=== PATIENT | female | born 1965 | race Caucasian/White ===

== ENCOUNTER → 2019-05-06 07:27 | Outpatient (CLI) | payer OTHER, SELFPAY ==
[2019-05-06 07:58] LABS: Basophils % 0.9 % (0.1-2.0); Eosinophils # 0.2 K/mm3 (0.0-0.4); Eosinophils % 4.5 % (0.1-12.0); Hematocrit 45.4 % (37.0-47.0); Hemoglobin 14.7 g/dL (12.2-16.2); Lymphocytes # 1.7 K/mm3 (0.7-4.5); Lymphocytes % 35.8 % (10-50); Mean Corpuscular HGB Conc 32.5 g/dL (31.8-35.4); Mean Corpuscular Hemoglobin 28.1 pg (27.0-31.2); Mean Corpuscular Volume 86.6 fl (81-99); Mean Platelet Volume 7.6 fl (7.4-10.4); Monocytes # 0.3 K/mm3 (0.1-1.0); Monocytes % 7.2 % (1.7-9.3); Neutrophils # 2.4 K/mm3 (1.8-7.8); Neutrophils % 51.5 % (37.0-80.0); Platelet Count 197 K/mm3 (142-424); Red Blood Count 5.24 M/mm3 (4.20-5.40); Red Cell Distribution Width 14.6 % (11.5-17.5); White Blood Count 4.6 K/mm3 (4.8-10.8)
[2019-05-06 08:30] LABS: Erythrocyte Sedimentation Rate 8 mm/hr (0-30)
[2019-05-06 12:25] LABS: Alanine Aminotransferase 20 U/L (12-78); Albumin Level 3.5 gm/dL (3.4-5.0); Albumin/Globulin Ratio 1.2 (1.1-1.8); Alkaline Phosphatase 101 U/L (46-116); Anion Gap 10.9 mEq/L (5-15); Aspartate Amino Transferase 17 U/L (15-37); Bilirubin,Total 0.6 mg/dL (0.2-1.0); Blood Urea Nitrogen 18 mg/dL (7-18); Carbon Dioxide 27 mmol/L (21.0-32.0); Chloride 110 mmol/L (98-107); Chol/HDL Ratio 2.1 (1-3.5); Cholesterol 114 mg/dL (140-200); Creatinine,Serum 0.68 mg/dL (0.55-1.02); Estimated Glomerular Filt Rate 90 ml/min (>60); Free T4 (Free Thyroxine) 1.07 ng/dl (0.76-1.46); GFR (African American) 109 ML/MIN (>60); Glucose 95 mg/dL (74-106); HDL Cholesterol 54 mg/dL (29-89); LDL Cholesterol 44 mg/dL (0-130); Potassium 3.9 mmoL/L (3.5-5.1); Sodium 144 mmol/L (136-145); Thyroid Stimulating Hormone 1.57 uIU/ml (0.358-3.740); Total Protein,Serum 6.5 gm/dL (6.4-8.2); Triglycerides 80 mg/dL (30-200); VLDL Cholesterol 16 mg/dL (0-40)
[2019-05-06 12:26] LABS: C-Reactive Protein < 0.2 mg/dL (0.0-0.9)
[2019-05-07 13:20] LABS: Folate 14.1 ng/mL (>3.0); Vitamin B12 1515 pg/mL (232-1245); Vitamin D 25 Hydroxy 29.3 ng/mL (30.0-100.0)
[2019-05-07 13:21] LABS: RA Latex Turbid. <10.0 IU/mL (0.0-13.9)
[2019-05-07 13:22] LABS: Anti-Centromere B Antibodies <0.2 AI (0.0-0.9); Anti-Jo-1 <0.2 AI (0.0-0.9); Anti-Smith Antibody <0.2 AI (0.0-0.9); Antichromatin Antibodies <0.2 AI (0.0-0.9); Antiscleroderma-70 Antibodies <0.2 AI (0.0-0.9); RNP Antibodies 0.5 AI (0.0-0.9); Sjogren's Anti-SS-A <0.2 AI (0.0-0.9); Sjogren's Anti-SS-B <0.2 AI (0.0-0.9)
[2019-05-08 01:06] LABS: PTT-LA 35.4 sec (0.0-51.9); dRVVT 40.9 sec (0.0-47.0)
[2019-05-08 07:11] LABS: Anti-Cyclic Citrullinated Pept 19 units (0-19); Anti-DNA (DS) Ab Qn <1 IU/mL (0-9); Lupus Reflex Interpretation Comment: (.)
== END ==
PROVIDERS: Visit Provider Nurse Practitioner Family
DX: R53.83 Other fatigue (principal); M25.50 Pain in unspecified joint; R68.89 Other general symptoms and signs
CPT/HCPCS: 36415; 80053; 80061; 82607; 82652; 82746; 84439; 84443; 85025; 85613; 85651; 86140; 86200; 86225; 86235; 86431

== ENCOUNTER → 2019-05-12 08:00 | Outpatient (CLI) | payer OTHER, SELFPAY ==
--- NOTE | 2019-05-12 08:06 | XR_ITS ---
XR hip LT 2-3V w/pelvis HISTORY: ITS.REASON: pain ORDERING PHYSICIAN: Jacklyn Pepe APRN PATIENT AGE: 53 years COMPARISON: None FINDINGS: There are moderate osteoarthritic changes of the left hip. There is some subchondral cystic change of the femoral head/acetabulum. No fracture or dislocation. IMPRESSION: Moderate osteoarthritis of the left hip with subchondral cystic change
--- NOTE | 2019-05-12 08:06 | XR_ITS ---
XR knee RT 2V HISTORY: ITS.REASON: pain ORDERING PHYSICIAN: Jacklyn Pepe APRN PATIENT AGE: 53 years COMPARISON: None FINDINGS: There are mild tricompartmental osteoarthritic changes greater at the medial compartment and patellofemoral joint. No fracture or dislocation. There is some dystrophic calcification anterior to the proximal patella. IMPRESSION: Osteoarthritis
--- NOTE | 2019-05-12 08:06 | XR_ITS ---
EXAM: XR lumbar spine 2-3V HISTORY: Low back pain ITS.REASON: pain ORDERING PHYSICIAN: Jacklyn Pepe APRN PATIENT AGE: 53 years COMPARISON: None FINDINGS: There is minimal anterolisthesis of L4 on L5 of 3 mm. There is mild degenerative disc disease at L1-L2 and L2-L3. No fracture or dislocation. Mild facet arthritic changes are present at L5-S1. No lytic or blastic change. There is mild sclerosis of left SI joint. There is degenerative disc disease in the lower thoracic spine with mild wedging of T12 and T11 and T10. This may be chronic and could be confirmed with MRI clinically warranted. IMPRESSION: Degenerative changes, no acute finding.
== END ==
PROVIDERS: PCP Emergency Medicine; Visit Provider Nurse Practitioner Family
DX: M25.552 Pain in left hip (principal); M25.561 Pain in right knee; M54.5 Low back pain
CPT/HCPCS: 72100; 73502; 73560

== ENCOUNTER → 2019-06-15 14:57 | Outpatient (CLI) | payer OTHER, SELFPAY ==
--- NOTE | 2019-06-15 15:07 | MR_ITS ---
PROCEDURE: MR HEAD/BRAIN WO CON CLINICAL INDICATION: headache, memory loss And in the 2nd none COMPARISON: No exams were available for comparison TECHNIQUE: Routine multiplanar multi echo sequences are performed without gadolinium enhancement. FINDINGS: No midline shift, mass effect, intracranial hemorrhage, or hydrocephalus is evident. The cerebellopontine angles, cerebellum, and brainstem have an unremarkable appearance. There are few punctate T2 white matter hyperintensities which are nonspecific in the frontal areas and subcortical region in the right parietal lobe. No evidence of acute infarction. The pituitary, optic chiasm, corpus callosum, and craniocervical junction has an unremarkable appearance. No mastoid effusion or sinus air-fluid level. IMPRESSION: There are few punctate T2 white matter hyperintensities nonspecific and may be due to small skin chasity gliotic foci but could also be seen with migraine headache. No acute intracranial findings apparent Dictated by: Reji Gordon MD 06/18/2019 07:06 Electronically signed by Reji Gordon MD in [facility] 06/18/2019 07:06
== END ==
PROVIDERS: PCP Nurse Practitioner Family; Visit Provider Nurse Practitioner Family
DX: R51 Headache (principal); R41.3 Other amnesia; G47.33 Obstructive sleep apnea (adult) (pediatric); E66.01 Morbid (severe) obesity due to excess calories; G47.00 Insomnia, unspecified; G47.19 Other hypersomnia; G47.8 Other sleep disorders; R06.83 Snoring; R53.83 Other fatigue
CPT/HCPCS: 36415; 70551; 86618; 95806

== ENCOUNTER → 2019-08-14 09:44 | Outpatient (CLI) | payer OTHER, SELFPAY ==
[2019-08-14 11:45] LABS: Ferritin 31 ng/mL (8-388)
[2019-08-15 08:23] LABS: Iron 54 ug/dL (27-159); UIBC 251 ug/dL (131-425)
[2019-08-15 18:18] LABS: Iron Saturation 18 % (15-55)
== END ==
PROVIDERS: Nurse Practitioner Family; Visit Provider Specialist
DX: E83.10 Disorder of iron metabolism, unspecified (principal); G25.81 Restless legs syndrome; Z86.39 Personal history of other endocrine, nutritional and metabolic disease
CPT/HCPCS: 36415; 82728; 83540; 83550

== ENCOUNTER → 2019-09-10 09:15 | Outpatient (CLI) | payer OTHER, SELFPAY ==
--- NOTE | 2019-09-10 09:17 | MM_ITS ---
PROCEDURE: MM DIG SCREENING MAMM BI W/CAD CLINICAL INDICATION: Screening There is no personal or family history of breast cancer. COMPARISON: MAMMO SCREEN from 06/14/2016 from 07/10/2018 MAMMO SCREEN from 07/10/2018 from outside facility [place], [place] TECHNIQUE: Standard CC and MLO images were obtained. R2 CAD reviewed. FINDINGS: Breasts are composed primarily of fat with minimal scattered fibroglandular densities throughout both breasts and the findings of bilateral and symmetrical. There is a benign-appearing microcalcification right breast. There is no suspicious lesion and no suspicious microcalcifications. IMPRESSION: Fatty type breast parenchyma with no suspicious lesions seen BI-RAD Category: 2 Benign Finding(s) FOLLOW-UP: 1YR 1 Year Follow-up (A letter has been sent to the patient regarding results of the study.) Dictated by: Dr. Dre Connell MD 09/21/2019 11:[address] Dre Connell MD in [facility] 09/21/2019 11:09
[2019-09-10 10:17] LABS: Basophils # 0.1 K/mm3 (0-0.2); Basophils % 0.7 % (0.1-2.0); Eosinophils # 0.3 K/mm3 (0.0-0.4); Hematocrit 45.1 % (37.0-47.0); Hemoglobin 14.3 g/dL (12.2-16.2); Lymphocytes # 1.9 K/mm3 (0.7-4.5); Lymphocytes % 31.1 % (10-50); Mean Corpuscular HGB Conc 31.8 g/dL (31.8-35.4); Mean Corpuscular Hemoglobin 28.3 pg (27.0-31.2); Mean Corpuscular Volume 89.2 fl (81-99); Mean Platelet Volume 8.3 fl (7.4-10.4); Monocytes # 0.3 K/mm3 (0.1-1.0); Monocytes % 5.1 % (1.7-9.3); Neutrophils # 3.6 K/mm3 (1.8-7.8); Neutrophils % 58.1 % (37.0-80.0); Platelet Count 195 K/mm3 (142-424); Red Blood Count 5.06 M/mm3 (4.20-5.40); Red Cell Distribution Width 13.9 % (11.5-17.5); White Blood Count 6.2 K/mm3 (4.8-10.8)
[2019-09-10 12:29] LABS: Alanine Aminotransferase 28 U/L (12-78); Albumin Level 3.5 gm/dL (3.4-5.0); Albumin/Globulin Ratio 1.1 (1.1-1.8); Alkaline Phosphatase 103 U/L (46-116); Anion Gap 12.2 mEq/L (5-15); Aspartate Amino Transferase 24 U/L (15-37); Bilirubin,Total 0.5 mg/dL (0.2-1.0); Blood Urea Nitrogen 27 mg/dL (7-18); Carbon Dioxide 28 mmol/L (21.0-32.0); Chloride 108 mmol/L (98-107); Chol/HDL Ratio 2.3 (1-3.5); Cholesterol 127 mg/dL (140-200); Creatinine,Serum 0.74 mg/dL (0.55-1.02); Estimated Glomerular Filt Rate 81 ml/min (>60); GFR (African American) 99 ML/MIN (>60); Globulin 3.1 gm/dl (1.3-3.2); Glucose 84 mg/dL (74-106); HDL Cholesterol 56 mg/dL (29-89); LDL Cholesterol 50 mg/dL (0-130); Potassium 4.2 mmoL/L (3.5-5.1); Sodium 144 mmol/L (136-145); T4 (Thyroxine) 9.3 ug/dl (4.7-13.3); Thyroid Stimulating Hormone 1.81 uIU/ml (0.358-3.740); Total Protein,Serum 6.6 gm/dL (6.4-8.2); Triglycerides 103 mg/dL (30-200); VLDL Cholesterol 21 mg/dL (0-40)
[2019-09-10 12:35] LABS: Calcium 8.6 mg/dL (8.5-10.1)
[2019-09-11 10:49] LABS: Vitamin D 25 Hydroxy 16.3 ng/mL (30.0-100.0)
== END ==
PROVIDERS: PCP Nurse Practitioner Family; Visit Provider Nurse Practitioner Family
DX: Z01.818 Encounter for other preprocedural examination (principal); Z12.31 Encounter for screening mammogram for malignant neoplasm of breast; M25.552 Pain in left hip
CPT/HCPCS: 36415; 77067; 80053; 80061; 82652; 84436; 84443; 85025; 93005

== ENCOUNTER → 2019-09-10 09:55 | Outpatient (CLI) | payer OTHER, SELFPAY ==
--- NOTE | 2019-09-10 10:19 | ECG_ITS ---
APPROVED REPORT Exam: Resting ECG HR:59 bpm ECG Measurements Heart Rate 59 AXES MD 140 P 48 QRSd 122 QRS 15 QT 442 T 0 QTc 437 <Conclusion> Sinus bradycardia Right bundle branch block Abnormal ECG Electronically signed by : Balta Hernandez, 09/11/2019 16:36:38
== END ==
PROVIDERS: Visit Provider Nurse Practitioner Family
DX: Z01.818 Encounter for other preprocedural examination (principal)
CPT/HCPCS: 36415; 80053; 80061; 82652; 84436; 84443; 85025; 93005

== ENCOUNTER → 2019-09-24 09:08 | Outpatient (CLI) | payer OTHER, SELFPAY ==
[2019-09-24 12:14] LABS: Anion Gap 11.1 mEq/L (5-15); Blood Urea Nitrogen 16 mg/dL (7-18); Calcium 8.9 mg/dL (8.5-10.1); Carbon Dioxide 30 mmol/L (21.0-32.0); Chloride 105 mmol/L (98-107); Creatinine,Serum 0.81 mg/dL (0.55-1.02); Estimated Glomerular Filt Rate 73 ml/min (>60); GFR (African American) 89 ML/MIN (>60); Glucose 94 mg/dL (74-106); Potassium 4.1 mmoL/L (3.5-5.1); Sodium 142 mmol/L (136-145)
== END ==
PROVIDERS: Visit Provider Nurse Practitioner Family
DX: R79.9 Abnormal finding of blood chemistry, unspecified (principal)
CPT/HCPCS: 36415; 80048

== ENCOUNTER → 2019-10-16 11:41 | Outpatient (CLI) | payer MEDICAID, SELFPAY ==
--- NOTE | 2019-10-16 | CA_ITS ---
APPROVED REPORT Exam: Pharmacologic Technologist: Gwendolyn Lovelace, Ht: 5 ft 3 in Wt: 275 lbs BSA: 2.21 m2 HR: 59 bpm BP: 142/89 mmHg Rhythm: NORMAL SINUS RHYTHM,RBBB Medical History Medications: Mirapex,,,,, Lexapro,,,,, Iron,,,,, Vit D,,,,, ZYRTEC,,,,, B-12,,,,, OxYbuterin,,,,, Vistaril,,,,, WELLBUTIN,,,,, MilLOXICAM,,,,, Cardiac Risk Factors: FHX of CAD Stress Test Details Test: LEXISCAN HR Resting HR: 55 bpm Max Heart Rate (APMHR): 164 bpm Max HR Achieved: 90 bpm Target HR (85% APMHR): 139 bpm % of APMHR: 54 Recovery HR: 70 bpm BP Resting BP: 142.0/89.0 mmHg Max BP: 170.0/71.0 mmHg Recovery BP: 153.0/72.0 mmHg ECG Resting ECG: NORMAL SINUS RHYTHM,RBBB Clinical Reason for Termination: Completed Protocol Exercise duration: 04:12 min Highest Stage Achieved: Exercise capacity: 1.0 METs Stress ECG Conclusion DURING LEXISCAN INFUSION PATIENT HAD NO SYMPTOMS. RARE PVC. <1.5MM ST SEGMENT CHANGES. NON-DIAGNOSTIC. Test Summary REST . . . . . . . Sitting REST 08:09 . . 55 . 142/ 89 . . Stage 1 01:00 . . 89 . . . . Stage 2 01:00 . . 81 . 160/ 75 . . Stage 3 01:00 . . 75 . . . . Stage 4 01:00 . . 71 . 162/ 66 . . Stage 4 01:12 . . 70 . 162/ 66 . Stop exercise at 04:12 RECOVERY 01:00 . . 63 . . . . RECOVERY 02:00 . . 70 . . . . RECOVERY 03:00 . . 63 . 165/ 63 . . RECOVERY 04:00 . . 67 . 170/ 71 . . RECOVERY 05:00 . . 66 . 170/ 71 . . RECOVERY 05:23 . . 67 . 170/ 71 . . Electronically signed by : Luis Hollis, 10/20/2019 05:43:04
--- NOTE | 2019-10-16 11:41 | NM_ITS ---
APPROVED REPORT Exam: Nuclear Stress Test Indication: ABN EKG, PALPITATIONS, FATIQUE, FM. HX.,OBESITY Patient Location: Outpatient Stress Tech: Isaura Stephenson [place] Tech:CANDIDO Sánchez RT (R)(N)(M) Ht: 5 ft 3 in Wt: 275 lbs Bra Size: C HR: 59 bpm BP: 142/89 mmHg BSA: 2.21 m2 BMI: 48.7 History: ABN EKG, PALPITATIONS, FATIQUE, FM. HX.,OBESITY Procedure: Patient received a 0.4 mg of intravenous Lexiscan, resting heart rate 59 bpm, resting blood pressure 142/89 mmHg, with Lexiscan maximum heart rate achived was 82 bpm which is Less than 85 % of the maximum predicted heart rate and blood pressure was 160/75 mmHg. With Lexiscan, patient denied any complaint of chest pain. Electrocardiogram Resting electrocardiogram showed sinus rhythm right bundle branch block, with Lexiscan there is less than 1.[address] segment depression noted from the baseline EKG. The EKG portion of the Lexiscan Myoview is nondiagnostic. Cardiac Stress and Resting SPECT Images: Cardiac Stress and Resting SPECT images were obtained using technetium 99m Myoview 31.4 mCi stress and 10.85 mCi at rest. Gated SPECT with analysis of segmental wall motion and calculation of the ejection fraction also done. Cardiac stress and resting SPECT images show uniform myocardial activity without segmental perfusion abnormality, computer derived ejection fraction is 64% with no regional wall motion abnormality, right ventricle is normal size and contractility. Conclusion: 1. The EKG portion of the Lexiscan Myoview is nondiagnostic. 2. No scintigraphic evidence of reversible ischemia seen, computer derived ejection fraction is 64% with no regional wall motion abnormality, right ventricle is normal size and contractility. 3. Normal Lexiscan Myoview study. Electronically signed by : Luis Hollis, 10/16/2019 15:09:28
--- NOTE | 2019-10-16 12:10 | CA_ITS ---
APPROVED REPORT EXAM: Comprehensive 2D, Doppler, and color-flow Echocardiogram Hydrodynamics Professor: Liset Shrestha RDCS Ht: 5 ft 3 in Wt: 280lbs BSA: 2.23 BP: 110/70 mmHg Indications: Abnormal ECG, Pre-Op Clearance, Obesity 2D Dimensions LVOT 1.92 cm (M/F) 1.5-2.5 M-Mode Dimensions RVDd 2.36 cm (0.9-2.6) LVDd 5.95 cm (3.5-5.7) LVDs 4.12 cm (3.5-5.7) IVSd 0.88 cm (0.6-1.1) PWd 0.84 cm (0.6-1.1) EF (Teich) 57.50% FS 30.80% EDV (Teich) 176.60 mL ESV (Teich) 75.10 mL LV Diastology E/A Ratio 1.14 Mitral Valve MV A Velocity 43.00 (40-130 cm/s) Left Ventricle Left atrium is normal size, left ventricle is normal size, there is no concentric left ventricular hypertrophy, visually estimated ejection fraction 55% with no regional wall motion abnormality, diastolic parameters are within normal range. Right Ventricle Right atrium and right ventricular normal size and contractility. Aortic Valve Aortic valve is minimally thickened and fibrosed, there is no aortic stenosis, there is trace aortic insufficiency. Mitral Valve Mitral valve is grossly normal, there is mild mitral regurgitation. Tricuspid Valve Tricuspid valve is grossly normal, there is mild tricuspid regurgitation. Pulmonic Valve Pulmonic valve is poorly visualized. Great Vessels Aortic root is normal size. Pericardium No significant pericardial effusion noted. Conclusion 1. Normal left ventricular size, preserved left ventricular systolic function, visually estimated ejection fraction 55% with no regional wall motion abnormality, diastolic parameters are within normal range. 2. Trace aortic, mild mitral and tricuspid regurgitation. 3. No significant pericardial effusion noted. Electronically signed by : Luis Hollis, 10/16/2019 13:52:53
--- NOTE | 2019-10-16 13:33 | HMH.ITSHM ---
Current Home Medications as stated by this patient Vianca Mello or district sales representative. []b-12, vit d, mirapex, wellbutrin, zyrtec, lexapro, vistatril, maloxican, oxybutone
== END ==
PROVIDERS: PCP Nurse Practitioner Family; Visit Provider Nurse Practitioner Family
DX: Z01.810 Encounter for preprocedural cardiovascular examination (principal); R94.31 Abnormal electrocardiogram [ECG] [EKG]
CPT/HCPCS: 78452; 93017; 93306; A9502; J2785

== ENCOUNTER → 2021-05-31 13:44 | Outpatient (CLI) | payer MEDICAID, SELFPAY ==
--- NOTE | 2021-05-31 13:44 | MM_ITS ---
PROCEDURE: MM DIG SCREENING MAMM BI W/CAD Digital Breast Tomosynthesis Included CLINICAL INDICATION: Breast cancer screening by mammogram COMPARISON: MG from 07/10/2018 MG MAMMO SCREEN from 07/10/2018 MG MM DIG SCREENING MAMM BI W/CAD from 09/10/2019 TECHNIQUE: Standard CC and MLO images and 3D Tomosynthesis was obtained. R2 CAD reviewed. FINDINGS: The breasts are almost entirely fatty. No suspicious appearing mass, malignant-appearing microcalcification, architectural distortion, or skin thickening. No significant change. There are benign-appearing calcifications and benign-appearing nodular density is present in the upper deep aspect of the right breast consistent with a lymph node and in the lower inner aspect of the right breast which is stable. IMPRESSION: Benign findings. No evidence of malignancy BI-RAD Category: 2 Benign Finding FOLLOW-UP: 1 YR 1 Year Follow-up (A letter has been sent to the patient regarding results of the study.) Dictated by: Reji Gordon MD 06/08/2021 09:50 Reji Gordon MD in [facility] 06/08/2021 09:50
== END ==
PROVIDERS: PCP Emergency Medicine; Visit Provider Physician Assistant
DX: Z12.31 Encounter for screening mammogram for malignant neoplasm of breast (principal)
CPT/HCPCS: 77063; 77067

== ENCOUNTER 2021-06-28 17:17 | Inpatient (IN) | payer MEDICAID, SELFPAY ==
[2021-06-28] VITALS (14 sets, daily range): BP systolic 92–139; BP diastolic 50–84; PULSE 60–95; RESP 13–38; TEMP 37.9; O2SAT 56–98; BMI 51.5
--- NOTE | 2021-06-28 17:25 | XR_ITS ---
PROCEDURE INFORMATION: Exam: XR Chest Exam date and time: 06/28/2021 5:25 PM Age: 55 years old Clinical indication: Patient HX: Cough; Low o2 TECHNIQUE: Imaging protocol: XR of the chest. Views: 1 view. COMPARISON: No relevant prior studies available. FINDINGS: Lungs: Patchy bilateral airspace opacities are seen. Pleural spaces: Unremarkable. No pleural effusion. No pneumothorax. Heart/Mediastinum: Unremarkable. No cardiomegaly. Bones/joints: Unremarkable. IMPRESSION: Patchy bilateral airspace opacities most compatible with infection.
--- NOTE | 2021-06-28 17:34 | ECG_ITS ---
APPROVED REPORT Exam: Resting ECG HR:93 bpm ECG Measurements Heart Rate 93 AXES WI 114 P 21 QRSd 122 QRS -30 QT 388 T -33 QTc 482 Conclusion Normal sinus rhythm Left axis deviation Right bundle branch block Moderate voltage criteria for LVH, may be normal variant T wave abnormality, consider inferolateral ischemia Abnormal ECG Electronically signed by : Balta Hernandez MD 06/29/2021 17:28:48
[2021-06-28 18:04] LABS: Influenza A, PCR Not Detected (NotDetected); Influenza B, PCR Not Detected (NotDetected)
[2021-06-28 18:07] LABS: Basophils # 0.1 K/mm3 (0-0.2); Basophils % 1.3 % (0.1-2.0); Eosinophils % 0.2 % (0.1-12.0); Hematocrit 47.8 % (37.0-47.0); Hemoglobin 15.7 g/dL (12.2-16.2); Lymphocytes # 1.3 K/mm3 (0.7-4.5); Lymphocytes % 20.8 % (10-50); Mean Corpuscular HGB Conc 32.8 g/dL (31.8-35.4); Mean Corpuscular Volume 85.4 fl (81-99); Mean Platelet Volume 8.9 fl (7.4-10.4); Monocytes # 0.4 K/mm3 (0.1-1.0); Monocytes % 6.6 % (1.7-9.3); Neutrophils # 4.3 K/mm3 (1.8-7.8); Neutrophils % 71.1 % (37.0-80.0); Platelet Count 219 K/mm3 (142-424); Red Blood Count 5.59 M/mm3 (4.20-5.40); Red Cell Distribution Width 14.8 % (11.5-17.5)
[2021-06-28 18:11] LABS: Chloride 94 mmol/L (98-107); Potassium 3.6 mmoL/L (3.5-5.1); Sodium 133 mmol/L (136-145)
[2021-06-28 18:14] LABS: Alanine Aminotransferase 33 U/L (12-78); Albumin Level 3.4 g/dl (3.5-5.0); Alkaline Phosphatase 90 U/L (38-126); Anion Gap 13.6 mEq/L (5-15); Aspartate Amino Transferase 93 U/L (14-36); Bilirubin,Total 0.8 mg/dl (0.2-1.3); Blood Urea Nitrogen 20 mg/dl (7-17); Calcium 8.3 mg/dl (8.4-10.2); Carbon Dioxide 29 mmol/L (22.0-30.0); Creatinine Clearance Estimated 60 mL/min (50-200); Estimated Glomerular Filt Rate 65 ml/min (>60); GFR (African American) 78 ML/MIN (>60); Globulin 3.3 g/dL (1.3-3.2); Glucose 121 mg/dl (74-100); Total Protein,Serum 6.7 g/dl (6.3-8.2)
[2021-06-28 18:24] LABS: NT Pro Brain Natriuretic Pep. 73.6 pg/mL (0-125)
[2021-06-28 18:27] LABS: Troponin I 0.03 ng/ml (0.00-0.034)
--- NOTE | 2021-06-28 18:38 | HMH.EDGENADL ---
ED Disposition Clinical Impression: Pneumonia due to COVID-19 virus, Acute respiratory failure with hypoxia, Morbidly obese HTN (hypertension) Qualifiers: Hypertension type: primary hypertension Qualified Code(s): I10 - Essential (primary) hypertension Disposition: Admitted As Inpatient Condition on Discharge: Serious Referrals: Jj Livingston MD [Primary Care Provider] - - Critical Care Critical Care Time: Yes Attestation: On 06/28/21, the high probability of a clinically significant, sudden or life threatening deterioration of the following system(s) required my full and direct attention, intervention and personal management. The time I documented below is in addition to time spent performing reported procedures but includes the following listed in this critical care notation. Total Critical Care Time: 30 Vital system(s) involved:: Circulatory Failure, Metabolic Failure, Respiratory Failure My critical care processes included: Assessment & monitoring of V/S, Initial and Re-exams, Data Review/Interpretation, Coordinating Care, Medication Orders and management, Documentation Medical Decision Making - Medical Records Medical records reviewed: Yes: I reviewed the patient's medical records. - Michael Inquiry Pt receiving controlled substance: No Vital Signs: 06/28/21 17:18 06/28/21 17:19 06/28/21 17:30 Temperature 100.2 F H Temperature Source Oral Pulse Rate 91 H Pulse Rate [Left Radial] 83 Respiratory Rate 28 H 25 H Blood Pressure 139/83 Blood Pressure [Right Arm] 139/83 Blood Pressure Mean [Right Arm] 101 Blood Pressure Source [Right Arm] Automatic Cuff Blood Pressure Position [Right Arm] Sitting 02 Sat by Pulse Oximetry 56 L 92 L 64 L Oxygen Delivery Method Room Air BiPAP 06/28/21 18:00 Temperature Temperature Source Pulse Rate 95 H Pulse Rate [Left Radial] Respiratory Rate 18 Blood Pressure 123/77 Blood Pressure [Right Arm] Blood Pressure Mean [Right Arm] Blood Pressure Source [Right Arm] Blood Pressure Position [Right Arm] 02 Sat by Pulse Oximetry 96 Oxygen Delivery Method - Lab Data Lab Results 06/28/21 17:40: WBC 6.0, RBC 5.59 H, Hgb 15.7, Hct 47.8 H, MCV 85.4, MCH 28.0, MCHC 32.8, RDW 14.8, Plt Count 219, MPV 8.9, Neut % (Auto) 71.1, Lymph % (Auto) 20.8, [place] % (Auto) 6.6, Eos % (Auto) 0.2, Baso % (Auto) 1.3, Neut # (Auto) 4.3, Lymph # (Auto) 1.3, [place] # (Auto) 0.4, Eos # (Auto) 0.0, Baso # (Auto) 0.1 06/28/21 17:40: Sodium 133 L, Potassium 3.6, Chloride 94 L, Carbon Dioxide 29, Anion Gap 13.6, BUN 20 H, Creatinine 0.90, Estimated Creat Clear 60, Estimated GFR 65, Est GFR ( Amer) 78, Glucose 121 H, Calcium 8.3 L, Total Bilirubin 0.8, AST 93 H, ALT 33, Alkaline Phosphatase 90, Troponin I 0.03, NT-Pro-B Natriuret Pep 73.6, Total Protein 6.7, Albumin 3.4 L, Globulin 3.3 H, Albumin/Globulin Ratio 1.0 L 06/28/21 17:40: SARS-CoV-2 (PCR) Detected A, Influenza A Untype (PCR) Not detected, Influenza Type B (PCR) Not detected Result diagrams: 06/28/21 17:40 06/28/21 17:40 Orders (Tests/Meds): ED MEDICATIONS Generic Name Dose Route Start Last Admin Trade Name Freq PRN Reason Stop Dose Admin Sodium Chloride 1,000 mls @ 999 mls/hr 06/28/21 17:30 06/28/21 17:38 Sod Chlor 0.9% 1000ml Bag IV 06/28/21 18:30 999 mls/hr .Q1H1M YARITZA Administration Discontinued Medications Generic Name Dose Route Start Last Admin Trade Name Freq PRN Reason Stop Dose Admin Acetaminophen 1,000 mg 06/28/21 18:38 Acetaminophen 500mg Tab PO 06/28/21 18:39 ONCE ONE Dexamethasone Sodium Phosphate 10 mg 06/28/21 17:25 06/28/21 17:38 Dexamethasone 4mg/Ml 5ml Mdv IV 06/28/21 17:26 10 mg ONCE ONE Administration ORDERS Category Date Time Status Lactic Acid Stat Lab 06/28/21 18:37 Received Troponin I Q3H Lab 06/28/21 20:30 Ordered Troponin I Q3H Lab 06/28/21 23:30 Ordered - ECG Data Tracing #1 I reviewed this ECG and interpret
--- NOTE | 2021-06-28 18:46 | PC.NURSE ---
paged Dr Hernandez
--- NOTE | 2021-06-28 18:50 | PC.NURSE ---
notified journeyman powerhouse operator of admission no beds available pt will be boarding in ER
--- NOTE | 2021-06-28 18:50 | PC.NURSE ---
CAlled house about admission, due to high inpatient, pt will need to board in the ER
[2021-06-28 18:52] LABS: Coronavirus 19, PCR Detected (NotDetected)
[2021-06-28 18:53] LABS: Lactic Acid 1.6 mmol/L (0.7-2.1)
--- NOTE | 2021-06-28 19:30 | PC.NURSE ---
CHecked on pt's bipap and care. Pt reports to be feeling better . Less SOA. BP cuff replaced as it was off.
--- NOTE | 2021-06-28 20:11 | HMH.HP ---
*Admission Date: 06/28/21 *Chief complaint: sob *History of present illness: this patient presented to the ed - a 55-year-old female presented to the emergency department with some difficulty breathing. Patient was diagnosed with coronavirus last week. Patient is unvaccinated. She states that her difficulty breathing is been getting worse over the last few days. She states that she could not catch her breath today which prompted her to come the emergency department. Patient appears to be in severe respiratory distress on presentation. She has discoloration and mottling. She is talking in 2 word sentences. She has had a mild cough, nonproductive in nature. No hemoptysis. Denies any associated chest pain or palpitations. No headache or change in vision. Has had some fevers and chills. No abdominal pain. No diarrhea. pt was found to have pneumonia and hypoxia and was admitted for resp failure treatment and pul eval [facility] History I have reviewed the patient's past medical history: Yes Medical History: Reports:: Anxiety, Cancer, Deep Vein Thrombosis, Depression, Pulmonary Embolism Denies:: Diabetes Mellitus Type 1, Diabetes Mellitus Type 2, Gastroesophageal Reflux Disease(GERD) *Have you ever received a pneumonia vaccine?: No *Have you received a flu vaccine this season?: No Other Medical History: Reports: Anemia, Arthritis, Other Laterality Cases: Right: Carpal Tunnel Release Other Surgeries: Yes: Bariatric Surgery, Colonoscopy, , Hysterectomy-Total, Other Amputation: No Fractures: No - *Social History Smoking Status: Former smoker # Packs/Day (cigarettes): 1 #Yrs smoked (if former smoker): 15 Alcohol Intake: never Alcohol Intake Frequency:: other Substance Use Type: denies use *Occupational Status:: retired, disabled Housing: house Household Members: family, spouse *Travel in the last 8 weeks: None - Psychiatric History Pschychiatric History:: Reports:: Anxiety, Depression Family Hx:: Cancer, Hypertension, Diabetes, Coronary Artery Disease, Stroke, Heart Attack Review of Systems - Review of Systems Review of systems:: pertinent systems reviewed and negative unless documented below - Constitutional Denies fever(s), Denies headache(s) - Eyes Denies change in vision - ENT Denies sore throat - *Cardiovascular Denies chest pain with activity, Reports shortness of breath - *Respiratory Reports cough, Reports shortness of breath, Denies coughing up blood - *Gastrointestinal Denies abdominal pain - *Genitourinary Denies blood in urine - *Musculoskeletal Denies joint pain - Integumentary/Breasts Denies rash - *Neurologic Denies headache(s), Denies seizure-like activity - Psychiatric Denies confusion Meds Home Medications Medication Instructions Recorded Confirmed Type mecobalamin (vitamin B12) 1,000 1,000 mcg SUBLINGUAL DAILY 06/04/19 05/31/21 History mcg disintegrating tablet,sublingual oxybutynin chloride 5 mg 5 mg PO DAILY #30 tab 08/18/19 05/31/21 Rx tablet,extended release 24 hr ferrous sulfate 142 mg (45 mg 142 mg PO DAILY 10/13/19 05/31/21 History iron) tablet,extended release amlodipine 10 mg tablet 10 mg PO DAILY #30 tab 10/27/20 05/31/21 Rx albuterol sulfate 90 mcg/actuation 2 puff INHALATION Q4-6H PRN 30 05/22/21 05/31/21 Rx aerosol inhaler Days #6.7 g cetirizine 10 mg tablet 10 mg PO DAILY #30 tab 05/26/21 05/31/21 Rx fluticasone propionate 50 1 spray INTRANASAL DAILY #16 g 05/26/21 05/31/21 Rx mcg/actuation nasal spray,suspension bupropion HCl 300 mg 24 hr tablet, 300 mg PO DAILY #30 tab 05/30/21 05/31/21 Rx extended release escitalopram oxalate 20 mg tablet 20 mg PO DAILY #30 tab 05/30/21 05/31/21 Rx hydroxyzine pamoate 25 mg capsule 25 mg PO TID PRN #90 cap 05/30/21 05/31/21 Rx bisoprolol fumarate 5 mg tablet 5 mg PO DAILY #30 tab 05/31/21 05/31/21 Rx peg 3350-electrolytes 236 240 ml PO Q10M #4000 ml 06/22/21 Rx gram-22.74 gram-6.74 gram-5.8
--- NOTE | 2021-06-28 21:00 | PC.NURSE ---
Pt resting quietly, tolerating bipap well at this time.
[2021-06-28 21:20] LABS: Troponin I 0.05 ng/ml (0.00-0.034)
--- NOTE | 2021-06-28 22:15 | PC.NURSE ---
FS obtained. Pt transferred to regular floor bed for comfort d/t boarding in ER. Pt also reports she has not been able to void. Cruz cath placed and immediate 600ml return, left in d/t retention.
[2021-06-28 22:39] LABS: POC Glucose,Bedside 132 (70-110)
--- NOTE | 2021-06-28 22:57 | CT_ITS ---
PROCEDURE INFORMATION: Exam: CTA Chest With Contrast Exam date and time: 06/28/2021 10:57 PM Age: 55 years old Clinical indication: Shortness of breath; Additional info: SOB, covid+ TECHNIQUE: Imaging protocol: Computed tomographic angiography of the chest with contrast. 3D rendering (Not supervised by radiologist): MIP and/or 3D reconstructed images were created by the technologist. Radiation optimization: All CT scans at this facility use at least one of these dose optimization techniques: automated exposure control; mA and/or kV adjustment per patient size (includes targeted exams where dose is matched to clinical indication); or iterative reconstruction. Contrast material: ISOVUE 370; Contrast volume: 70 ml; Contrast route: INTRAVENOUS (IV); COMPARISON: CR XR CHEST PORTABLE 06/28/2021 6:15 PM FINDINGS: Pulmonary arteries: No evidence of pulmonary embolus to the segmental level in most cases Aorta: Unremarkable. No aortic aneurysm. No aortic dissection. Lungs: Multiple calcified pulmonary nodules are seen. Moderate bilateral patchy airspace opacities are seen. Moderate bilateral dependent collapse/consolidation. Pleural spaces: Unremarkable. No pneumothorax. No pleural effusion. Heart: Unremarkable. No cardiomegaly. No pericardial effusion. Lymph nodes: Mild mediastinal adenopathy is seen with calcifications. Stomach and bowel: Postsurgical changes seen in the stomach. Moderate hiatal hernia is present. Bones/joints: Unremarkable. No acute fracture. Soft tissues: Unremarkable. IMPRESSION: 1. No evidence of pulmonary embolus 2. Moderate multifocal airspace disease compatible with infection
--- NOTE | 2021-06-28 23:04 | PC.NURSE ---
Dr. Livingston would like ABG & CTA PE protocol, respiratory and radiology notified.
--- NOTE | 2021-06-28 23:21 | PC.NURSE ---
Collected 3rd troponin. Pt denies any complaints. Offered water, pt refused at this time.
[2021-06-28 23:28] LABS: ABG Base Excess -5.3 mmol/L (-2.4-2.3); ABG HCO3 19.9 mmhg (22.0-26.0); ABG Oxygen Saturation 96 % (90-100); ABG PCO2 34.7 mmhg (35.0-45.0); ABG PH 7.38 mmol/L (7.35-7.45); ABG PO2 83.7 mmhg (80-100); ABG TCO2 20.9 mmhg (23-27)
[2021-06-28 23:30] LABS: Allen's Test Acceptable; Oxygen 100 %; Pressure Support 8; Source Right Radial
--- NOTE | 2021-06-28 23:37 | PC.NURSE ---
pt to ct scan, Miguel Kendall RN to accompany radiology
[2021-06-28 23:48] LABS: Troponin I 0.04 ng/ml (0.00-0.034)
[2021-06-29] VITALS (60 sets, daily range): BP systolic 94–182; BP diastolic 49–103; PULSE 36–110; RESP 16–33; TEMP 37; O2SAT 90–98
--- NOTE | 2021-06-29 01:00 | PC.NURSE ---
pt sleeping at this time, call light at bedside.
--- NOTE | 2021-06-29 02:37 | PC.NURSE ---
Pt given water and respiratory at bedside to adjust mask.
--- NOTE | 2021-06-29 02:54 | PC.NURSE ---
Pt had stefany episode down to 38, sinus stefany with pvcs noted. Dr. Livingston notified.
[2021-06-29 03:32] LABS: POC Glucose,Bedside 156 (70-110)
[2021-06-29 04:11] LABS: Basophils % 0.9 % (0.1-2.0); Eosinophils % 0.1 % (0.1-12.0); Hematocrit 43.2 % (37.0-47.0); Hemoglobin 14.2 g/dL (12.2-16.2); Lymphocytes # 0.8 K/mm3 (0.7-4.5); Lymphocytes % 17.3 % (10-50); Mean Corpuscular HGB Conc 32.9 g/dL (31.8-35.4); Mean Corpuscular Hemoglobin 28.9 pg (27.0-31.2); Mean Corpuscular Volume 87.7 fl (81-99); Monocytes # 0.2 K/mm3 (0.1-1.0); Monocytes % 4.4 % (1.7-9.3); Neutrophils # 3.4 K/mm3 (1.8-7.8); Neutrophils % 77.3 % (37.0-80.0); Platelet Count 193 K/mm3 (142-424); Red Blood Count 4.93 M/mm3 (4.20-5.40); Red Cell Distribution Width 15.1 % (11.5-17.5); White Blood Count 4.4 K/mm3 (4.8-10.8)
[2021-06-29 04:13] LABS: Chloride 99 mmol/L (98-107); Potassium 3.7 mmoL/L (3.5-5.1); Sodium 135 mmol/L (136-145)
[2021-06-29 04:15] LABS: Blood Urea Nitrogen 20 mg/dl (7-17); Creatinine Clearance Estimated 67 mL/min (50-200); Estimated Glomerular Filt Rate 74 ml/min (>60); GFR (African American) 89 ML/MIN (>60)
[2021-06-29 04:16] LABS: Alanine Aminotransferase 27 U/L (12-78); Alkaline Phosphatase 76 U/L (38-126); Anion Gap 11.7 mEq/L (5-15); Aspartate Amino Transferase 78 U/L (14-36); Bilirubin,Total 0.6 mg/dl (0.2-1.3); Carbon Dioxide 28 mmol/L (22.0-30.0); Globulin 3.1 g/dL (1.3-3.2); Glucose 175 mg/dl (74-100); Total Protein,Serum 6.1 g/dl (6.3-8.2)
--- NOTE | 2021-06-29 06:00 | PC.NURSE ---
Pt's HR dropped to 36 during sleep. She does c/o fatigue but awakens easily. Obtained ekg. Dr. Livingston notified.
--- NOTE | 2021-06-29 06:07 | ECG_ITS ---
APPROVED REPORT Exam: Resting ECG HR:97 bpm ECG Measurements Heart Rate 97 AXES NV 144 P 66 QRSd 118 QRS -39 QT 378 T -18 QTc 480 Conclusion Normal sinus rhythm Left axis deviation Right bundle branch block Moderate voltage criteria for LVH, may be normal variant Abnormal ECG Electronically signed by : Balta Hernandez MD 06/30/2021 17:38:16
--- NOTE | 2021-06-29 06:43 | CA_ITS ---
APPROVED REPORT EXAM: Comprehensive 2D, Doppler, and color-flow Echocardiogram Grader Tender: Hoda Perales CRT Ht: 5 ft 4 in Wt: 300lbs BSA: 2.32 BP: 107/75 mmHg Indications: Covid 19, Murmur, Shortness of Breath, Hypertension/HDD, obesity, bariatric surgery, pt on bipap, ex smoker, old pe and dvt 2D Dimensions LVOT 1.96 cm (M/F) 1.5-2.5 LA Volume 55.50 mL LA Volume Index 23.90 mL/m2 (M/F) 16-34 M-Mode Dimensions RVDd 2.64 cm (0.9-2.6) LA Diam 3.66 cm (1.9-4.0) LVDd 5.22 cm (3.5-5.7) Ao Diam 3.85 cm (2.0-3.7) LVDs 2.29 cm (3.5-5.7) IVSd 1.36 cm (0.6-1.1) PWd 1.14 cm (0.6-1.1) EF (Teich) 86.30% FS 56.10% EDV (Teich) 130.70 mL TAPSE 2.46 (<1.7) ESV (Teich) 17.90 mL LV Diastology E Decel Time 227.00 (160-240 msec) E/A Ratio 0.64 MED E' 4.90 (< 7 cm/sec) MED A' 11.60 cm/s E'/MED E' Ratio 10.84 (>14) LAT E' 9.50 (<10 cm/sec) LAT A' 10.30 cm/s E/LAT E' Ratio 5.59 (>14) Aortic Valve AI PHT 716.00 ms AO Peak GR. 3.60 mmHg Mitral Valve MV E Max Fareed. 53.00 (40-130 cm/s) MV A Velocity 84.00 (40-130 cm/s) E/A Ratio 0.64 MV Decel. Time 227.00 (160-240 ms) MV PHT 66.00 ms Pulmonary Valve PV Peak Velocity 117.00 (50-150 cm/s) Tricuspid Valve TR P. Velocity 275.00 cm/s RAP Estimate 10.00 mmHg RVSP 40.30 mmHg Left Ventricle Left atrium is mildly enlarged, left ventricle is normal size, mild concentric left ventricular hypertrophy, visually estimated ejection fraction 55% with no regional wall motion abnormality. Grade 1 diastolic dysfunction seen without tissue Doppler evidence of raise left atrial pressure. Right Ventricle Right atrium and right ventricle are mildly enlarged with normal contractility. Aortic Valve Aortic valve is minimally thickened and fibrosed, there is no aortic stenosis, there is mild aortic insufficiency. Mitral Valve Mitral valve grossly normal, there is mild mitral regurgitation. Tricuspid Valve Tricuspid grossly normal, there is mild tricuspid regurgitation, calculated right ventricular systolic pressure 37mmHg. Pulmonic Valve Pulmonic valve is poorly visualized. Great Vessels Aortic root is normal size. Inferior vena cava is not well visualized. Pericardium No significant pericardial effusion noted. Conclusion 1. Mild biatrial alignment, normal left ventricular size, mild concentric left ventricular hypertrophy, visually estimated ejection fraction 55% with no regional wall motion abnormality, grade 1 diastolic dysfunction seen without tissue Doppler evidence of raise left atrial pressure. 2. Mildly enlarged right ventricle with normal contractility. 3. Mild aortic, mild mitral and tricuspid regurgitation. Calculated right ventricular systolic pressure 37 mmHg. 4. No significant pericardial effusion noted. Electronically signed by : Luis Hollis MD 06/29/2021 13:34:30
--- NOTE | 2021-06-29 06:48 | PC.NURSE ---
notified CV lab of echo order
--- NOTE | 2021-06-29 07:23 | PC.NURSE ---
report received from cage shift manager. pt has been bradycardic per report, echo ordered. pt asleep with BIPAP in place.
--- NOTE | 2021-06-29 07:27 | PC.NURSE ---
CV lab at bedside
--- NOTE | 2021-06-29 08:11 | HMH.PHAINT ---
MEDICATION RECONCILIATION COMPLETED FROM [facility] PHARMACY INFORMATION
--- NOTE | 2021-06-29 09:40 | HMH.CNCARD ---
History of Present Illness Consult date: 06/29/21 Requesting physician: Jj Livingston Chief complaint: SOA History of present illness: This is a 55-year-old white female who presented to the emergency department with complaints of shortness of breath. The patient was diagnosed with COVID-19 last week. She is unvaccinated. The patient states that over the last several days she had worsening in her shortness of breath. The patient states that anytime she did anything she felt like she could not catch her breath and this was even occurring at rest. She states that is what prompted her to come into the emergency department. On arrival her oxygen saturation was around 56% on room air. The patient was in severe respiratory distress. According to her emergency department visit she was purple and mottled at her initial evaluation. She was only able to speak in 2 word sentences. She did have a mild nonproductive cough associated with the shortness of breath. She denies any chest pain or pressure. She denies any lower extremity edema. She denies any fever, chills, nausea, vomiting, diarrhea. She states that she was unable to lie flat because of the shortness of breath. The patient was started on BiPAP and she is tolerating this well. She is satting 95% on BiPAP at this time. [facility] History I have reviewed the patient's past medical history: Yes Medical History: Reports:: Anxiety, Cancer, Deep Vein Thrombosis, Depression, Pulmonary Embolism Denies:: Diabetes Mellitus Type 1, Diabetes Mellitus Type 2, Gastroesophageal Reflux Disease(GERD) *Have you ever received a pneumonia vaccine?: No *Have you received a flu vaccine this season?: No Other Medical History: Reports: Anemia, Arthritis, Other Laterality Cases: Right: Carpal Tunnel Release Other Surgeries: Yes: Bariatric Surgery, Colonoscopy, , Hysterectomy-Total, Other Amputation: No Fractures: No - *Social History Smoking Status: Former smoker # Packs/Day (cigarettes): 1 #Yrs smoked (if former smoker): 15 Alcohol Intake: never Alcohol Intake Frequency:: other Substance Use Type: denies use *Occupational Status:: retired, disabled Housing: house Household Members: family, spouse *Travel in the last 8 weeks: None - Psychiatric History Pschychiatric History:: Reports:: Anxiety, Depression Family Hx:: Cancer, Hypertension, Diabetes, Coronary Artery Disease, Stroke, Heart Attack Meds Home Medications Medication Instructions Recorded Confirmed Type mecobalamin (vitamin B12) 1,000 1,000 mcg SUBLINGUAL DAILY 06/04/19 05/31/21 History mcg disintegrating tablet,sublingual ferrous sulfate 142 mg (45 mg 142 mg PO DAILY 10/13/19 05/31/21 History iron) tablet,extended release albuterol sulfate 90 mcg/actuation 2 puff INHALATION Q4-6H PRN 30 05/22/21 05/31/21 Rx aerosol inhaler Days #6.7 g hydroxyzine pamoate 25 mg capsule 25 mg PO TID PRN #90 cap 05/30/21 05/31/21 Rx Amlodipine Besylate [Amlodipine 10 mg PO DAILY 06/29/21 History 10mg Tab] Benzonatate [Benzonatate 100mg 100 mg PO Q8H PRN 06/29/21 06/29/21 History cap] Cetirizine HCl 10 mg PO DAILY 06/29/21 06/29/21 History Escitalopram Oxalate 20 mg PO DAILY 06/29/21 06/29/21 History Fluticasone Propionate 1 spray INTRANASAL DAILY 06/29/21 History Oxybutynin Chloride [Oxybutynin 10 mg PO DAILY 06/29/21 06/29/21 History Chloride ER] bisoproloL fumarate [Bisoprolol 5 mg PO DAILY 06/29/21 History Fumarate] buPROPion HCL [Wellbutrin XL] 300 mg PO DAILY 06/29/21 06/29/21 History ondansetron HCL [Ondansetron 4mg 4 mg PO Q8H PRN 06/29/21 06/29/21 History tab*] Allergies Allergy/AdvReac Type Severity Reaction Status Date / Time No Known Allergies Allergy Verified 05/31/21 14:35 Exam Vital signs and Labs for Last 24 Hours: Temp Pulse Resp BP Pulse Ox 100.2 F H 47 L 26 H 114/72 96 06/28/21 17:18 06/29/21 09:00 06/29/21 09:00 06/29/21 09:00 06/29/21 09:00 Laboratory Res
--- NOTE | 2021-06-29 09:49 | PC.NURSE ---
Notified pharmacy of need for medication. Spoke with Km
--- NOTE | 2021-06-29 10:30 | PC.NURSE ---
Dopamine drip started at this time per order on DEC. Confirmed dosing with AMANDA Marcum. Pt sleeping at this time. No new needs
--- NOTE | 2021-06-29 11:30 | PC.NURSE ---
Dr Rahman at bedside
--- NOTE | 2021-06-29 11:56 | PC.NURSE ---
Notified Resp of need for duoneb
--- NOTE | 2021-06-29 12:06 | PC.NURSE ---
Spoke with Dr. Mtz who confirmed pt could have regular diet for lunch. Notified dietary
--- NOTE | 2021-06-29 12:14 | PC.NURSE ---
Spoke with Dr. martinez and he advised to keep pt NPO at this time
--- NOTE | 2021-06-29 12:25 | PC.NURSE ---
Increased dopamine to 10mcg/kg/min.. Heart rate was in the 40's. paged cardiology at this time
--- NOTE | 2021-06-29 12:30 | PC.NURSE ---
Spoke with Ivelisse Almodovar from cardiology and advised her I had increased dopamine at this time.
--- NOTE | 2021-06-29 13:27 | ECG_ITS ---
APPROVED REPORT Exam: Resting ECG HR:53 bpm ECG Measurements Heart Rate 53 AXES PA 142 P 46 QRSd 130 QRS -16 QT 550 T -43 QTc 516 Conclusion Sinus bradycardia with frequent premature ventricular complexes Right bundle branch block Abnormal ECG Electronically signed by : Balta Hernandez MD 06/30/2021 17:39:50
--- NOTE | 2021-06-29 13:37 | PC.NURSE ---
PT heart rate increased into the 130's and she became hypertenisve. Notified Ivelisse Almodovar and went to pt bedside and performed EKG. Ivelisse arrived at bedside, advised her pt heart rate shot up and she became hypertensive. PT had no complaints and said she only felt tired. Ivelisse advised to back dopamine back down to 5mcg. Dopamine drip adjusted at this time.
--- NOTE | 2021-06-29 13:50 | PC.NURSE ---
Pt heart rate back in the 50/60's pressure 138/73. No complaints. Pt resting
--- NOTE | 2021-06-29 14:23 | PC.NURSE ---
HR 47 BP 127/73, DOPAMINE GTT TITRATED UP TO 7.5 MCG/KG/MIN
--- NOTE | 2021-06-29 14:32 | HMH.PULMCON ---
*Admission Date: 06/28/21 *Reason for consult:: Acute hypoxic respiratory failure, COVID-19 pneumonia *History of present illness: Ms. Cardenas is a 55-year-old female no significant smoking history smoked 30 years ago around [id number] smoking history, no prior respiratory complaints denies any inhaler use except after her recent diagnosis of pneumonia presented to the hospital worsening respiratory status and found to be COVID-19 pneumonia positive found to be hypoxic needing noninvasive ventilation to maintain her saturations at desired levels and pulmonary was called for further management. [facility] History Medical History: Reports:: Anxiety, Cancer, Deep Vein Thrombosis, Depression, Pulmonary Embolism Denies:: Diabetes Mellitus Type 1, Diabetes Mellitus Type 2, Gastroesophageal Reflux Disease(GERD) *Have you ever received a pneumonia vaccine?: No *Have you received a flu vaccine this season?: No Other Medical History: Reports: Anemia, Arthritis, Other Laterality Cases: Right: Carpal Tunnel Release Other Surgeries: Yes: Bariatric Surgery, Colonoscopy, , Hysterectomy-Total, Other Amputation: No Fractures: No - *Social History Smoking Status: Former smoker # Packs/Day (cigarettes): 1 #Yrs smoked (if former smoker): 15 Alcohol Intake: never Alcohol Intake Frequency:: other Substance Use Type: denies use *Occupational Status:: retired, disabled Housing: house Household Members: family, spouse *Travel in the last 8 weeks: None - Psychiatric History Pschychiatric History:: Reports:: Anxiety, Depression Family Hx:: Cancer, Hypertension, Diabetes, Coronary Artery Disease, Stroke, Heart Attack ROS - Cons Reports anorexia, Reports body ache(s) - Card Reports shortness of breath, Reports shortness of breath with activity - Resp Respiratory: Reports chest congestion, Reports cough, Reports dyspnea, Reports dyspnea on exertion, Denies coughing up blood, Denies pain on inspiration - GI Gastrointestingal: Denies: abdominal pain - Psych Reports abnormal sleep pattern Meds Home Medications Medication Instructions Recorded Confirmed Type mecobalamin (vitamin B12) 1,000 1,000 mcg SUBLINGUAL DAILY 06/04/19 05/31/21 History mcg disintegrating tablet,sublingual ferrous sulfate 142 mg (45 mg 142 mg PO DAILY 10/13/19 05/31/21 History iron) tablet,extended release albuterol sulfate 90 mcg/actuation 2 puff INHALATION Q4-6H PRN 30 05/22/21 05/31/21 Rx aerosol inhaler Days #6.7 g hydroxyzine pamoate 25 mg capsule 25 mg PO TID PRN #90 cap 05/30/21 05/31/21 Rx Amlodipine Besylate [Amlodipine 10 mg PO DAILY 06/29/21 History 10mg Tab] Benzonatate [Benzonatate 100mg 100 mg PO Q8H PRN 06/29/21 06/29/21 History cap] Cetirizine HCl 10 mg PO DAILY 06/29/21 06/29/21 History Escitalopram Oxalate 20 mg PO DAILY 06/29/21 06/29/21 History Fluticasone Propionate 1 spray INTRANASAL DAILY 06/29/21 History Oxybutynin Chloride [Oxybutynin 10 mg PO DAILY 06/29/21 06/29/21 History Chloride ER] bisoproloL fumarate [Bisoprolol 5 mg PO DAILY 06/29/21 History Fumarate] buPROPion HCL [Wellbutrin XL] 300 mg PO DAILY 06/29/21 06/29/21 History ondansetron HCL [Ondansetron 4mg 4 mg PO Q8H PRN 06/29/21 06/29/21 History tab*] Allergies Allergy/AdvReac Type Severity Reaction Status Date / Time No Known Allergies Allergy Verified 05/31/21 14:35 Exam - Constitutional Constitutional:: Present: comfortable - HENMT Exam HENMT: Present: normocephalic, atraumatic - Eye Exam Eyes:: Present: normal appearance both eyes and related structures - Neck Exam Neck:: Present: normal visual inspection - Respiratory Exam Respiratory:: Present: able to speak in complete sentences, respiratory distress, crackles. Absent: wheezing - Cardiovascular Exam Cardiac:: Present: S1, S2 - GI Exam GI:: Present: soft - Skin Exam Skin: Present: warm, no rash - Neurological Exam Neurological: Present: alert, awake,
--- NOTE | 2021-06-29 14:48 | HMH.ACPN2 ---
Internal Medicine - PN: Subj *Date: 06/29/21 *Time: 09:13 Interval history: 55-year-old female patient resting in bed quietly with eyes closed, awakens to verbal stimuli. BiPAP intact her current oxygenation is 92%. She reports feeling better this morning and denies any needs. Exam Vital signs and Labs for Last 24 Hours: Temp Pulse Resp BP Pulse Ox 100.2 F H 62 28 H 167/95 H 95 06/28/21 17:18 06/29/21 13:14 06/29/21 13:14 06/29/21 13:14 06/29/21 13:14 Laboratory Results - last 24 hr 06/28/21 17:40: WBC 6.0, RBC 5.59 H, Hgb 15.7, Hct 47.8 H, MCV 85.4, MCH 28.0, MCHC 32.8, RDW 14.8, Plt Count 219, MPV 8.9, Neut % (Auto) 71.1, Lymph % (Auto) 20.8, [place] % (Auto) 6.6, Eos % (Auto) 0.2, Baso % (Auto) 1.3, Neut # (Auto) 4.3, Lymph # (Auto) 1.3, [place] # (Auto) 0.4, Eos # (Auto) 0.0, Baso # (Auto) 0.1 06/28/21 17:40: Sodium 133 L, Potassium 3.6, Chloride 94 L, Carbon Dioxide 29, Anion Gap 13.6, BUN 20 H, Creatinine 0.90, Estimated Creat Clear 60, Estimated GFR 65, Est GFR ( Amer) 78, Glucose 121 H, Calcium 8.3 L, Total Bilirubin 0.8, AST 93 H, ALT 33, Alkaline Phosphatase 90, Troponin I 0.03, NT-Pro-B Natriuret Pep 73.6, Total Protein 6.7, Albumin 3.4 L, Globulin 3.3 H, Albumin/Globulin Ratio 1.0 L 06/28/21 17:40: SARS-CoV-2 (PCR) Detected A, Influenza A Untype (PCR) Not detected, Influenza Type B (PCR) Not detected 06/28/21 18:37: Lactate 1.6 06/28/21 20:34: Troponin I 0.05 H 06/28/21 22:18: POC Glucose 132 H 06/28/21 22:57: Specimen Source Right radial, O2 % 100, ABG pH 7.38, ABG pCO2 34.7 L, ABG pO2 83.7, ABG HCO3 19.9 L, ABG Total CO2 20.9 L, ABG O2 Saturation 96, ABG Base Excess -5.3 L, Reji Test Acceptable 06/28/21 23:19: Troponin I 0.04 H 06/29/21 03:09: POC Glucose 156 H 06/29/21 03:14: WBC 4.4 L D, RBC 4.93, Hgb 14.2, Hct 43.2, MCV 87.7, MCH 28.9, MCHC 32.9, RDW 15.1, Plt Count 193, MPV 9.0, Neut % (Auto) 77.3, Lymph % (Auto) 17.3, [place] % (Auto) 4.4, Eos % (Auto) 0.1, Baso % (Auto) 0.9, Neut # (Auto) 3.4, Lymph # (Auto) 0.8, [place] # (Auto) 0.2, Eos # (Auto) 0.0, Baso # (Auto) 0.0 06/29/21 03:14: Sodium 135 L, Potassium 3.7, Chloride 99, Carbon Dioxide 28, Anion Gap 11.7, BUN 20 H, Creatinine 0.80, Estimated Creat Clear 67, Estimated GFR 74, Est GFR ( Amer) 89, Glucose 175 H D, Calcium 8.0 L, Total Bilirubin 0.6, AST 78 H, ALT 27, Alkaline Phosphatase 76, Total Protein 6.1 L, Albumin 3.0 L D, Globulin 3.1, Albumin/Globulin Ratio 1.0 L I & O for Last 24 hours: Intake & Output 06/26/21 06/27/21 06/28/21 06/29/21 23:59 23:59 23:59 23:59 Output Total 1450 / 1450 Balance -1450 / -1450 Weight 300 lb - Constitutional no acute distress, morbidly obese - *Routine HEENT Exam Head: Present: normocephalic Eye: Present: EOMI ENT: Present: mucous membranes moist - *Routine Neck Exam Present: supple, trachea midline - *Routine Respiratory Exam Present: wheezes, diminished air movement. Absent: accessory muscle use - *Routine Cardiovascular Exam Present: RRR - *Routine Abdominal Exam Present: soft, normoactive bowel sounds. Absent: tenderness, firm - *Routine Extremities Exam Present: clubbing, full ROM, pulses intact. Absent: cyanosis, calf tenderness - *Routine Skin Exam Present: intact, dry, warm. Absent: cyanosis, erythema - *Routine Neurological Exam Present: alert, oriented X3. Absent: motor deficit - Routine Psychiatric Exam Present: normal affect, normal thought process. Absent: auditory hallucinations Assessment and Plan (1) Sinus bradycardia Status: Acute Category: Medical Code(s): R00.1 - Bradycardia, unspecified (2) Elevated troponin Status: Acute Category: Medical Code(s): R77.8 - Other specified abnormalities of plasma proteins (3) Acute respiratory failure due to COVID-19 Status: Acute Category: Medical Code(s): U07.1 - COVID-19; J96.00 - Acute respiratory failure, unspecified whether with hypoxia or hypercapnia (4) Pneumonia due to COVID-
--- NOTE | 2021-06-29 14:57 | PC.NURSE ---
Dopamine drip had been titrated up to 10mcg/kg/min HR 50-57 BP 174/88; Drip titrated back down to 7.5 mg/kg/min
--- NOTE | 2021-06-29 16:06 | PC.NURSE ---
Pt resting. Heart rate remains at 50 with dopamine going at 7.5mcg. No needs at this time.
--- NOTE | 2021-06-29 16:18 | PC.NURSE ---
Dr. Carreno paged
--- NOTE | 2021-06-29 16:25 | PC.NURSE ---
Spoke with Dr. Carreno regarding pt's heart rate and failure with dopamine drip even after multiple attempts to titrate up and down. Dr. Carreno advised at this time to discontinue the dopamine drip and start a dobutamine drip at 5mcg. He advised he wanted the heart rate around 70-100. Also advised to obtaine repeat ABG and to let him know results. Repeated and verified orders with him. Notified pharmacy that we would be discontinuing dopamine and I would be starting a dobutamine drip. Km advised he would get it mixed and bring it down.
[2021-06-29 16:42] LABS: ABG Base Excess -2.9 mmol/L (-2.4-2.3); ABG HCO3 22.4 mmhg (22.0-26.0); ABG Oxygen Saturation 93 % (90-100); ABG PCO2 39.9 mmhg (35.0-45.0); ABG PH 7.37 mmol/L (7.35-7.45); ABG PO2 68.3 mmhg (80-100); ABG TCO2 23.7 mmhg (23-27)
[2021-06-29 16:43] LABS: Allen's Test Acceptable; Oxygen 70 %; Pressure Support 8; Source Right Radial
--- NOTE | 2021-06-29 17:00 | PC.NURSE ---
Spoke with Dr. Carreno who advised to notify of ABG results and let him know that dopamine was stopped and dobutamine was started.
--- NOTE | 2021-06-29 17:08 | PC.NURSE ---
Spoke with Dr. Higginbotham and advised him of ABG results and that we have switched pt from dopamine to dobutamine. Advised him pt mental status was the same as this morning. He advised to continue on the planned course of treatment at this time and gave no new orders.
--- NOTE | 2021-06-29 17:39 | PC.NURSE ---
Called report to Vera Hernandez and notified resp that I was ready to take patient to the floor.
--- NOTE | 2021-06-29 23:19 | PC.NURSE ---
She is A&Ox4. She continues on bipap @ 70% FiO2. She received PRN acetaminophen at the beginning of the shift for a headache. Glucose was 126 at night. She is able to turn herself in bed.
[2021-06-30] VITALS (20 sets, daily range): BP systolic 125–156; BP diastolic 70–86; PULSE 59–90; RESP 2–30; TEMP 36.3–36.9; O2SAT 92–97; BMI 53.4
[2021-06-30 00:12] LABS: POC Glucose,Bedside 126 (70-110)
[2021-06-30 06:12] LABS: Basophils % 0.5 % (0.1-2.0); Hemoglobin 14.5 g/dL (12.2-16.2); Lymphocytes # 0.8 K/mm3 (0.7-4.5); Lymphocytes % 10.6 % (10-50); Mean Corpuscular HGB Conc 32.3 g/dL (31.8-35.4); Mean Corpuscular Hemoglobin 28.4 pg (27.0-31.2); Mean Corpuscular Volume 87.8 fl (81-99); Mean Platelet Volume 8.7 fl (7.4-10.4); Monocytes # 0.4 K/mm3 (0.1-1.0); Monocytes % 5.7 % (1.7-9.3); Neutrophils # 6.2 K/mm3 (1.8-7.8); Platelet Count 222 K/mm3 (142-424); Red Blood Count 5.13 M/mm3 (4.20-5.40); White Blood Count 7.5 K/mm3 (4.8-10.8)
[2021-06-30 06:22] LABS: Alanine Aminotransferase 19 U/L (12-78); Albumin Level 2.8 g/dl (3.5-5.0); Alkaline Phosphatase 67 U/L (38-126); Anion Gap 16.5 mEq/L (5-15); Aspartate Amino Transferase 47 U/L (14-36); Bilirubin,Total 0.5 mg/dl (0.2-1.3); Blood Urea Nitrogen 16 mg/dl (7-17); Calcium 8.2 mg/dl (8.4-10.2); Carbon Dioxide 22 mmol/L (22.0-30.0); Chloride 106 mmol/L (98-107); Creatinine Clearance Estimated 107 mL/min (50-200); Estimated Glomerular Filt Rate 127 ml/min (>60); GFR (African American) 154 ML/MIN (>60); Globulin 2.9 g/dL (1.3-3.2); Glucose 153 mg/dl (74-100); Potassium 3.5 mmoL/L (3.5-5.1); Sodium 141 mmol/L (136-145); Total Protein,Serum 5.7 g/dl (6.3-8.2)
[2021-06-30 06:34] LABS: POC Glucose,Bedside 147 (70-110)
--- NOTE | 2021-06-30 08:23 | P.CONPHA_ITS ---
[facility] Pharmacy VTE Monitoring - Patient Demographics Admission date: 06/28/21 Report Date: 06/30/21 Time: 08:23 Allergies/Adverse Reactions: Patient Allergies No Known Allergies Allergy (Verified 05/31/21 14:35) Height: 1.63 m Weight: 141.884 kg Patient Problems: Current Active Problems Pneumonia due to COVID-19 virus (Acute) Acute respiratory failure with hypoxia (Acute) Elevated troponin (Acute) Acute respiratory failure due to COVID-19 (Acute) Sinus bradycardia (Acute) HTN (hypertension) (Chronic) Morbidly obese (Chronic) - VTE Risk Labs: VTE Related Lab Results Hgb 14.5 g/dL (12.2-16.2) 06/30/21 05:20 Hct 45.0 % (37.0-47.0) 06/30/21 05:20 Plt Count 222 K/mm3 (142-424) 06/30/21 05:20 BUN 16 mg/dl (7-17) 06/30/21 05:20 Creatinine 0.50 mg/dl (0.52-1.04) L D 06/30/21 05:20 Estimated Creat Clear 107 mL/min (50-200) 06/30/21 05:20 VTE Score: 4 VTE Risk Level: Low Risk - Prophylaxis VTE Prophylaxis Ordered?: Yes Types of VTE Prophylaxis: TEDS Knee High, Pharmacological Location of Applied Device: Bilateral Lower Extremeties Pharmacologic Type: Enoxaparin
--- NOTE | 2021-06-30 09:14 | HMH.PULMPN ---
Internal Medicine - PN: Subj *Date: 06/30/21 *Time: 12:42 Interval history: No acute respiratory events overnight. Patient admits improvement in her symptoms. Exam - Constitutional Constitutional:: Present: no acute distress, comfortable - HENMT Exam HENMT: Present: normocephalic, atraumatic - Eye Exam Eyes:: Present: normal appearance both eyes and related structures - Neck Exam Neck:: Present: normal visual inspection - Respiratory Exam Respiratory:: Present: able to speak in complete sentences, respiratory distress, crackles - Cardiovascular Exam Cardiac:: Present: S1, S2 - GI Exam GI:: Present: soft - Skin Exam Skin: Present: warm, no rash - Neurological Exam Neurological: Present: alert, awake, normal cognition - Extremities Exam Extremities: Present: no cyanosis, no clubbing, edema Assessment and Plan (1) Sinus bradycardia Status: Acute Category: Medical Code(s): R00.1 - Bradycardia, unspecified (2) Elevated troponin Status: Acute Category: Medical Code(s): R77.8 - Other specified abnormalities of plasma proteins (3) Acute respiratory failure due to COVID-19 Status: Acute Category: Medical Code(s): U07.1 - COVID-19; J96.00 - Acute respiratory failure, unspecified whether with hypoxia or hypercapnia (4) Pneumonia due to COVID-19 virus Status: Acute Category: Medical Code(s): U07.1 - COVID-19; J12.82 - Pneumonia due to coronavirus disease 2019 (5) Acute respiratory failure with hypoxia Status: Acute Category: Medical Code(s): J96.01 - Acute respiratory failure with hypoxia (6) HTN (hypertension) Status: Chronic Qualifiers: Hypertension type: primary hypertension Qualified Code(s): I10 - Essential (primary) hypertension Category: Medical Code(s): I10 - Essential (primary) hypertension (7) Morbidly obese Status: Chronic Category: Medical Code(s): E66.01 - Morbid (severe) obesity due to excess calories - Assessment and plan all Dx Assessment and Plan for all problems:: #Acute hypoxic respiratory failure: #COVID-19 pneumonia: 55-year-old no significant prior respiratory complaint recent diagnosis of COVID-19 pneumonia presented to the hospital worsening respiratory distress She is using inhaler since her recent episode of pneumonia in May. Positive sick contacts. CTA on admission did not show any pulmonary emboli however showed patchy pulmonary infiltrates and consolidation. Leukopenia noted. Renal function within normal limits. Patient was also found to be bradycardic on presentation for which she was given glucagon initiated and a dopamine drip she is on a beta-tangela at home, was switched to dobutamine, cardiology following Plan: -Continue BiPAP ventilator support to maintain O2 saturation goal of 88 to 92%,FiO2 weaned to 50%, will continue to wean as tolerated to nasal cannula. -Continue DuoNebs every 6 hours scheduled. -Continue remdesivir, Barcitinib and dexamethasone 6mg daily for COVID-19 pneumonia. -Continue ceftriaxone azithromycin for community-acquired pneumonia, will follow with sputum cultures and nasal MRSA PCR #Thank you for involving pulmonary in this patient care. We will continue to follow.
--- NOTE | 2021-06-30 09:38 | HMH.ACPN2 ---
Internal Medicine - PN: Subj *Date: 06/30/21 *Time: 10:16 Interval history: 55-year-old female patient resting in bed quietly with eyes closed, awakens to verbal stimuli. BiPAP intact and oxygen saturations greater than 90%. Patient did have bradycardia yesterday and dobutamine was initiated, heart rate this morning in the 70s Exam Vital signs and Labs for Last 24 Hours: Temp Pulse Resp BP Pulse Ox 97.3 F L 61 19 146/78 H 94 L 06/30/21 07:24 06/30/21 06:17 06/29/21 20:00 06/30/21 06:00 06/30/21 06:00 Laboratory Results - last 24 hr 06/29/21 16:30: Specimen Source Right radial, O2 % 70, ABG pH 7.37, ABG pCO2 39.9, ABG pO2 68.3 L, ABG HCO3 22.4, ABG Total CO2 23.7, ABG O2 Saturation 93, ABG Base Excess -2.9 L, Reji Test Acceptable 06/29/21 20:56: POC Glucose 126 H 06/30/21 05:20: WBC 7.5 D, RBC 5.13, Hgb 14.5, Hct 45.0, MCV 87.8, MCH 28.4, MCHC 32.3, RDW 15.0, Plt Count 222, MPV 8.7, Neut % (Auto) 83.0 H, Lymph % (Auto) 10.6, [place] % (Auto) 5.7, Eos % (Auto) 0.0 L, Baso % (Auto) 0.5, Neut # (Auto) 6.2, Lymph # (Auto) 0.8, [place] # (Auto) 0.4, Eos # (Auto) 0.0, Baso # (Auto) 0.0 06/30/21 05:20: Sodium 141, Potassium 3.5, Chloride 106, Carbon Dioxide 22, Anion Gap 16.5 H, BUN 16, Creatinine 0.50 L D, Estimated Creat Clear 107, Estimated GFR 127, Est GFR ( Amer) 154 D, Glucose 153 H, Calcium 8.2 L, Total Bilirubin 0.5, AST 47 H D, ALT 19 D, Alkaline Phosphatase 67, Total Protein 5.7 L, Albumin 2.8 L, Globulin 2.9, Albumin/Globulin Ratio 1.0 L 06/30/21 05:31: POC Glucose 147 H I & O for Last 24 hours: Intake & Output 06/27/21 06/28/21 06/29/21 06/30/21 23:59 23:59 23:59 23:59 Intake Total 1279 / 1279 Output Total 1450 / 2150 1000 / 1000 Balance -1450 / -2150 279 / 279 Weight 300 lb 312 lb 12.8 oz - Constitutional no acute distress, morbidly obese - *Routine HEENT Exam Head: Present: normocephalic Eye: Present: EOMI ENT: Present: mucous membranes moist - *Routine Neck Exam Present: trachea midline. Absent: tracheal deviation - *Routine Respiratory Exam Present: crackles. Absent: accessory muscle use - *Routine Cardiovascular Exam Present: RRR - *Routine Abdominal Exam Present: soft, normoactive bowel sounds. Absent: tenderness - *Routine Extremities Exam Present: full ROM. Absent: cyanosis, clubbing - *Routine Skin Exam Present: intact, warm. Absent: cyanosis, erythema - *Routine Neurological Exam Present: alert, oriented X3. Absent: altered mental status - Routine Psychiatric Exam Present: normal affect, normal thought process. Absent: auditory hallucinations Assessment and Plan (1) Sinus bradycardia Status: Acute Category: Medical Code(s): R00.1 - Bradycardia, unspecified (2) Elevated troponin Status: Acute Category: Medical Code(s): R77.8 - Other specified abnormalities of plasma proteins (3) Acute respiratory failure due to COVID-19 Status: Acute Category: Medical Code(s): U07.1 - COVID-19; J96.00 - Acute respiratory failure, unspecified whether with hypoxia or hypercapnia (4) Pneumonia due to COVID-19 virus Status: Acute Category: Medical Code(s): U07.1 - COVID-19; J12.82 - Pneumonia due to coronavirus disease 2019 (5) Acute respiratory failure with hypoxia Status: Acute Category: Medical Code(s): J96.01 - Acute respiratory failure with hypoxia (6) HTN (hypertension) Status: Chronic Qualifiers: Hypertension type: primary hypertension Qualified Code(s): I10 - Essential (primary) hypertension Category: Medical Code(s): I10 - Essential (primary) hypertension (7) Morbidly obese Status: Chronic Category: Medical Code(s): E66.01 - Morbid (severe) obesity due to excess calories - Assessment and plan all Dx Assessment and Plan for all problems:: Rounded with Dr. Livingston, all orders per Dr. Livingston: 1. Wean O2 as tolerated 2. Pulmonology following 3. Cardiology following
--- NOTE | 2021-06-30 10:38 | HMH.PNCARD ---
Subjective Date: 06/30/21 Time: 10:15 Principal diagnosis: Covid- 19, bradycardia Interval history: This is a 55-year-old female who presented to the emergency department with complaints of shortness of breath and was in acute respiratory failure secondary to COVID-19. The patient is still currently on BiPAP and tolerating this well. Her oxygen saturations are around 93% while I am in the room today. The patient did get bradycardic and was initially started on a dopamine drip yesterday but because of hypertension and continued bradycardia the dopamine drip was stopped and she was switched over to a dobutamine drip. She remains on a dobutamine drip this morning with a heart rate in the 80s. She denies any chest pain or pressure. She denies any lower extremity edema. She denies any fever, chills, nausea, vomiting or diarrhea. She states that she is still really short of breath but she is feeling much better than she was when she came into the hospital. She states that she did sleep well. She is complaining of profound fatigue and just not having any energy to even stay awake. Exam Vital signs and Labs for Last 24 Hours: Temp Pulse Resp BP Pulse Ox 97.3 F L 61 19 146/78 H 94 L 06/30/21 07:24 06/30/21 06:17 06/29/21 20:00 06/30/21 06:00 06/30/21 06:00 Laboratory Results - last 24 hr 06/29/21 16:30: Specimen Source Right radial, O2 % 70, ABG pH 7.37, ABG pCO2 39.9, ABG pO2 68.3 L, ABG HCO3 22.4, ABG Total CO2 23.7, ABG O2 Saturation 93, ABG Base Excess -2.9 L, Reji Test Acceptable 06/29/21 20:56: POC Glucose 126 H 06/30/21 05:20: WBC 7.5 D, RBC 5.13, Hgb 14.5, Hct 45.0, MCV 87.8, MCH 28.4, MCHC 32.3, RDW 15.0, Plt Count 222, MPV 8.7, Neut % (Auto) 83.0 H, Lymph % (Auto) 10.6, [place] % (Auto) 5.7, Eos % (Auto) 0.0 L, Baso % (Auto) 0.5, Neut # (Auto) 6.2, Lymph # (Auto) 0.8, [place] # (Auto) 0.4, Eos # (Auto) 0.0, Baso # (Auto) 0.0 06/30/21 05:20: Sodium 141, Potassium 3.5, Chloride 106, Carbon Dioxide 22, Anion Gap 16.5 H, BUN 16, Creatinine 0.50 L D, Estimated Creat Clear 107, Estimated GFR 127, Est GFR ( Amer) 154 D, Glucose 153 H, Calcium 8.2 L, Total Bilirubin 0.5, AST 47 H D, ALT 19 D, Alkaline Phosphatase 67, Total Protein 5.7 L, Albumin 2.8 L, Globulin 2.9, Albumin/Globulin Ratio 1.0 L 06/30/21 05:31: POC Glucose 147 H I & O for Last 24 hours: Intake & Output 06/27/21 06/28/21 06/29/21 06/30/21 23:59 23:59 23:59 23:59 Intake Total 1279 / 1279 Output Total 1450 / 2150 1000 / 1000 Balance -1450 / -2150 279 / 279 Weight 300 lb 312 lb 12.8 oz Narrative: Telemetry strip is sinus rhythm with a rate in the 80s. echo shows: 1. Mild biatrial alignment, normal left ventricular size, mild concentric left ventricular hypertrophy, visually estimated ejection fraction 55% with no regional wall motion abnormality, grade 1 diastolic dysfunction seen without tissue Doppler evidence of raise left atrial pressure. 2. Mildly enlarged right ventricle with normal contractility. 3. Mild aortic, mild mitral and tricuspid regurgitation. Calculated right ventricular systolic pressure 37 mmHg. 4. No significant pericardial effusion noted. - Constitutional no acute distress, morbidly obese - *Routine HEENT Exam Head: Present: normocephalic, atraumatic Eye: Present: EOMI, PERRL ENT: Present: mucous membranes moist - *Routine Neck Exam Present: supple, full ROM, normal carotid upstroke. Absent: JVD, carotid bruit, lymphadenopathy - *Routine Respiratory Exam Present: decreased breath sounds, wheezes - *Routine Cardiovascular Exam Present: RRR, Normal S1, Normal S2. Absent: murmur - *Routine Abdominal Exam Present: soft, normoactive bowel sounds. Absent: tenderness, distended - *Routine Extremities Exam Present: full ROM, pulses intact, normal capillary refill. Absent: cyanosis, clubbing, edema - *Routine Skin Exam Present: intact, warm. Absent: erythema, rash - *Routine Neurological Exam
[2021-06-30 11:29] LABS: POC Glucose,Bedside 133 (70-110)
[2021-06-30 16:44] LABS: POC Glucose,Bedside 151 (70-110)
--- NOTE | 2021-06-30 18:29 | PC.NURSE ---
1700- Dobutamine titrated to 3mcg 1815- Dobutamine titrated to 2mcg
[2021-06-30 22:00] LABS: POC Glucose,Bedside 169 (70-110)
[2021-07-01] VITALS (14 sets, daily range): BP systolic 125–173; BP diastolic 68–89; PULSE 56–83; RESP 5–30; TEMP 36.2–36.7; O2SAT 87–96; BMI 53.9
[2021-07-01 05:32] LABS: POC Glucose,Bedside 145 (70-110)
--- NOTE | 2021-07-01 07:05 | PC.NURSE ---
Pt has remained on dobutamine gtt this shift. Pt has tolerated well . VSS at this time. Pt has been on Bipap t/o night. SHe is currently on 6L NC while eating breakfast. No complaints voiced. Medication administered per dec. Will continue to monitor.
--- NOTE | 2021-07-01 09:54 | HMH.ACPN2 ---
Internal Medicine - PN: Subj *Date: 07/01/21 *Time: 09:57 Interval history: Patient looks much brighter today. He is sitting upright in the bed using nasal cannula. She has been off and on BiPAP. She is maintaining decent saturations. Dobutamine continues at 2-3 mics. She has been more hemodynamically stable. She is awake alert lucid and in good spirits this morning. Exam Vital signs and Labs for Last 24 Hours: Temp Pulse Resp BP Pulse Ox 97.1 F L 70 30 H 131/84 96 07/01/21 04:00 07/01/21 07:30 07/01/21 06:00 07/01/21 06:00 07/01/21 07:30 Laboratory Results - last 24 hr 06/30/21 11:21: POC Glucose 133 H 06/30/21 16:32: POC Glucose 151 H 06/30/21 20:36: POC Glucose 169 H 07/01/21 05:09: POC Glucose 145 H I & O for Last 24 hours: Intake & Output 06/28/21 06/29/21 06/30/21 07/01/21 23:59 23:59 23:59 23:59 Intake Total 1639 / 1639 1178 / 1178 Output Total 1450 / 2150 1650 / 1650 500 / 500 Balance -1450 / -2150 -11 / -11 678 / 678 Weight 300 lb 312 lb 12.811 oz 316 lb 1 oz - Constitutional no acute distress, obese, cooperative - *Routine HEENT Exam Head: Present: normocephalic Eye: Present: EOMI, PERRL ENT: Present: mucous membranes moist - *Routine Neck Exam Present: supple. Absent: lymphadenopathy - *Routine Respiratory Exam Present: rhonchi, crackles. Absent: accessory muscle use, respiratory distress - *Routine Cardiovascular Exam Present: RRR - *Routine Abdominal Exam Present: soft, normoactive bowel sounds. Absent: tenderness - *Routine Extremities Exam Absent: cyanosis, clubbing, edema - *Routine Skin Exam Present: warm. Absent: rash - *Routine Neurological Exam Present: alert, oriented X3 Assessment and Plan (1) Sinus bradycardia Status: Acute Category: Medical Code(s): R00.1 - Bradycardia, unspecified (2) Elevated troponin Status: Acute Category: Medical Code(s): R77.8 - Other specified abnormalities of plasma proteins (3) Acute respiratory failure due to COVID-19 Status: Acute Category: Medical Code(s): U07.1 - COVID-19; J96.00 - Acute respiratory failure, unspecified whether with hypoxia or hypercapnia (4) Pneumonia due to COVID-19 virus Status: Acute Category: Medical Code(s): U07.1 - COVID-19; J12.82 - Pneumonia due to coronavirus disease 2019 (5) Acute respiratory failure with hypoxia Status: Acute Category: Medical Code(s): J96.01 - Acute respiratory failure with hypoxia (6) HTN (hypertension) Status: Chronic Qualifiers: Hypertension type: primary hypertension Qualified Code(s): I10 - Essential (primary) hypertension Category: Medical Code(s): I10 - Essential (primary) hypertension (7) Morbidly obese Status: Chronic Category: Medical Code(s): E66.01 - Morbid (severe) obesity due to excess calories - Assessment and plan all Dx Assessment and Plan for all problems:: Echo is reviewed. CTA is reviewed. No evidence of pulmonary emboli, scattered airspace disease.
--- NOTE | 2021-07-01 17:40 | PC.NURSE ---
Pt is alert and oriented x4. Lungs are diminished t/o. She is currently on 6L NC w/O2 sats running 93% or >. She has been NSR/SA on telemetry. She has ambulated to the bathroom w/assist x1. She has had 1 large bm this shift. Her keller is to bedside draining straw colored urine. She denies any complaints.
--- NOTE | 2021-07-01 18:21 | PC.NURSE ---
Per Dr Adamson dobutamine gtt can be stopped and patient can be removed from stepdown. If patients HR goes down to 45 bpm or less for 15 minutes or longer then patient needs to be placed back on dobutamine gtt and into stepdown.
[2021-07-02] VITALS (11 sets, daily range): BP systolic 117–146; BP diastolic 61–85; PULSE 50–89; RESP 18–22; TEMP 36.3–36.7; O2SAT 87–97; BMI 54.8
[2021-07-02 01:18] LABS: POC Glucose,Bedside 151 (70-110)
[2021-07-02 01:21] LABS: POC Glucose,Bedside 157 (70-110)
[2021-07-02 05:21] LABS: POC Glucose,Bedside 109 (70-110)
[2021-07-02 07:45] LABS: Basophils # 0.1 K/mm3 (0-0.2); Basophils % 0.8 % (0.1-2.0); Eosinophils % 0.1 % (0.1-12.0); Hematocrit 42.2 % (37.0-47.0); Hemoglobin 13.5 g/dL (12.2-16.2); Lymphocytes % 15.3 % (10-50); Mean Corpuscular Hemoglobin 27.7 pg (27.0-31.2); Mean Corpuscular Volume 86.5 fl (81-99); Mean Platelet Volume 8.4 fl (7.4-10.4); Monocytes # 0.4 K/mm3 (0.1-1.0); Monocytes % 6.3 % (1.7-9.3); Neutrophils # 5.1 K/mm3 (1.8-7.8); Neutrophils % 77.6 % (37.0-80.0); Platelet Count 264 K/mm3 (142-424); Red Blood Count 4.87 M/mm3 (4.20-5.40); Red Cell Distribution Width 15.1 % (11.5-17.5); White Blood Count 6.5 K/mm3 (4.8-10.8)
[2021-07-02 07:56] LABS: Alanine Aminotransferase 20 U/L (12-78); Albumin Level 2.5 g/dl (3.5-5.0); Albumin/Globulin Ratio 0.9 (1.1-1.8); Alkaline Phosphatase 62 U/L (38-126); Anion Gap 8.9 mEq/L (5-15); Aspartate Amino Transferase 49 U/L (14-36); Bilirubin,Total 0.5 mg/dl (0.2-1.3); Blood Urea Nitrogen 14 mg/dl (7-17); Carbon Dioxide 30 mmol/L (22.0-30.0); Chloride 110 mmol/L (98-107); Creatinine Clearance Estimated 89 mL/min (50-200); Estimated Glomerular Filt Rate 103 ml/min (>60); GFR (African American) 125 ML/MIN (>60); Globulin 2.8 g/dL (1.3-3.2); Glucose 101 mg/dl (74-100); Sodium 146 mmol/L (136-145); Total Protein,Serum 5.3 g/dl (6.3-8.2)
[2021-07-02 08:13] LABS: Potassium 2.9 mmoL/L (3.5-5.1)
--- NOTE | 2021-07-02 10:06 | HMH.ACPN2 ---
Internal Medicine - PN: Subj *Date: 07/02/21 *Time: 10:06 Interval history: Overall patient looks much improved. Exam Vital signs and Labs for Last 24 Hours: Temp Pulse Resp BP Pulse Ox 97.4 F L 77 18 135/75 87 L 07/02/21 04:00 07/02/21 04:00 07/02/21 04:00 07/02/21 04:00 07/02/21 04:00 Laboratory Results - last 24 hr 07/01/21 11:27: POC Glucose 151 H 07/01/21 21:22: POC Glucose 157 H 07/02/21 05:11: POC Glucose 109 07/02/21 06:40: WBC 6.5, RBC 4.87, Hgb 13.5, Hct 42.2, MCV 86.5, MCH 27.7, MCHC 32.0, RDW 15.1, Plt Count 264, MPV 8.4, Neut % (Auto) 77.6, Lymph % (Auto) 15.3, [place] % (Auto) 6.3, Eos % (Auto) 0.1, Baso % (Auto) 0.8, Neut # (Auto) 5.1, Lymph # (Auto) 1.0, [place] # (Auto) 0.4, Eos # (Auto) 0.0, Baso # (Auto) 0.1 07/02/21 06:40: Sodium 146 H, Potassium 2.9 L*, Chloride 110 H, Carbon Dioxide 30, Anion Gap 8.9, BUN 14, Creatinine 0.60, Estimated Creat Clear 89, Estimated GFR 103, Est GFR ( Amer) 125, Glucose 101 H, Calcium 8.0 L, Total Bilirubin 0.5, AST 49 H, ALT 20, Alkaline Phosphatase 62, Total Protein 5.3 L, Albumin 2.5 L, Globulin 2.8, Albumin/Globulin Ratio 0.9 L I & O for Last 24 hours: Intake & Output 06/29/21 06/30/21 07/01/21 07/02/21 23:59 23:59 23:59 23:59 Intake Total 1639 / 1639 2857 / 2857 Output Total 1450 / 2150 1650 / 1650 1200 / 1200 450 / 450 Balance -1450 / -2150 -11 / -11 1657 / 1657 -450 / -450 Weight 312 lb 12.811 oz 316 lb 1 oz 321 lb Microbiology Reports for the Last 24 Hours: Microbiology 06/30/21 17:37 Nose - Nasal MRSA Culture - Final Negative - Constitutional no acute distress, obese, cooperative - *Routine HEENT Exam Head: Present: normocephalic Eye: Present: EOMI, PERRL ENT: Present: mucous membranes moist - *Routine Neck Exam Present: supple. Absent: lymphadenopathy - *Routine Respiratory Exam Present: rhonchi, crackles. Absent: respiratory distress - *Routine Cardiovascular Exam Present: RRR - *Routine Abdominal Exam Present: soft, normoactive bowel sounds. Absent: tenderness - *Routine Extremities Exam Absent: cyanosis, clubbing, edema - *Routine Skin Exam Present: warm. Absent: rash - *Routine Neurological Exam Present: alert, oriented X3 Assessment and Plan (1) Sinus bradycardia Status: Acute Category: Medical Code(s): R00.1 - Bradycardia, unspecified (2) Elevated troponin Status: Acute Category: Medical Code(s): R77.8 - Other specified abnormalities of plasma proteins (3) Acute respiratory failure due to COVID-19 Status: Acute Category: Medical Code(s): U07.1 - COVID-19; J96.00 - Acute respiratory failure, unspecified whether with hypoxia or hypercapnia (4) Pneumonia due to COVID-19 virus Status: Acute Category: Medical Code(s): U07.1 - COVID-19; J12.82 - Pneumonia due to coronavirus disease 2019 (5) Acute respiratory failure with hypoxia Status: Acute Category: Medical Code(s): J96.01 - Acute respiratory failure with hypoxia (6) HTN (hypertension) Status: Chronic Qualifiers: Hypertension type: primary hypertension Qualified Code(s): I10 - Essential (primary) hypertension Category: Medical Code(s): I10 - Essential (primary) hypertension (7) Morbidly obese Status: Chronic Category: Medical Code(s): E66.01 - Morbid (severe) obesity due to excess calories - Assessment and plan all Dx Assessment and Plan for all problems:: Patient is off of the dobutamine, and move out of stepdown status. Will reduce her IV fluids, give 40 of Lasix IV this morning. Placing her potassium. Continue current regimen
[2021-07-02 11:14] LABS: POC Glucose,Bedside 125 (70-110)
[2021-07-02 16:38] LABS: POC Glucose,Bedside 195 (70-110)
[2021-07-03] VITALS (10 sets, daily range): BP systolic 116–162; BP diastolic 71–92; PULSE 60–86; RESP 20–24; TEMP 36.4–36.8; O2SAT 87–95; BMI 54.3
[2021-07-03 01:41] LABS: POC Glucose,Bedside 176 (70-110)
[2021-07-03 04:43] LABS: POC Glucose,Bedside 108 (70-110)
--- NOTE | 2021-07-03 06:00 | XR_ITS ---
PROCEDURE INFORMATION: Exam: XR Chest Exam date and time: 07/03/2021 6:00 AM Age: 55 years old Clinical indication: Shortness of breath and other: Covid TECHNIQUE: Imaging protocol: XR of the chest. Views: 1 view. COMPARISON: CR XR CHEST PORTABLE 06/28/2021 6:15 PM FINDINGS: Lungs: Some patchy bilateral left greater than right airspace disease is noted. Pleural spaces: Unremarkable. No pleural effusion. No pneumothorax. Heart/Mediastinum: The heart is enlarged. Bones/joints: Unremarkable. IMPRESSION: Cardiomegaly with bilateral infiltrates increased since prior.
[2021-07-03 06:08] LABS: Basophils # 0.1 K/mm3 (0-0.2); Eosinophils % 0.3 % (0.1-12.0); Hemoglobin 12.7 g/dL (12.2-16.2); Mean Corpuscular HGB Conc 32.6 g/dL (31.8-35.4); Mean Corpuscular Hemoglobin 28.4 pg (27.0-31.2); Mean Corpuscular Volume 87.1 fl (81-99); Monocytes # 0.5 K/mm3 (0.1-1.0); Neutrophils # 5.5 K/mm3 (1.8-7.8); Neutrophils % 77.7 % (37.0-80.0); Platelet Count 268 K/mm3 (142-424); Red Blood Count 4.48 M/mm3 (4.20-5.40); Red Cell Distribution Width 15.2 % (11.5-17.5)
[2021-07-03 06:27] LABS: Alanine Aminotransferase 37 U/L (12-78); Albumin Level 2.5 g/dl (3.5-5.0); Alkaline Phosphatase 63 U/L (38-126); Anion Gap 7.2 mEq/L (5-15); Aspartate Amino Transferase 89 U/L (14-36); Bilirubin,Total 0.4 mg/dl (0.2-1.3); Blood Urea Nitrogen 12 mg/dl (7-17); Calcium 7.7 mg/dl (8.4-10.2); Carbon Dioxide 31 mmol/L (22.0-30.0); Chloride 108 mmol/L (98-107); Creatinine Clearance Estimated 89 mL/min (50-200); Estimated Glomerular Filt Rate 103 ml/min (>60); GFR (African American) 125 ML/MIN (>60); Globulin 2.6 g/dL (1.3-3.2); Glucose 99 mg/dl (74-100); Potassium 3.2 mmoL/L (3.5-5.1); Sodium 143 mmol/L (136-145); Total Protein,Serum 5.1 g/dl (6.3-8.2)
--- NOTE | 2021-07-03 06:53 | PC.NURSE ---
Patient has had an uneventful night this shift; remains on 5L NC with O2 sats >90. No s/s of acute distress noted, call light within reach, bed at lowest level for safety; will continue to monitor.
[2021-07-03 12:06] LABS: POC Glucose,Bedside 116 (70-110)
--- NOTE | 2021-07-03 12:28 | P.PN_ITS ---
Internal Medicine - PN: Subj *Date: 07/03/21 *Time: 12:28 Exam Vital signs and Labs for Last 24 Hours: Temp Pulse Resp BP Pulse Ox 98.2 F 86 22 128/83 87 L 07/03/21 08:00 07/03/21 08:00 07/03/21 08:00 07/03/21 08:00 07/03/21 08:00 Laboratory Results - last 24 hr 07/02/21 16:27: POC Glucose 195 H 07/02/21 21:31: POC Glucose 176 H 07/03/21 04:36: POC Glucose 108 07/03/21 05:26: WBC 7.0, RBC 4.48, Hgb 12.7, Hct 39.0, MCV 87.1, MCH 28.4, MCHC 32.6, RDW 15.2, Plt Count 268, MPV 8.0, Neut % (Auto) 77.7, Lymph % (Auto) 14.0, [place] % (Auto) 7.0, Eos % (Auto) 0.3, Baso % (Auto) 1.0, Neut # (Auto) 5.5, Lymph # (Auto) 1.0, [place] # (Auto) 0.5, Eos # (Auto) 0.0, Baso # (Auto) 0.1 07/03/21 05:26: Sodium 143, Potassium 3.2 L, Chloride 108 H, Carbon Dioxide 31 H , Anion Gap 7.2, BUN 12, Creatinine 0.60, Estimated Creat Clear 89, Estimated GFR 103, Est GFR ( Amer) 125, Glucose 99, Calcium 7.7 L, Total Bilirubin 0.4, AST 89 H D, ALT 37 D, Alkaline Phosphatase 63, Total Protein 5.1 L, [place] min 2.5 L, Globulin 2.6, Albumin/Globulin Ratio 1.0 L 07/03/21 11:35: POC Glucose 116 H I & O for Last 24 hours: Intake & Output 06/30/21 07/01/21 07/02/21 07/03/21 23:59 23:59 23:59 23:59 Intake Total 1639 / 1639 2857 / 2857 720 / 720 480 / 480 Output Total 1650 / 1650 1200 / 1200 2750 / 2750 325 / 325 Balance -11 / -11 165 / 1657 -2029 / 155 / 155 Weight 141.884 kg 143.364 kg 145.603 kg 144.242 kg Microbiology Reports for the Last 24 Hours: Microbiology 06/30/21 17:37 Nose - Nasal MRSA Culture - Final Negative Assessment and Plan (1) Sinus bradycardia Status: Acute Category: Medical Code(s): R00.1 - Bradycardia, unspecified (2) Elevated troponin Status: Acute Category: Medical Code(s): R77.8 - Other specified abnormalities of plasma proteins (3) Acute respiratory failure due to COVID-19 Status: Acute Category: Medical Code(s): U07.1 - COVID-19; J96.00 - Acute respiratory failure, unspecified whether with hypoxia or hypercapnia (4) Pneumonia due to COVID-19 virus Status: Acute Category: Medical Code(s): U07.1 - COVID-19; J12.82 - Pneumonia due to coronavirus disease 2019 (5) Acute respiratory failure with hypoxia Status: Acute Category: Medical Code(s): J96.01 - Acute respiratory failure with hypoxia (6) HTN (hypertension) Status: Chronic Qualifiers: Hypertension type: primary hypertension Qualified Code(s): I10 - Essential (primary) hypertension Category: Medical Code(s): I10 - Essential (primary) hypertension (7) Morbidly obese Status: Chronic Category: Medical Code(s): E66.01 - Morbid (severe) obesity due to excess calories The patient's infection will respond to the chosen ABx?: Yes Is the patient receiving the right drug, dose, and route?: Yes Could a more targeted ABx be ordered?: No (SPUTUM NOT COLLECTED YET)
--- NOTE | 2021-07-03 12:53 | HMH.ACPN2 ---
Internal Medicine - PN: Subj *Date: 07/03/21 *Time: 13:00 Interval history: continues to improve clinically alert/lucid off dobutamine stable cv maintaining decent sats on n/c cxr revd cardiomegaly and slight increase in infiltrates will stop ivf and diurese azith/rocephin remain on board Exam Vital signs and Labs for Last 24 Hours: Temp Pulse Resp BP Pulse Ox 98.2 F 86 22 128/83 87 L 07/03/21 08:00 07/03/21 08:00 07/03/21 08:00 07/03/21 08:00 07/03/21 08:00 Laboratory Results - last 24 hr 07/02/21 16:27: POC Glucose 195 H 07/02/21 21:31: POC Glucose 176 H 07/03/21 04:36: POC Glucose 108 07/03/21 05:26: WBC 7.0, RBC 4.48, Hgb 12.7, Hct 39.0, MCV 87.1, MCH 28.4, MCHC 32.6, RDW 15.2, Plt Count 268, MPV 8.0, Neut % (Auto) 77.7, Lymph % (Auto) 14.0, [place] % (Auto) 7.0, Eos % (Auto) 0.3, Baso % (Auto) 1.0, Neut # (Auto) 5.5, Lymph # (Auto) 1.0, [place] # (Auto) 0.5, Eos # (Auto) 0.0, Baso # (Auto) 0.1 07/03/21 05:26: Sodium 143, Potassium 3.2 L, Chloride 108 H, Carbon Dioxide 31 H, Anion Gap 7.2, BUN 12, Creatinine 0.60, Estimated Creat Clear 89, Estimated GFR 103, Est GFR ( Amer) 125, Glucose 99, Calcium 7.7 L, Total Bilirubin 0.4, AST 89 H D, ALT 37 D, Alkaline Phosphatase 63, Total Protein 5.1 L, Albumin 2.5 L, Globulin 2.6, Albumin/Globulin Ratio 1.0 L 07/03/21 11:35: POC Glucose 116 H I & O for Last 24 hours: Intake & Output 06/30/21 07/01/21 07/02/21 07/03/21 23:59 23:59 23:59 23:59 Intake Total 1639 / 1639 2857 / 2857 720 / 720 480 / 480 Output Total 1650 / 1650 1200 / 1200 2750 / 2750 325 / 325 Balance -11 / -1656 / 1656 -2029 / 155 / 155 Weight 312 lb 12.811 oz 316 lb 1 oz 321 lb 318 lb - Constitutional no acute distress, morbidly obese, cooperative - *Routine HEENT Exam Head: Present: normocephalic Eye: Present: EOMI, PERRL ENT: Present: mucous membranes moist - *Routine Neck Exam Present: supple. Absent: lymphadenopathy - *Routine Respiratory Exam Present: rhonchi, crackles. Absent: accessory muscle use, respiratory distress - *Routine Cardiovascular Exam Present: RRR - *Routine Abdominal Exam Present: soft, normoactive bowel sounds. Absent: tenderness - *Routine Extremities Exam Absent: cyanosis, clubbing, edema - *Routine Skin Exam Present: warm. Absent: rash - *Routine Neurological Exam Present: alert, oriented X3 Assessment and Plan (1) Sinus bradycardia Status: Acute Category: Medical Code(s): R00.1 - Bradycardia, unspecified (2) Elevated troponin Status: Acute Category: Medical Code(s): R77.8 - Other specified abnormalities of plasma proteins (3) Acute respiratory failure due to COVID-19 Status: Acute Category: Medical Code(s): U07.1 - COVID-19; J96.00 - Acute respiratory failure, unspecified whether with hypoxia or hypercapnia (4) Pneumonia due to COVID-19 virus Status: Acute Category: Medical Code(s): U07.1 - COVID-19; J12.82 - Pneumonia due to coronavirus disease 2019 (5) Acute respiratory failure with hypoxia Status: Acute Category: Medical Code(s): J96.01 - Acute respiratory failure with hypoxia (6) HTN (hypertension) Status: Chronic Qualifiers: Hypertension type: primary hypertension Qualified Code(s): I10 - Essential (primary) hypertension Category: Medical Code(s): I10 - Essential (primary) hypertension (7) Morbidly obese Status: Chronic Category: Medical Code(s): E66.01 - Morbid (severe) obesity due to excess calories - Assessment and plan all Dx Assessment and Plan for all problems:: will offer lasix and follow volume status closely see orders
--- NOTE | 2021-07-03 13:20 | DIET.NUTRFU ---
Addendum entered by Chen Sears 07/05/21 11:46: PO intakes 75%, BG moderate- avg. 150. Original Note: PO intakes 65%, pt currently on ADA diet dt elevated BG- avg. 160. No changes diet at this time, continuing to monitor.
--- NOTE | 2021-07-03 14:26 | HMH.PULMPN ---
Internal Medicine - PN: Subj *Date: 07/03/21 *Time: 14:26 Interval history: No acute respite events over the weekend. Patient admits significant improvement in her symptoms, weaned to nasal cannula. Exam - Constitutional Constitutional:: Present: no acute distress, comfortable - HENMT Exam HENMT: Present: normocephalic, atraumatic - Eye Exam Eyes:: Present: normal appearance both eyes and related structures - Neck Exam Neck:: Present: normal visual inspection - Respiratory Exam Respiratory:: Present: able to speak in complete sentences, no respiratory distress. Absent: wheezing - Cardiovascular Exam Cardiac:: Present: S1, S2 - GI Exam GI:: Present: soft - Skin Exam Skin: Present: warm, no rash - Neurological Exam Neurological: Present: alert, awake, normal cognition - Extremities Exam Extremities: Present: no cyanosis, no clubbing Assessment and Plan (1) Sinus bradycardia Status: Acute Category: Medical Code(s): R00.1 - Bradycardia, unspecified (2) Elevated troponin Status: Acute Category: Medical Code(s): R77.8 - Other specified abnormalities of plasma proteins (3) Acute respiratory failure due to COVID-19 Status: Acute Category: Medical Code(s): U07.1 - COVID-19; J96.00 - Acute respiratory failure, unspecified whether with hypoxia or hypercapnia (4) Pneumonia due to COVID-19 virus Status: Acute Category: Medical Code(s): U07.1 - COVID-19; J12.82 - Pneumonia due to coronavirus disease 2019 (5) Acute respiratory failure with hypoxia Status: Acute Category: Medical Code(s): J96.01 - Acute respiratory failure with hypoxia (6) HTN (hypertension) Status: Chronic Qualifiers: Hypertension type: primary hypertension Qualified Code(s): I10 - Essential (primary) hypertension Category: Medical Code(s): I10 - Essential (primary) hypertension (7) Morbidly obese Status: Chronic Category: Medical Code(s): E66.01 - Morbid (severe) obesity due to excess calories - Assessment and plan all Dx Assessment and Plan for all problems:: #Acute hypoxic respiratory failure: #COVID-19 pneumonia: 55-year-old no significant prior respiratory complaint recent diagnosis of COVID-19 pneumonia presented to the hospital worsening respiratory distress She is using inhaler since her recent episode of pneumonia in May. Positive sick contacts. CTA on admission did not show any pulmonary emboli however showed patchy pulmonary infiltrates and consolidation. Leukopenia noted. Renal function within normal limits. Patient was needing noninvasive ventilator support BiPAP at admission to maintain her oxygen saturations, her respiratory status significantly improved eventually weaned to nasal cannula 4 L this morning with saturations maintained at 92% above. Patient also admits significant improvement in her symptoms. Plan: -Continue nasal oxygen supplementation to maintain O2 saturation goal of 80 to 92%, patient will need home oxygen therapy on discharge. Please coordinate. -Combivent every 6 hours as needed -Continue remdesivir, until discharge, and continue dexamethasone 6 mg daily for 10 days on broad-spectrum for 14 days -Continue ceftriaxone azithromycin for community-acquired pneumonia, nasal MRSA PCR negative, will wean to levofloxacin to complete a total of 5-day course on discharge. #Thank you for involving pulmonary in this patient care. We will continue to follow.
--- NOTE | 2021-07-03 16:06 | PC.NURSE ---
PT IS SITTING UP IN THE CHAIR. NO COMPLAINTS OF PAIN OR SOA. O2 SATURATION HAS MAINTAINED 90-95% ON 5 L NC. LUNG SOUNDS DIMINISHED WITH SCATTERED RHONCHI. ABDOMEN SOFT/NON TENDER WITH ACTIVE BOWEL SOUNDS. EATING AND DRINKING WELL. VSS. WILL CONTINUE TO MONITOR.
[2021-07-03 17:20] LABS: POC Glucose,Bedside 196 (70-110)
[2021-07-03 21:27] LABS: POC Glucose,Bedside 124 (70-110)
[2021-07-04] VITALS (8 sets, daily range): BP systolic 104–153; BP diastolic 65–86; PULSE 60–100; RESP 17–20; TEMP 36.3–36.6; O2SAT 90–96; BMI 54.3
--- NOTE | 2021-07-04 04:55 | PC.NURSE ---
Patient is alert and oriented x4. She remains on 4LNC, lung sounds are diminished throughout, left side is noted to have expiratory rhonchi. She has rested comfortably this shift. Call light within reach, VSS, will continue to monitor.
[2021-07-04 05:48] LABS: POC Glucose,Bedside 98 (70-110)
--- NOTE | 2021-07-04 09:29 | HMH.ACPN2 ---
Internal Medicine - PN: Subj *Date: 07/04/21 *Time: 19:51 Interval history: Patient continues to relay improvement. She looks much brighter today. Is up in the chair. She is maintaining decent saturations and has been without respiratory distress. Exam Vital signs and Labs for Last 24 Hours: Temp Pulse Resp BP Pulse Ox 97.5 F L 69 20 104/72 L 93 L 07/04/21 08:00 07/04/21 08:00 07/04/21 08:00 07/04/21 08:00 07/04/21 08:00 Laboratory Results - last 24 hr 07/03/21 11:35: POC Glucose 116 H 07/03/21 16:58: POC Glucose 196 H 07/03/21 20:56: POC Glucose 124 H 07/04/21 05:25: POC Glucose 98 I & O for Last 24 hours: Intake & Output 07/01/21 07/02/21 07/03/21 07/04/21 23:59 23:59 23:59 23:59 Intake Total 2857 / 2857 720 / 720 840 / 840 240 / 240 Output Total 1200 / 1200 2750 / 2750 325 / 325 Balance 1657 / 1657 -2030 / -2030 515 / 515 240 / 240 Weight 316 lb 1 oz 321 lb 318 lb 317 lb 15.987 oz - Constitutional no acute distress, cooperative - *Routine HEENT Exam Head: Present: normocephalic Eye: Present: EOMI, PERRL ENT: Present: mucous membranes moist - *Routine Neck Exam Present: supple. Absent: lymphadenopathy - *Routine Respiratory Exam Present: rhonchi. Absent: accessory muscle use, wheezes - *Routine Cardiovascular Exam Present: RRR - *Routine Abdominal Exam Present: soft, normoactive bowel sounds. Absent: tenderness - *Routine Extremities Exam Absent: cyanosis, clubbing, edema - *Routine Skin Exam Present: warm. Absent: rash - *Routine Neurological Exam Present: alert, oriented X3 Assessment and Plan (1) Sinus bradycardia Status: Acute Category: Medical Code(s): R00.1 - Bradycardia, unspecified (2) Elevated troponin Status: Acute Category: Medical Code(s): R77.8 - Other specified abnormalities of plasma proteins (3) Acute respiratory failure due to COVID-19 Status: Acute Category: Medical Code(s): U07.1 - COVID-19; J96.00 - Acute respiratory failure, unspecified whether with hypoxia or hypercapnia (4) Pneumonia due to COVID-19 virus Status: Acute Category: Medical Code(s): U07.1 - COVID-19; J12.82 - Pneumonia due to coronavirus disease 2019 (5) Acute respiratory failure with hypoxia Status: Acute Category: Medical Code(s): J96.01 - Acute respiratory failure with hypoxia (6) HTN (hypertension) Status: Chronic Qualifiers: Hypertension type: primary hypertension Qualified Code(s): I10 - Essential (primary) hypertension Category: Medical Code(s): I10 - Essential (primary) hypertension (7) Morbidly obese Status: Chronic Category: Medical Code(s): E66.01 - Morbid (severe) obesity due to excess calories - Assessment and plan all Dx Assessment and Plan for all problems:: We will continue current regimen. Clinical improvement is noted, hope to continue his positive trends. See chart for further orders
--- NOTE | 2021-07-04 14:19 | HMH.PULMPN ---
Internal Medicine - PN: Subj *Date: 07/04/21 *Time: 14:19 Interval history: No acute respiratory events overnight. Patient admits improvement in her symptoms. Denies any new respiratory complaints. Exam - Constitutional Constitutional:: Present: no acute distress, comfortable - HENMT Exam HENMT: Present: normocephalic, moist mucous membranes - Eye Exam Eyes:: Present: normal appearance both eyes and related structures - Neck Exam Neck:: Present: normal visual inspection - Respiratory Exam Respiratory:: Present: able to speak in complete sentences, no respiratory distress, rales - Cardiovascular Exam Cardiac:: Present: S1, S2 - GI Exam GI:: Present: soft - Skin Exam Skin: Present: warm, no rash - Neurological Exam Neurological: Present: alert, awake, normal cognition - Extremities Exam Extremities: Present: no cyanosis, no clubbing, no edema Assessment and Plan (1) Sinus bradycardia Status: Acute Category: Medical Code(s): R00.1 - Bradycardia, unspecified (2) Elevated troponin Status: Acute Category: Medical Code(s): R77.8 - Other specified abnormalities of plasma proteins (3) Acute respiratory failure due to COVID-19 Status: Acute Category: Medical Code(s): U07.1 - COVID-19; J96.00 - Acute respiratory failure, unspecified whether with hypoxia or hypercapnia (4) Pneumonia due to COVID-19 virus Status: Acute Category: Medical Code(s): U07.1 - COVID-19; J12.82 - Pneumonia due to coronavirus disease 2019 (5) Acute respiratory failure with hypoxia Status: Acute Category: Medical Code(s): J96.01 - Acute respiratory failure with hypoxia (6) HTN (hypertension) Status: Chronic Qualifiers: Hypertension type: primary hypertension Qualified Code(s): I10 - Essential (primary) hypertension Category: Medical Code(s): I10 - Essential (primary) hypertension (7) Morbidly obese Status: Chronic Category: Medical Code(s): E66.01 - Morbid (severe) obesity due to excess calories - Assessment and plan all Dx Assessment and Plan for all problems:: #Acute hypoxic respiratory failure: #COVID-19 pneumonia: 55-year-old no significant prior respiratory complaint recent diagnosis of COVID-19 pneumonia presented to the hospital worsening respiratory distress Positive sick contacts. CTA on admission did not show any pulmonary emboli however showed patchy pulmonary infiltrates and consolidation. Patient was needing noninvasive ventilator support BiPAP at admission to maintain her oxygen saturations, her respiratory status significantly improved eventually weaned to wean to nasal cannula, she is needing 4 to 5 L nasal cannula. Examining her saturations remained anywhere from 89 to 92%. We will closely monitor this patient for the next 24 hours and will plan for discharge Plan: -Continue nasal oxygen supplementation to maintain O2 saturation goal of 80 to 92%, patient will need home oxygen therapy on discharge. Please coordinate. -Advair twice daily scheduled along with Combivent every 6 hours as needed -Continue remdesivir, until discharge, and continue dexamethasone 6 mg daily for 10 days on broad-spectrum for 14 days -Continue ceftriaxone azithromycin for community-acquired pneumonia, nasal MRSA PCR negative. Day 5 will be today. #Thank you for involving pulmonary in this patient care. We will continue to follow.
[2021-07-04 15:52] LABS: POC Glucose,Bedside 131 (70-110)
[2021-07-04 17:12] LABS: POC Glucose,Bedside 164 (70-110)
--- NOTE | 2021-07-04 18:27 | PC.NURSE ---
Pt has been pleasant and cooperative this shift, remains on 5LNC and tolerating well, possible discharge tomorrow with home O2, denies any pain or SOA, vss, will continue to monitor.
[2021-07-04 20:19] LABS: POC Glucose,Bedside 187 (70-110)
[2021-07-05] VITALS (11 sets, daily range): BP systolic 109–149; BP diastolic 66–96; PULSE 50–94; RESP 16–21; TEMP 36.4–36.6; O2SAT 86–96; BMI 54.1
--- NOTE | 2021-07-05 05:42 | PC.NURSE ---
Patient is alert and oriented x4. At the beginning of this RN's shift NC was titrated down to 4.5L where she has maintained her oxygen levels above 90%. Patient has voiced no complaints this shift and no acute changes noted. VSS, call light within reach, will continue to monitor.
[2021-07-05 06:07] LABS: Alanine Aminotransferase 43 U/L (12-78); Albumin Level 2.7 g/dl (3.5-5.0); Alkaline Phosphatase 64 U/L (38-126); Anion Gap 6.6 mEq/L (5-15); Aspartate Amino Transferase 66 U/L (14-36); Bilirubin,Total 0.5 mg/dl (0.2-1.3); Blood Urea Nitrogen 15 mg/dl (7-17); Calcium 8.1 mg/dl (8.4-10.2); Carbon Dioxide 31 mmol/L (22.0-30.0); Chloride 103 mmol/L (98-107); Creatinine Clearance Estimated 134 mL/min (50-200); Estimated Glomerular Filt Rate 165 ml/min (>60); GFR (African American) 199 ML/MIN (>60); Globulin 2.7 g/dL (1.3-3.2); Glucose 102 mg/dl (74-100); Potassium 3.6 mmoL/L (3.5-5.1); Sodium 137 mmol/L (136-145); Total Protein,Serum 5.4 g/dl (6.3-8.2)
[2021-07-05 07:08] LABS: POC Glucose,Bedside 86 (70-110)
--- NOTE | 2021-07-05 09:01 | SW/DCPLANNER ---
Addendum entered by Leonela [place] 07/06/21 10:12: I have notified Lucille with [facility] that this patient will discharge home today. Addendum entered by [facility] 07/05/21 12:55: Portable O2 has been delivered: I have informed Amira Hudson that discharge has been pushed back till tomorrow now. Addendum entered by [facility] 07/05/21 11:19: Karen with [facility] has confirmed that patient information/order has been reviewed and portable O2 tank will be delivered. Original Note: The plan is for this patient to discharge later today. I spoke with Bjorn and she has recommended that patient return home with home O2 at 3.5L. Patient information/order has been faxed to [facility]. I will follow up with [facility] once patient information/order are reviewed.
--- NOTE | 2021-07-05 09:36 | P.PN_ITS ---
Internal Medicine - PN: Subj *Date: 07/05/21 *Time: 13:42 Interval history: No acute respiratory events overnight. Patient admits continued improvement in her symptoms. Exam - Constitutional Constitutional:: Present: no acute distress, comfortable - HENMT Exam HENMT: Present: normocephalic, atraumatic - Eye Exam Eyes:: Present: normal appearance both eyes and related structures - Neck Exam Neck:: Present: normal visual inspection - Respiratory Exam Respiratory:: Present: able to speak in complete sentences, no respiratory distress, rales - Cardiovascular Exam Cardiac:: Present: S1, S2 - GI Exam GI:: Present: soft - Skin Exam Skin: Present: warm, no rash - Neurological Exam Neurological: Present: alert, awake, normal cognition - Extremities Exam Extremities: Present: no cyanosis, no clubbing, edema Assessment and Plan (1) Sinus bradycardia Status: Acute Category: Medical Code(s): R00.1 - Bradycardia, unspecified (2) Elevated troponin Status: Acute Category: Medical Code(s): R77.8 - Other specified abnormalities of plasma proteins (3) Acute respiratory failure due to COVID-19 Status: Acute Category: Medical Code(s): U07.1 - COVID-19; J96.00 - Acute respiratory failure, unspecified whether with hypoxia or hypercapnia (4) Pneumonia due to COVID-19 virus Status: Acute Category: Medical Code(s): U07.1 - COVID-19; J12.82 - Pneumonia due to coronavirus disease 2019 (5) Acute respiratory failure with hypoxia Status: Acute Category: Medical Code(s): J96.01 - Acute respiratory failure with hypoxia (6) HTN (hypertension) Status: Chronic Qualifiers: Hypertension type: primary hypertension Qualified Code(s): I10 - Essential (primary) hypertension Category: Medical Code(s): I10 - Essential (primary) hypertension (7) Morbidly obese Status: Chronic Category: Medical Code(s): E66.01 - Morbid (severe) obesity due to excess calories - Assessment and plan all Dx Assessment and Plan for all problems:: #COVID-19 pneumonia: 55-year-old no significant prior respiratory complaint recent diagnosis of COVID-19 pneumonia presented to the hospital worsening respiratory distress Positive sick contacts. CTA on admission did not show any pulmonary emboli however showed patchy pulmonary infiltrates and consolidation. Patient was needing noninvasive ventilator support BiPAP at admission to maintain her oxygen saturations, her respiratory status significantly improved eventually weaned to wean to nasal cannula, she is needing 4 to 5 L nasal cannula. She completed 5-day course of ceftriaxone and azithromycin during his hospital stay. Patient is morning on 4 L nasal cannula saturating 92%. Auscultation of expiratory bilateral rails. Does not appear to be in any respiratory distress. Plan: -Continue nasal oxygen supplementation to maintain O2 saturation goal of 80 to 92%, patient will need home oxygen therapy @ 4L on discharge. Please coordina te. -Advair twice daily scheduled along with Combivent every 6 hours as needed -Continue remdesivir, until discharge, and continue dexamethasone 6 mg daily for 10 days on broad-spectrum for 14 days #Thank you for involving pulmonary in this patient care. We will follow the patient in pulmonary clinic 4 to 6 weeks post discharge
--- NOTE | 2021-07-05 12:51 | HMH.ACPN2 ---
Internal Medicine - PN: Subj *Date: 07/05/21 *Time: 09:10 Interval history: pt sitting up in bed, states doing well Exam Vital signs and Labs for Last 24 Hours: Temp Pulse Resp BP Pulse Ox 97.5 F L 94 H 18 109/66 L 86 L 07/05/21 08:00 07/05/21 08:00 07/05/21 08:00 07/05/21 08:00 07/05/21 10:00 Laboratory Results - last 24 hr 07/04/21 12:19: POC Glucose 131 H 07/04/21 16:39: POC Glucose 164 H 07/04/21 19:59: POC Glucose 187 H 07/05/21 05:18: Sodium 137, Potassium 3.6, Chloride 103, Carbon Dioxide 31 H, Anion Gap 6.6, BUN 15, Creatinine 0.40 L D, Estimated Creat Clear 134, Estimated GFR 165, Est GFR ( Amer) 199 D, Glucose 102 H, Calcium 8.1 L, Total Bilirubin 0.5, AST 66 H D, ALT 43, Alkaline Phosphatase 64, Total Protein 5.4 L, Albumin 2.7 L, Globulin 2.7, Albumin/Globulin Ratio 1.0 L 07/05/21 06:37: POC Glucose 86 I & O for Last 24 hours: Intake & Output 07/03/21 07/04/21 07/05/21 07/06/21 11:59 11:59 11:59 11:59 Intake Total 960 / 960 600 / 600 960 / 960 Output Total 2625 / 2625 Balance -1665 / -1665 600 / 600 960 / 960 Weight 318 lb 317 lb 15.987 oz 317 lb 3.2 oz - Constitutional no acute distress, obese - *Routine HEENT Exam Head: Present: normocephalic Eye: Present: PERRL ENT: Present: mucous membranes moist - *Routine Neck Exam Present: supple. Absent: lymphadenopathy - *Routine Respiratory Exam Present: wheezes - *Routine Cardiovascular Exam Present: RRR - *Routine Abdominal Exam Present: soft, normoactive bowel sounds. Absent: tenderness - *Routine Extremities Exam Absent: cyanosis, clubbing, edema - *Routine Skin Exam Present: warm. Absent: rash - *Routine Neurological Exam Present: alert, oriented X3 - Routine Psychiatric Exam Present: normal affect Assessment and Plan (1) Sinus bradycardia Status: Acute Category: Medical Code(s): R00.1 - Bradycardia, unspecified (2) Elevated troponin Status: Acute Category: Medical Code(s): R77.8 - Other specified abnormalities of plasma proteins (3) Acute respiratory failure due to COVID-19 Status: Acute Category: Medical Code(s): U07.1 - COVID-19; J96.00 - Acute respiratory failure, unspecified whether with hypoxia or hypercapnia (4) Pneumonia due to COVID-19 virus Status: Acute Category: Medical Code(s): U07.1 - COVID-19; J12.82 - Pneumonia due to coronavirus disease 2019 (5) Acute respiratory failure with hypoxia Status: Acute Category: Medical Code(s): J96.01 - Acute respiratory failure with hypoxia (6) HTN (hypertension) Status: Chronic Qualifiers: Hypertension type: primary hypertension Qualified Code(s): I10 - Essential (primary) hypertension Category: Medical Code(s): I10 - Essential (primary) hypertension (7) Morbidly obese Status: Chronic Category: Medical Code(s): E66.01 - Morbid (severe) obesity due to excess calories - Assessment and plan all Dx Assessment and Plan for all problems:: rounded with dr blanco all orders per dr blanco pulm consult poss dc in am
[2021-07-05 21:44] LABS: POC Glucose,Bedside 189 (70-110)
[2021-07-05 21:44] LABS: POC Glucose,Bedside 162 (70-110)
[2021-07-05 21:44] LABS: POC Glucose,Bedside 119 (70-110)
[2021-07-06] VITALS: PULSE 60
[2021-07-06 04:00] VITALS: BP 117/74; PULSE 55; PULSE 57; RESP 19; TEMP 36.7; O2SAT 95
[2021-07-06 04:36] VITALS: BMI 54.3
--- NOTE | 2021-07-06 05:58 | PC.NURSE ---
pt has remained on 4L NC with no complaints of SOA or pain, O2 sats 94-95%, patient is looking forward to going home,
[2021-07-06 06:12] LABS: POC Glucose,Bedside 91 (70-110)
[2021-07-06 06:39] LABS: Alanine Aminotransferase 37 U/L (12-78); Albumin Level 2.7 g/dl (3.5-5.0); Alkaline Phosphatase 66 U/L (38-126); Anion Gap 7.8 mEq/L (5-15); Aspartate Amino Transferase 50 U/L (14-36); Bilirubin,Total 0.4 mg/dl (0.2-1.3); Blood Urea Nitrogen 14 mg/dl (7-17); Calcium 8.2 mg/dl (8.4-10.2); Carbon Dioxide 31 mmol/L (22.0-30.0); Chloride 105 mmol/L (98-107); Creatinine Clearance Estimated 107 mL/min (50-200); Estimated Glomerular Filt Rate 127 ml/min (>60); GFR (African American) 154 ML/MIN (>60); Globulin 2.6 g/dL (1.3-3.2); Glucose 95 mg/dl (74-100); Potassium 3.8 mmoL/L (3.5-5.1); Sodium 140 mmol/L (136-145); Total Protein,Serum 5.3 g/dl (6.3-8.2)
[2021-07-06 08:00] VITALS: BP 111/61; PULSE 60; PULSE 86; RESP 18; TEMP 36.5; O2SAT 93; O2SAT 94
--- NOTE | 2021-07-06 10:02 | P.PN_ITS ---
Internal Medicine - PN: Subj *Date: 07/06/21 *Time: 10:02 Exam Vital signs and Labs for Last 24 Hours: Temp Pulse Resp BP Pulse Ox 97.7 F 86 18 111/61 93 L 07/06/21 08:00 07/06/21 08:00 07/06/21 08:00 07/06/21 08:00 07/06/21 08:00 Laboratory Results - last 24 hr 07/05/21 12:51: POC Glucose 189 H 07/05/21 16:51: POC Glucose 162 H 07/05/21 21:30: POC Glucose 119 H 07/06/21 05:27: Sodium 140, Potassium 3.8, Chloride 105, Carbon Dioxide 31 H, Anion Gap 7.8, BUN 14, Creatinine 0.50 L D, Estimated Creat Clear 107, Estimated GFR 127, Est GFR ( Amer) 154 D, Glucose 95, Calcium 8.2 L, Total Bilirubin 0.4, AST 50 H, ALT 37, Alkaline Phosphatase 66, Total Protein 5.3 L, Albumin 2.7 L, Globulin 2.6, Albumin/Globulin Ratio 1.0 L 07/06/21 05:42: POC Glucose 91 I & O for Last 24 hours: Intake & Output 07/03/21 07/04/21 07/05/21 07/06/21 23:59 23:59 23:59 23:59 Intake Total 840 / 840 840 / 840 1080 / 1200 120 / 120 Output Total 325 / 325 Balance 515 / 515 840 / 840 1080 / 1200 120 / 120 Weight 144.242 kg 144.242 kg 143.879 kg 144.242 kg Assessment and Plan (1) Sinus bradycardia Status: Acute Category: Medical Code(s): R00.1 - Bradycardia, unspecified (2) Elevated troponin Status: Acute Category: Medical Code(s): R77.8 - Other specified abnormalities of plasma proteins (3) Acute respiratory failure due to COVID-19 Status: Acute Category: Medical Code(s): U07.1 - COVID-19; J96.00 - Acute respiratory failure, unspecified whether with hypoxia or hypercapnia (4) Pneumonia due to COVID-19 virus Status: Acute Category: Medical Code(s): U07.1 - COVID-19; J12.82 - Pneumonia due to coronavirus disease 2019 (5) Acute respiratory failure with hypoxia Status: Acute Category: Medical Code(s): J96.01 - Acute respiratory failure with hypoxia (6) HTN (hypertension) Status: Chronic Qualifiers: Hypertension type: primary hypertension Qualified Code(s): I10 - Essential (primary) hypertension Category: Medical Code(s): I10 - Essential (primary) hypertension (7) Morbidly obese Status: Chronic Category: Medical Code(s): E66.01 - Morbid (severe) obesity due to excess calories The patient's infection will respond to the chosen ABx?: Yes (PNEUMONIA, NON- ICU) Is the patient receiving the right drug, dose, and route?: Yes Could a more targeted ABx be ordered?: No
[2021-07-06 10:26] VITALS: O2SAT 88
--- NOTE | 2021-07-06 10:59 | HMH.DCSUM ---
General - General Admission date:: 06/29/21 Discharge date: 07/06/21 HPI HPI: this patient presented to the ed - a 55-year-old female presented to the emergency department with some difficulty breathing. Patient was diagnosed with coronavirus last week. Patient is unvaccinated. She states that her difficulty breathing is been getting worse over the last few days. She states that she could not catch her breath today which prompted her to come the emergency department. Patient appears to be in severe respiratory distress on presentation. She has discoloration and mottling. She is talking in 2 word sentences. She has had a mild cough, nonproductive in nature. No hemoptysis. Denies any associated chest pain or palpitations. No headache or change in vision. Has had some fevers and chills. No abdominal pain. No diarrhea. pt was found to have pneumonia and hypoxia and was admitted for resp failure treatment and pul eval Hospital Course Hospital Course: Laboratory Tests 06/28/21 06/28/21 06/28/21 17:40 17:40 17:40 WBC 6.0 RBC 5.59 H Hgb 15.7 Hct 47.8 H MCV 85.4 MCH 28.0 MCHC 32.8 RDW 14.8 Plt Count 219 MPV 8.9 Neut % (Auto) 71.1 Lymph % (Auto) 20.8 Early % (Auto) 6.6 Eos % (Auto) 0.2 Baso % (Auto) 1.3 Neut # (Auto) 4.3 Lymph # (Auto) 1.3 Early # (Auto) 0.4 Eos # (Auto) 0.0 Baso # (Auto) 0.1 Specimen Source O2 % ABG pH ABG pCO2 ABG pO2 ABG HCO3 ABG Total CO2 ABG O2 Saturation ABG Base Excess Reji Test Sodium 133 L Potassium 3.6 Chloride 94 L Carbon Dioxide 29 Anion Gap 13.6 BUN 20 H Creatinine 0.90 Estimated Creat Clear 60 Estimated GFR 65 Est GFR ( Amer) 78 Glucose 121 H POC Glucose Lactate Calcium 8.3 L Total Bilirubin 0.8 AST 93 H ALT 33 Alkaline Phosphatase 90 Troponin I 0.03 NT-Pro-B Natriuret Pep 73.6 Total Protein 6.7 Albumin 3.4 L Globulin 3.3 H Albumin/Globulin Ratio 1.0 L SARS-CoV-2 (PCR) Detected A Influenza A Untype (PCR) Not detected Influenza Type B (PCR) Not detected 06/28/21 06/28/21 06/28/21 18:37 20:34 22:18 WBC RBC Hgb Hct MCV MCH MCHC RDW Plt Count MPV Neut % (Auto) Lymph % (Auto) Early % (Auto) Eos % (Auto) Baso % (Auto) Neut # (Auto) Lymph # (Auto) Early # (Auto) Eos # (Auto) Baso # (Auto) Specimen Source O2 % ABG pH ABG pCO2 ABG pO2 ABG HCO3 ABG Total CO2 ABG O2 Saturation ABG Base Excess Reji Test Sodium Potassium Chloride Carbon Dioxide Anion Gap BUN Creatinine Estimated Creat Clear Estimated GFR Est GFR ( Amer) Glucose POC Glucose 132 H Lactate 1.6 Calcium Total Bilirubin AST ALT Alkaline Phosphatase Troponin I 0.05 H NT-Pro-B Natriuret Pep Total Protein Albumin Globulin Albumin/Globulin Ratio SARS-CoV-2 (PCR) Influenza A Untype (PCR) Influenza Type B (PCR) 06/28/21 06/28/21 06/29/21 22:57 23:19 03:09 WBC RBC Hgb Hct MCV MCH MCHC RDW Plt Count MPV Neut % (Auto) Lymph % (Auto) Early % (Auto) Eos % (Auto) Baso % (Auto) Neut # (Auto) Lymph # (Auto) Early # (Auto) Eos # (Auto) Baso # (Auto) Specimen Source Right radial O2 % 100 ABG pH 7.38 ABG pCO2 34.7 L ABG pO2 83.7 ABG HCO3 19.9 L ABG Total CO2 20.9 L ABG O2 Saturation 96 ABG Base Excess -5.3 L Reji Test Acceptable Sodium Potassium Chloride Carbon Dioxide Anion Gap BUN Creatinine Estimated Creat Clear Estimated GFR Est GFR ( Amer) Glucose POC Glucose 156 H Lactate Calcium Total Bilirubin AST ALT Alkaline Phosphatase Troponin I 0
[2021-07-06 12:00] VITALS: BP 116/72; PULSE 79; RESP 18; TEMP 36.6; O2SAT 94
[2021-07-06 14:11] LABS: POC Glucose,Bedside 131 (70-110)
--- NOTE | 2021-07-06 15:28 | P.PN_ITS ---
Internal Medicine - PN: Subj *Date: 07/06/21 *Time: 15:28 Interval history: No acute resp events overnight. Exam - Constitutional Constitutional:: Present: no acute distress - HENMT Exam HENMT: Present: normocephalic - Eye Exam Eyes:: Present: normal appearance both eyes and related structures - Neck Exam Neck:: Present: normal visual inspection - Respiratory Exam Respiratory:: Present: able to speak in complete sentences, rales - Cardiovascular Exam Cardiac:: Present: S1, S2 - GI Exam GI:: Present: soft - Skin Exam Skin: Present: warm - Neurological Exam Neurological: Present: alert - Extremities Exam Extremities: Present: no cyanosis, no clubbing - Psychiatric Exam Psychiatric: Present: normal affect Assessment and Plan (1) Sinus bradycardia Status: Acute Category: Medical Code(s): R00.1 - Bradycardia, unspecified (2) Elevated troponin Status: Acute Category: Medical Code(s): R77.8 - Other specified abnormalities of plasma proteins (3) Acute respiratory failure due to COVID-19 Status: Acute Category: Medical Code(s): U07.1 - COVID-19; J96.00 - Acute respiratory failure, unspecified whether with hypoxia or hypercapnia (4) Pneumonia due to COVID-19 virus Status: Acute Category: Medical Code(s): U07.1 - COVID-19; J12.82 - Pne umonia due to coronavirus disease 2019 (5) Acute respiratory failure with hypoxia Status: Acute Category: Medical Code(s): J96.01 - Acute respiratory failure with hypoxia (6) HTN (hypertension) Status: Chronic Qualifiers: Hypertension type: primary hypertension Qualified Code(s): I10 - Essential (primary) hypertension Category: Medical Code(s): I10 - Essential (primary) hypertension (7) Morbidly obese Status: Chronic Category: Medical Code(s): E66.01 - Morbid (severe) obesity due to excess calories - Assessment and plan all Dx Assessment and Plan for all problems:: #COVID-19 pneumonia: 55-year-old no significant prior respiratory complaint recent diagnosis of COVID-19 pneumonia presented to the hospital worsening respiratory distress Positive sick contacts. CTA on admission did not show any pulmonary emboli however showed patchy pulmonary infiltrates and consolidation. Patient was needing noninvasive ventilator support BiPAP at admission to maintain her oxygen saturations, her respiratory status significantly improved eventually weaned to wean to nasal cannula, she is needing 4 to 5 L nasal cannula. She completed 5-day course of ceftriaxone and azithromycin during his hospital stay. Patient is morning on 4 L nasal cannula saturating 92%. Auscultation of expiratory bilateral rails. Does not appear to be in any respiratory distress. Plan: -Continue nasal oxygen supplementation to maintain O2 saturation goal of 80 to 92%, patient will need home oxygen therapy @ 4L on discharge. Please coordinate. -Advair twice daily scheduled along with Combivent every 6 hours as needed -Continue remdesivir, until discharge, and continue dexamethasone 6 mg daily for 10 days and barcitinib for 14 days #Thank you for involving pulmonary in this patient care. We will follow the patient in pulmonary clinic 4 to 6 weeks post discharge
== END 2021-07-06 16:40 | disposition home or self-care (01) | DRG 177 ==
LOC: ER 18:57 → 2ND 06-29 07:18
PROVIDERS: Family Medicine; Internal Medicine; Internal Medicine Pulmonary Disease; Admitting Provider Internal Medicine Adolescent Medicine; Emergency Provider Emergency Medicine; PCP Emergency Medicine; Visit Provider Emergency Medicine
DX: U07.1 COVID-19 (principal); J12.82 Pneumonia due to coronavirus disease 2019; J96.01 Acute respiratory failure with hypoxia; Z68.43 Body mass index [BMI] 50.0-59.9, adult; E66.01 Morbid (severe) obesity due to excess calories; I10 Essential (primary) hypertension; R77.8 Other specified abnormalities of plasma proteins; Z87.891 Personal history of nicotine dependence; D64.9 Anemia, unspecified; M19.90 Unspecified osteoarthritis, unspecified site; Z85.819 Personal history of malignant neoplasm of unspecified site of lip, oral cavity, and pharynx; Z86.711 Personal history of pulmonary embolism; Z86.718 Personal history of other venous thrombosis and embolism; F41.9 Anxiety disorder, unspecified; G89.29 Other chronic pain; M54.9 Dorsalgia, unspecified; R00.1 Bradycardia, unspecified; F32.9 Major depressive disorder, single episode, unspecified; I95.9 Hypotension, unspecified
CPT/HCPCS: 36415; 71045; 71275; 80053; 82803; 82962; 83605; 83880; 84484; 85025; 87081; 93005; 93306; 94640; 94660; 94760; 94761; 96365; 96367; 96375; 99284; C9803; J0456; J1250; J1610; Q9967; U0003; U0005

== ENCOUNTER → 2021-08-15 13:06 | Outpatient (CLI) | payer MEDICAID, SELFPAY ==
[2021-08-15 14:46] LABS: Ferritin 30.6 ng/ml (11.1-264)
== END ==
PROVIDERS: Visit Provider Nurse Practitioner Family
DX: E83.10 Disorder of iron metabolism, unspecified (principal); G25.81 Restless legs syndrome; R47.89 Other speech disturbances; Z87.898 Personal history of other specified conditions
CPT/HCPCS: 36415; 82728

== ENCOUNTER → 2021-08-15 13:15 | Outpatient (CLI) | payer MEDICAID, SELFPAY | PROVIDERS: PCP Emergency Medicine; Visit Provider Internal Medicine Pulmonary Disease | DX: R06.00 Dyspnea, unspecified (principal) | CPT/HCPCS: 94762 ==

== ENCOUNTER → 2021-09-15 07:49 | Outpatient (CLI) | payer MEDICAID, SELFPAY ==
--- NOTE | 2021-09-15 08:30 | PC.NURSE ---
PFT and 6 Minute walk test completed without incident. Albuterol 0.083% given via HHN Pt tolerated tx well.
== END ==
PROVIDERS: PCP Emergency Medicine; Visit Provider Internal Medicine Pulmonary Disease
DX: R06.00 Dyspnea, unspecified (principal); Z86.16 Personal history of COVID-19
CPT/HCPCS: 94060; 94618; 94726; 94729

== ENCOUNTER → 2021-10-11 09:10 | Outpatient (CLI) | payer MEDICAID, SELFPAY | PROVIDERS: PCP Emergency Medicine; Visit Provider Internal Medicine Pulmonary Disease | DX: R06.02 Shortness of breath (principal) | CPT/HCPCS: 94762 ==

== ENCOUNTER → 2021-10-29 14:55 | Outpatient (CLI) | payer MEDICAID, SELFPAY | PROVIDERS: PCP Emergency Medicine; Visit Provider Internal Medicine Pulmonary Disease | DX: R06.00 Dyspnea, unspecified (principal); G47.33 Obstructive sleep apnea (adult) (pediatric) | CPT/HCPCS: 95806 ==

== ENCOUNTER → 2021-11-01 18:09 | Outpatient (CLI) | payer MEDICAID, SELFPAY ==
[2021-11-01 18:25] LABS: Alanine Aminotransferase 16 U/L (12-78); Albumin Level 4.3 g/dl (3.5-5.0); Albumin/Globulin Ratio 1.7 (1.1-1.8); Alkaline Phosphatase 96 U/L (38-126); Anion Gap 9.1 mEq/L (5-15); Aspartate Amino Transferase 31 U/L (14-36); Bilirubin,Total 0.5 mg/dl (0.2-1.3); Blood Urea Nitrogen 15 mg/dl (7-17); Calcium 9.4 mg/dl (8.4-10.2); Carbon Dioxide 31 mmol/L (22.0-30.0); Chloride 107 mmol/L (98-107); Chol/HDL Ratio 2.6 (1-3.5); Cholesterol 169 mg/dl (140-200); Estimated Glomerular Filt Rate 86 ml/min (>60); GFR (African American) 104 ML/MIN (>60); Globulin 2.6 g/dL (1.3-3.2); Glucose 76 mg/dl (74-100); HDL Cholesterol 64 mg/dl (40-60); Potassium 4.1 mmoL/L (3.5-5.1); Sodium 143 mmol/L (136-145); Total Protein,Serum 6.9 g/dl (6.3-8.2); Triglycerides 108 mg/dl (30-150); VLDL Cholesterol 22 mg/dL (0-40)
[2021-11-01 18:36] LABS: Direct LDL Cholesterol 51.67 mg/dL (100-129)
[2021-11-01 18:41] LABS: 25-OH Vitamin D, Total 33.5 ng/mL (30-100)
[2021-11-01 18:42] LABS: T4 (Thyroxine) 10.7 ug/dl (5.53-11.0)
[2021-11-01 18:51] LABS: Basophils # 0.1 K/mm3 (0-0.2); Basophils % 1.1 % (0.1-2.0); Eosinophils # 0.2 K/mm3 (0.0-0.4); Eosinophils % 2.8 % (0.1-12.0); Hematocrit 46.7 % (37.0-47.0); Hemoglobin 14.7 g/dL (12.2-16.2); Lymphocytes # 1.7 K/mm3 (0.7-4.5); Lymphocytes % 27.1 % (10-50); Mean Corpuscular HGB Conc 31.5 g/dL (31.8-35.4); Mean Corpuscular Hemoglobin 28.3 pg (27.0-31.2); Mean Corpuscular Volume 89.9 fl (81-99); Mean Platelet Volume 9.3 fl (7.4-10.4); Monocytes # 0.4 K/mm3 (0.1-1.0); Monocytes % 5.9 % (1.7-9.3); Neutrophils # 3.9 K/mm3 (1.8-7.8); Neutrophils % 63.1 % (37.0-80.0); Platelet Count 235 K/mm3 (142-424); Red Blood Count 5.19 M/mm3 (4.20-5.40); Red Cell Distribution Width 15.1 % (11.5-17.5); White Blood Count 6.2 K/mm3 (4.8-10.8)
[2021-11-01 18:56] LABS: Thyroid Stimulating Hormone 2.22 uIU/mL (0.465-4.68)
== END ==
PROVIDERS: Visit Provider Nurse Practitioner Family
DX: L65.9 Nonscarring hair loss, unspecified (principal); R53.83 Other fatigue; E66.01 Morbid (severe) obesity due to excess calories; Z68.43 Body mass index [BMI] 50.0-59.9, adult
CPT/HCPCS: 80053; 80061; 82306; 84436; 84443; 85025

== ENCOUNTER → 2021-12-07 15:18 | Outpatient (CLI) | payer MEDICAID, SELFPAY | PROVIDERS: PCP Emergency Medicine; Visit Provider Nurse Practitioner Family | DX: G47.33 Obstructive sleep apnea (adult) (pediatric) (principal); G47.34 Idiopathic sleep related nonobstructive alveolar hypoventilation; R41.3 Other amnesia | CPT/HCPCS: 94762 ==

== ENCOUNTER → 2022-06-06 09:17 | Outpatient (CLI) | payer MEDICARE, MEDICAID, SELFPAY ==
[2022-06-06 10:04] LABS: Basophils # 0.1 K/mm3 (0-0.2); Basophils % 1.4 % (0.1-2.0); Eosinophils # 0.2 K/mm3 (0.0-0.4); Eosinophils % 2.4 % (0.1-12.0); Hematocrit 49.7 % (37.0-47.0); Hemoglobin 15.4 g/dL (12.2-16.2); Lymphocytes # 2.2 K/mm3 (0.7-4.5); Lymphocytes % 26.6 % (10-50); Mean Corpuscular HGB Conc 31.1 g/dL (31.8-35.4); Mean Corpuscular Hemoglobin 28.9 pg (27.0-31.2); Mean Platelet Volume 8.4 fl (7.4-10.4); Monocytes # 0.5 K/mm3 (0.1-1.0); Neutrophils # 5.2 K/mm3 (1.8-7.8); Neutrophils % 63.6 % (37.0-80.0); Platelet Count 215 K/mm3 (142-424); Red Blood Count 5.34 M/mm3 (4.20-5.40); Red Cell Distribution Width 14.2 % (11.5-17.5); White Blood Count 8.1 K/mm3 (4.8-10.8)
[2022-06-06 11:07] LABS: Erythrocyte Sedimentation Rate 6 mm/hr (0-30)
[2022-06-06 11:32] LABS: Vitamin B12 861 pg/mL (239-931)
[2022-06-06 11:34] LABS: Thyroid Stimulating Hormone 2.27 uIU/mL (0.465-4.68)
[2022-06-06 11:38] LABS: Ferritin 21.3 ng/ml (11.1-264)
[2022-06-06 12:51] LABS: Alanine Aminotransferase 17 U/L (12-78); Albumin Level 4.1 g/dl (3.5-5.0); Albumin/Globulin Ratio 1.5 (1.1-1.8); Alkaline Phosphatase 115 U/L (38-126); Anion Gap 11.4 mEq/L (5-15); Aspartate Amino Transferase 34 U/L (14-36); Bilirubin,Total 0.7 mg/dl (0.2-1.3); Blood Urea Nitrogen 13 mg/dl (7-17); Calcium 9.5 mg/dl (8.4-10.2); Carbon Dioxide 27 mmol/L (22.0-30.0); Chloride 108 mmol/L (98-107); Estimated Glomerular Filt Rate 64 ml/min (>60); GFR (African American) 78 ML/MIN (>60); Globulin 2.8 g/dL (1.3-3.2); Glucose 104 mg/dl (74-100); Potassium 4.4 mmoL/L (3.5-5.1); Sodium 142 mmol/L (136-145); Total Protein,Serum 6.9 g/dl (6.3-8.2)
[2022-06-14 23:14] LABS: 1,25 Dihydroxy Vitamin D 92 pg/mL (.); 1,25-Dihydroxy, Vitamin D-2 16 pg/mL (.); 1,25-Dihydroxy, Vitamin D-3 76 pg/mL (.)
== END ==
PROVIDERS: PCP Emergency Medicine; Visit Provider Nurse Practitioner Family
DX: E83.10 Disorder of iron metabolism, unspecified (principal); G47.10 Hypersomnia, unspecified; R41.3 Other amnesia
CPT/HCPCS: 36415; 80053; 82607; 82652; 82728; 82746; 84443; 85025; 85651

== ENCOUNTER → 2022-06-14 16:57 | Outpatient (CLI) | payer MEDICARE, MEDICAID, SELFPAY ==
--- NOTE | 2022-06-14 16:59 | MM_ITS ---
PROCEDURE INFORMATION: Exam: MG Bilateral Screening 3D Mammography Exam date and time: 06/14/2022 4:51 PM Age: 56 years old Clinical indication: Screening examination TECHNIQUE: Imaging protocol: Bilateral Screening tomosynthesis and 2D mammography including computer-aided detection (CAD) when performed. COMPARISON: 1. MG MM DIG SCREENING MAMM BI W/CAD 05/31/2021 1:46 PM 2. MG MM DIG SCREENING MAMM BI W/CAD 09/10/2019 9:28 AM 3. SD MAMMO SCREEN 07/10/2018 12:04 PM FINDINGS: MAMMOGRAPHY: Breast composition: The breasts are almost entirely fatty. Mass: No suspicious masses. Architectural distortion: No suspicious distortion. Calcifications: No suspicious calcifications. Asymmetric density: None. Skin thickening: None. Axillary adenopathy: None. IMPRESSION: No mammographic evidence of malignancy. Annual screening is recommended unless otherwise clinically indicated. ASSESSMENT: BI-RADS Category 1: Negative
== END ==
PROVIDERS: PCP Emergency Medicine; Visit Provider Emergency Medicine
DX: Z12.31 Encounter for screening mammogram for malignant neoplasm of breast (principal)
CPT/HCPCS: 77063; 77067

== ENCOUNTER 2022-07-27 10:03 | Day surgery (SDC) | payer MEDICARE, MEDICAID, SELFPAY ==
[2022-07-26 11:27] VITALS: BMI 53.1
[2022-07-27 10:23] VITALS: BP 153/71; PULSE 55; RESP 20; TEMP 36.2; O2SAT 95
[2022-07-27 10:50] VITALS: O2SAT 95
--- NOTE | 2022-07-27 11:24 | EXP.ANES.CKL ---
[facility] Medical History Allergic rhinitis Allergies Asthma Bifascicular block Dyspnea Dyspnea on exertion Family history of asthma History of 2019 novel coronavirus disease (COVID-19) Hypertension Major depressive disorder Mild persistent asthma Nocturnal hypoxemia Panic disorder Right bundle branch block Surgical History History of bariatric surgery History of carpal tunnel release History of section History of colonoscopy History of total hysterectomy Family History Other Cancer Coronary artery disease Diabetes Heart attack Hypertension Stroke Social History Smoking Status: Former smoker pack-years: 15 alcohol intake: never substance use type: denies use current occupational status: retired Travel in the last 8 weeks: None household members: family housing: house number of children: 3 caffeine: Yes [facility] Anesthesia Checklist Patient Identification Patient Identification: Arm Band and Verbal (Name & ) Structural Data Admitted From: Home Planned Operative Procedure/s: Colonoscopy Consent for Planned Operative Procedure(s) Verified: Yes NPO Status Verified Time NPO: 06:00 Airway Assessment C-Spine Mobility Assessed: Yes TMJ Mobility Assessed: Yes Dentition: Good Dentition Neurological Assessment Level of Consciousness: Awake Hx Seizures: No Numbness or tingling in extremities: No Anesthesia Plan Anesthesia Risk discussed: Yes Anesthesia Plan: Verified ASA Class: III Anesthesia Type: MAC
--- NOTE | 2022-07-27 11:42 | P.PCN_ITS ---
Procedure: Date: 07/27/22 Patient Date of :: 1965 Procedure Performed:: Total colonoscopy to cecum with multiple polypectomy Indications:: Patient is a 56-year-old female referred by Dr. Livingston's office for colonoscopy. She had apparently undergone colonoscopy in 2018 in [place] and 3-year follow- up colonoscopy was recommended. Patient states that she had polyps. Exact details are unknown. Patient does state that she has had some occasional left lower quadrant pain. She has some constipation. She has noted skin breakdown in the left inguinal area and in the gluteal cleft prior to beginning the procedure. Performing Provider:: Deep Narayan MD Referring Provider:: Francisco Livingston MD Sedation:: MAC sedation Procedure:: Patient history was obtained and appropriate physical examination was performed. Patient's medications and allergies were reviewed. Informed consent was obtained after explaining the benefits, alternatives, and risks of the procedure including, but not limited to, bleeding, perforation, missed lesions, and adverse reaction to anesthesia medications. Patient was transported to endoscopy procedure room. Patient was connected to monitoring devices. Throughout the procedure the patient's blood pressure, pulse, and oxygen saturations were monitored continuously. Patient identification and planned procedure were verified by the staff. Patient was positioned in lateral decubitus position. Digital anorectal exam was performed. Variable stiffness Olympus colonoscope was inserted and advanced under direct visualization to the cecum. Adequacy of the colonic pre paration was noted. Ileocecal valve and appendiceal orifice were identified. The colonoscope was then slowly withdrawn while carefully examining the color, texture, anatomy, and integrity of the mucosoa circumferentially. Within the rectum retroflexion was performed. Colonoscope was then withdrawn. IMPRESSION: Upon insertion of the colonoscope there was noted to be a small descending colon polyp removed with cold snare. In the proximal transverse colon there was a small polyp removed with cold snare. Upon reaching the cecum there were a couple of polyps, adenomatous appearing, removed with cold snare. In the ascending colon there was an irregular moderate sized polyp removed with hot snare. At the hepatic flexure there was a moderate polyp removed with hot snare. Near the splenic flexure there is a small polyp removed with cold snare. In the proximal descending colon there was a moderate polyp removed with hot snare. In the sigmoid colon there was a moderate polyp removed with hot snare. In the distal sigmoid colon there was a tiny diminutive polyp removed with cold biopsy forceps. She did have some sigmoid diverticulosis. There was noted to be some nonbleeding internal hemorrhoids. Findings:: She had a total of 10 polyps. Several of these were moderate sized requiring removal with hot snare She had sigmoid diverticulosis without evidence of diverticulitis Nonbleeding internal hemorrhoids Recommendations:: Follow-up colonoscopy pending pathology. Likely 2 or 3 years. May require referral to facility with bariatric capabilities/equipment. Complications:: None immediately apparent Estimated blood obtained (mL): 3
[2022-07-27 11:50] VITALS: BP 108/71; PULSE 58; RESP 20; TEMP 36.2; O2SAT 98
[2022-07-27 12:00] VITALS: BP 132/72; PULSE 64; RESP 20; O2SAT 98
[2022-07-27 12:10] VITALS: BP 121/80; PULSE 61; RESP 18; O2SAT 99
[2022-07-27 12:20] VITALS: BP 155/73; PULSE 57; RESP 18; TEMP 36.2; O2SAT 98
== END 2022-07-27 12:20 | disposition home or self-care (01) ==
PROVIDERS: PCP Emergency Medicine; Visit Provider Surgery
PROC: 0DJD8ZZ Inspection of Lower Intestinal Tract, Via Natural or Artificial Opening Endoscopic (ICD-10-PCS; principal; 2022-07-27 11:00)
DX: Z12.11 Encounter for screening for malignant neoplasm of colon (principal); Z86.010 Personal history of colon polyps; K63.5 Polyp of colon; K64.8 Other hemorrhoids; Z79.899 Other long term (current) drug therapy
CPT/HCPCS: 45380; 45385; J2704

== ENCOUNTER 2022-09-12 17:13 | Emergency (ER) | payer MEDICARE, MEDICAID, SELFPAY ==
[2022-09-12 17:35] VITALS: BP 127/85; PULSE 68; RESP 18; TEMP 36.9; O2SAT 98; BMI 53.1
--- NOTE | 2022-09-12 18:14 | EXP.UTC ---
Discharge Plan Disposition Patient Disposition: Home, Self-Care Condition: Good Prescriptions Prescriptions: New oseltamivir [Tamiflu] 75 mg capsule 75 mg PO Q12H 5 Days Qty: 10 0RF No Action selenium 100 mcg tablet 100 mcg PO DAILY biotin 1 mg capsule 1 mg PO DAILY Slow Fe 142 mg (45 mg iron) tablet extended release 142 mg PO BID melatonin 5 mg tablet 10 mg PO HS PRN (Reason: Sleep) bupropion HCl 300 mg tablet extended release 24 hr 300 mg PO DAILY Qty: 30 1RF escitalopram oxalate 20 mg tablet 20 mg PO DAILY Qty: 30 1RF hydroxyzine pamoate [Vistaril] 25 mg capsule 25 mg PO BID PRN (Reason: for increased anxiety) Qty: 60 0RF albuterol sulfate 90 mcg/actuation HFA aerosol inhaler 2 inh inhalation Q6H PRN (Reason: shortness of breath or wheezing) 90 Days Qty: 8.5 3RF mecobalamin (vitamin B12) 1,000 mcg tablet,disintegrating 1,000 mcg SUBLINGUAL DAILY Qty: 90 3RF amlodipine 10 mg tablet 10 mg PO DAILY Qty: 90 2RF Rx Instructions: TAKE ONE TABLET BY MOUTH EVERY DAY oxybutynin chloride 10 MG tablet extended release 24hr 10 mg PO DAILY fluticasone propion-salmeterol [Advair Diskus] 250-50 mcg/dose blister with device 1 inh INHALATION BID hydroxyzine pamoate [Vistaril] 50 mg capsule 50 mg PO .COMPLEX Rx Instructions: 50 mg PO daily in the morning; bisoprolol fumarate 5 mg tablet See Rx Instructions .ROUTE .COMPLEX Rx Instructions: TAKE ONE TABLET BY MOUTH EVERY DAY pramipexole 0.25 mg tablet 0.25 mg PO HS modafinil [Provigil] 100 mg tablet 100 mg PO AM Rx Instructions: Take one tablet (100mg) qAM prior to 8am x 2 weeks. If no intolerance and persistant hypersomnia, may increase to 2 tablets (200mg) qAM Referrals Follow up/Referrals: Jj Livingston MD [Primary Care Provider] - See instructions Activity Restrictions/Add. Instructions Additional Instructions/Restrictions: Start Tamiflu today if you are going to take it. Discussed risk and possible benefits. Lots of rest Increase Fluids water, Gatorade, powerade, pedialyte,if infant/toddler/child Alternate Tylenol and / or ibuprofen as discussed for fever, aches, chills Follow up IMMEDIATELY with your family doctor for new or worsening Symptoms OR no noticeable improvement over the next 48-72 hours, 911 for difficulty or breathing You or your child area contagious until no fever, aches, chills for 24 hours with medication for symptoms Help Prevent the spread of influenza: ?Wash your hands often. Use soap and water. Wash your hands after you use the bathroom, change a child's diapers, or sneeze. Wash your hands before you prepare or eat food. Use gel hand cleanser that has 60% alcohol, when soap and water are not available. Do not touch your eyes, nose, or mouth unless you have washed your hands first. Cover your mouth when you sneeze or cough. Cough into a tissue or the bend of your arm. If you use a tissue, throw it away immediately and wash your hands. Clean shared items with a germ-killing cutch cleaner. Clean table surfaces, doorknobs, and light switches. Do not share towels, silverware, and dishes with people who are sick. Wash bed sheets, towels, silverware, and dishes with soap and water. Wear a mask over your mouth and nose if you are sick. The face mask may help protect others from becoming infected with the flu. Wear the mask when in common areas of your home or if you seek care with a healthcare provider. Stay away from others if you are sick. Stay at home until 24 hours after your fever and symptoms are gone. Clinical Impressions Clinical Impression: Flu-like symptoms Instructions Patient Instructions: DI for Influenza -- Adult, Influenza Discharge ED Provider: Vera Roman
[2022-09-12 18:25] VITALS: BP 127/85; PULSE 68; RESP 18; TEMP 36.9; O2SAT 97
== END 2022-09-12 18:25 | disposition home or self-care (01) ==
PROVIDERS: Emergency Provider Nurse Practitioner; PCP Emergency Medicine
DX: R68.89 Other general symptoms and signs (principal)
CPT/HCPCS: 99212; G0463

== ENCOUNTER 2022-10-30 16:42 | Emergency (ER) | payer MEDICARE, MEDICAID, SELFPAY ==
[2022-10-30 16:54] VITALS: BP 170/89; PULSE 85; RESP 18; TEMP 36.8; O2SAT 96; BMI 53.1
--- NOTE | 2022-10-30 17:19 | EXP.UTC ---
Discharge Plan Disposition Patient Disposition: Still a Patient Condition: Fair Chief Complaint: Skin/Abscess/Foreign Body Prescriptions Prescriptions: No Action selenium 100 mcg tablet 100 mcg PO DAILY biotin 1 mg capsule 1 mg PO DAILY Slow Fe 142 mg (45 mg iron) tablet extended release 142 mg PO BID melatonin 5 mg tablet 10 mg PO HS PRN (Reason: Sleep) bupropion HCl 300 mg tablet extended release 24 hr 300 mg PO DAILY Qty: 30 1RF escitalopram oxalate 20 mg tablet 20 mg PO DAILY Qty: 30 1RF albuterol sulfate 90 mcg/actuation HFA aerosol inhaler 2 inh inhalation Q6H PRN (Reason: shortness of breath or wheezing) 90 Days Qty: 8.5 3RF mecobalamin (vitamin B12) 1,000 mcg tablet,disintegrating 1,000 mcg SUBLINGUAL DAILY Qty: 90 3RF amlodipine 10 mg tablet 10 mg PO DAILY Qty: 90 2RF Rx Instructions: TAKE ONE TABLET BY MOUTH EVERY DAY oxybutynin chloride 10 MG tablet extended release 24hr 10 mg PO DAILY fluticasone propion-salmeterol [Advair Diskus] 250-50 mcg/dose blister with device 1 inh INHALATION BID hydroxyzine pamoate [Vistaril] 50 mg capsule 50 mg PO .COMPLEX Rx Instructions: 50 mg PO daily in the morning; bisoprolol fumarate 5 mg tablet See Rx Instructions .ROUTE .COMPLEX Rx Instructions: TAKE ONE TABLET BY MOUTH EVERY DAY pramipexole 0.25 mg tablet 0.25 mg PO HS modafinil [Provigil] 100 mg tablet 100 mg PO AM Rx Instructions: Take one tablet (100mg) qAM prior to 8am x 2 weeks. If no intolerance and persistant hypersomnia, may increase to 2 tablets (200mg) qAM Referrals Follow up/Referrals: Jj Livingston MD [Primary Care Provider] - See instructions Activity Restrictions/Add. Instructions Additional Instructions/Restrictions: Drink plenty of fluids. Take tylenol or ibuprofen for pain or fever. Take the medications as directed. Follow up with your regular doctor. GO TO THE ER FOR ANY WORSENING SYMPTOMS Clinical Impressions Clinical Impression: Cellulitis of buttock, left, Cellulitis of buttock, right Instructions Patient Instructions: DI for Skin Abscess Discharge ED Provider: Harish Benedict [facility] General Chief complaint: Skin/Abscess/Foreign Body Stated complaint: Pain in both hip and hot to touch Mode of Arrival: Ambulatory Source of Information: Patient Limitations: No Limitations Time Seen by Provider: 10/30/22 17:19 Description of Symptoms (Recalled from Triage Doc. by RN): PT REPORTS CELLULITIS TO BILATERAL BUTTOCKS. History of Present Illness Provider Complaint: She states that since last night she has had worsening pain and redness of the skin of both her hips. She denies documented fever, but she states that she has had chilling all day today. She has became nauseated and states that her chilling is getting worse. She denies being a diabetic. Related Data Home Medications Medication Instructions Recorded Confirmed oxybutynin chloride 10 mg 10 mg PO DAILY overactive bladder 06/29/21 10/30/22 tablet,extended release 24 hr ferrous sulfate 142 mg (45 mg 142 mg PO BID Diet supplement 10/11/21 07/27/22 iron) tablet,extended release (Slow Fe) biotin 1 mg capsule 1 mg PO DAILY Supplement 11/30/21 07/27/22 selenium 100 mcg tablet 100 mcg PO DAILY Supplement 11/30/21 07/27/22 melatonin 5 mg tablet 10 mg PO HS PRN Sleep 01/02/22 07/27/22 bisoprolol fumarate 5 mg tablet See Rx Instructions .Route 07/27/22 10/30/22 .COMPLEX HTN fluticasone 250 mcg-salmeterol 50 1 inh inhalation BID allergies 07/27/22 10/30/22 mcg/dose blistr powdr for inhalation (Advair Diskus) hydroxyzine pamoate 50 mg capsule 50 mg PO .COMPLEX Anxiety 07/27/22 10/30/22 (Vistaril) modafinil 100 mg tablet (Provigil) 100 mg PO AM stimulant 07/27/22 10/30/22 pramipexole 0.25 mg tablet 0.25 mg PO HS RLS 07/27/22 10/30/22 Previous Rx's Medication Instruction
[2022-10-30 17:20] VITALS: BP 170/89; PULSE 85; RESP 20; TEMP 36.8; O2SAT 96; BMI 53.1
[2022-10-30 17:54] VITALS: BP 153/131; PULSE 85; RESP 18; TEMP 36.8; O2SAT 96; BMI 53.1
--- NOTE | 2022-10-30 17:57 | PC.NURSE ---
DR CARLOS AT BEDSIDE FOR EVALUATION
--- NOTE | 2022-10-30 18:03 | HMH.EDGENADL ---
Discharge Plan Disposition Patient Disposition: Home, Self-Care Condition: Fair Prescriptions Prescriptions: New ondansetron [ondansetron] 4 mg tablet,disintegrating 4 mg PO TIDP PRN (Reason: Nausea) Qty: 10 0RF sulfamethoxazole-trimethoprim [Bactrim DS] 800-160 mg tablet 1 tab PO BID 10 Days Qty: 20 0RF ondansetron [ondansetron] 4 mg tablet,disintegrating 4 mg PO TIDP PRN (Reason: Nausea) Qty: 10 0RF No Action selenium 100 mcg tablet 100 mcg PO DAILY biotin 1 mg capsule 1 mg PO DAILY Slow Fe 142 mg (45 mg iron) tablet extended release 142 mg PO BID melatonin 5 mg tablet 10 mg PO HS PRN (Reason: Sleep) bupropion HCl 300 mg tablet extended release 24 hr 300 mg PO DAILY Qty: 30 1RF escitalopram oxalate 20 mg tablet 20 mg PO DAILY Qty: 30 1RF albuterol sulfate 90 mcg/actuation HFA aerosol inhaler 2 inh inhalation Q6H PRN (Reason: shortness of breath or wheezing) 90 Days Qty: 8.5 3RF mecobalamin (vitamin B12) 1,000 mcg tablet,disintegrating 1,000 mcg SUBLINGUAL DAILY Qty: 90 3RF amlodipine 10 mg tablet 10 mg PO DAILY Qty: 90 2RF Rx Instructions: TAKE ONE TABLET BY MOUTH EVERY DAY oxybutynin chloride 10 MG tablet extended release 24hr 10 mg PO DAILY fluticasone propion-salmeterol [Advair Diskus] 250-50 mcg/dose blister with device 1 inh INHALATION BID hydroxyzine pamoate [Vistaril] 50 mg capsule 50 mg PO .COMPLEX Rx Instructions: 50 mg PO daily in the morning; bisoprolol fumarate 5 mg tablet See Rx Instructions .ROUTE .COMPLEX Rx Instructions: TAKE ONE TABLET BY MOUTH EVERY DAY pramipexole 0.25 mg tablet 0.25 mg PO HS modafinil [Provigil] 100 mg tablet 100 mg PO AM Rx Instructions: Take one tablet (100mg) qAM prior to 8am x 2 weeks. If no intolerance and persistant hypersomnia, may increase to 2 tablets (200mg) qAM Referrals Follow up/Referrals: Jj Livingston MD [Primary Care Provider] - See instructions Activity Restrictions/Add. Instructions Additional Instructions/Restrictions: Drink plenty of fluids. Take tylenol or ibuprofen for pain or fever. Take the medications as directed. Follow up with your regular doctor. GO TO THE ER FOR ANY WORSENING SYMPTOMS Clinical Impressions Clinical Impression: Erysipelas of both lower extremities Instructions Patient Instructions: DI for Erysipelas Discharge ED Provider: Harish Benedict General Adult HPI General Chief complaint: Skin/Abscess/Foreign Body Stated complaint: Pain in both hip and hot to touch Time Seen by Provider: 10/30/22 17:19 Mode of Arrival: Ambulatory Source of Information: Patient Limitations: No Limitations Description of Symptoms (Recalled from ER Triage Doc. by RN): PT REPORTS CELLULITIS ON BILATERAL BUTTOCKS History of Present Illness HPI narrative: Patient is a 57-year-old female with substantial past medical history of sinus bradycardia, obesity, hypertension, asthma who presents with concern for redness on bilateral buttocks. She says that she had something similar happen a few years ago and she was diagnosed with cellulitis and placed on clindamycin. She says that this started yesterday and got worse overnight. She says that it feels warm. She does endorse a little bit of chills last night but denies any fevers. Denies any lightheadedness or dizziness. Denies any shortness of breath. Denies any cough. Denies any weeping from the wounds. Related Data Home Medications Medication Instructions Recorded Confirmed oxybutynin chloride 10 mg 10 mg PO DAILY overactive bladder 06/29/21 10/30/22 tablet,extended release 24 hr ferrous sulfate 142 mg (45 mg 142 mg PO BID Diet supplement 10/11/21 07/27/22 iron) tablet,extended release (Slow Fe) biotin 1 mg capsule 1 mg PO DAILY Supplement 11/30/21 07/27/22 selenium 100 mcg tablet 100 mcg PO DAILY Supplement 11/30/21
[2022-10-30 18:12] VITALS: BP 110/63; PULSE 70; RESP 18; TEMP 37; O2SAT 98
== END 2022-10-30 18:15 | disposition home or self-care (01) ==
LOC: ER 16:54 → UTC 16:56 → ER 17:48
PROVIDERS: Emergency Provider Student in an Organized Health Care Education/Training Program; PCP Emergency Medicine
DX: A46 Erysipelas (principal); M25.551 Pain in right hip; M25.552 Pain in left hip; Z86.79 Personal history of other diseases of the circulatory system; I10 Essential (primary) hypertension; E66.9 Obesity, unspecified; Z86.16 Personal history of COVID-19; F33.9 Major depressive disorder, recurrent, unspecified; J45.30 Mild persistent asthma, uncomplicated; I45.10 Unspecified right bundle-branch block; Z98.84 Bariatric surgery status; Z90.710 Acquired absence of both cervix and uterus; Z83.3 Family history of diabetes mellitus; Z80.9 Family history of malignant neoplasm, unspecified; Z82.49 Family history of ischemic heart disease and other diseases of the circulatory system
CPT/HCPCS: 99283; 99284

== ENCOUNTER 2022-11-01 11:14 | Emergency (ER) | payer MEDICARE, MEDICAID, SELFPAY ==
--- NOTE | 2022-11-01 11:22 | PC.NURSE ---
DR. MAYEN AT BEDSIDE FOR EVALUATION
[2022-11-01 11:25] VITALS: BP 130/59; PULSE 60; RESP 17; TEMP 36.7; O2SAT 95; BMI 53.1
[2022-11-01 11:50] LABS: Basophils # 0.1 K/mm3 (0-0.2); Basophils % 0.6 % (0.1-2.0); Eosinophils # 0.1 K/mm3 (0.0-0.4); Hematocrit 47.4 % (37.0-47.0); Hemoglobin 15.9 g/dL (12.2-16.2); Lymphocytes # 2.1 K/mm3 (0.7-4.5); Lymphocytes % 20.5 % (10-50); Mean Corpuscular HGB Conc 33.6 g/dL (31.8-35.4); Mean Corpuscular Hemoglobin 28.9 pg (27.0-31.2); Mean Platelet Volume 9.1 fl (7.4-10.4); Monocytes # 0.4 K/mm3 (0.1-1.0); Monocytes % 4.1 % (1.7-9.3); Neutrophils # 7.5 K/mm3 (1.8-7.8); Neutrophils % 73.7 % (37.0-80.0); Platelet Count 175 K/mm3 (142-424); Red Blood Count 5.52 M/mm3 (4.20-5.40); Red Cell Distribution Width 14.5 % (11.5-17.5); White Blood Count 10.1 K/mm3 (4.8-10.8)
--- NOTE | 2022-11-01 11:57 | HMH.EDGENADL ---
Discharge Plan Disposition Patient Disposition: Home, Self-Care Prescriptions Prescriptions: New cephalexin 500 mg capsule 500 mg PO Q6H 7 Days Qty: 28 0RF No Action selenium 100 mcg tablet 100 mcg PO DAILY biotin 1 mg capsule 1 mg PO DAILY Slow Fe 142 mg (45 mg iron) tablet extended release 142 mg PO BID melatonin 5 mg tablet 10 mg PO HS PRN (Reason: Sleep) bupropion HCl 300 mg tablet extended release 24 hr 300 mg PO DAILY Qty: 30 1RF escitalopram oxalate 20 mg tablet 20 mg PO DAILY Qty: 30 1RF albuterol sulfate 90 mcg/actuation HFA aerosol inhaler 2 inh inhalation Q6H PRN (Reason: shortness of breath or wheezing) 90 Days Qty: 8.5 3RF mecobalamin (vitamin B12) 1,000 mcg tablet,disintegrating 1,000 mcg SUBLINGUAL DAILY Qty: 90 3RF amlodipine 10 mg tablet 10 mg PO DAILY Qty: 90 2RF Rx Instructions: TAKE ONE TABLET BY MOUTH EVERY DAY oxybutynin chloride 10 MG tablet extended release 24hr 10 mg PO DAILY ondansetron [ondansetron] 4 mg tablet,disintegrating 4 mg PO TIDP PRN (Reason: Nausea) Qty: 10 0RF fluticasone propion-salmeterol [Advair Diskus] 250-50 mcg/dose blister with device 1 inh INHALATION BID hydroxyzine pamoate [Vistaril] 50 mg capsule 50 mg PO .COMPLEX Rx Instructions: 50 mg PO daily in the morning; bisoprolol fumarate 5 mg tablet See Rx Instructions .ROUTE .COMPLEX Rx Instructions: TAKE ONE TABLET BY MOUTH EVERY DAY pramipexole 0.25 mg tablet 0.25 mg PO HS modafinil [Provigil] 100 mg tablet 100 mg PO AM Rx Instructions: Take one tablet (100mg) qAM prior to 8am x 2 weeks. If no intolerance and persistant hypersomnia, may increase to 2 tablets (200mg) qAM sulfamethoxazole-trimethoprim [Bactrim DS] 800-160 mg tablet 1 tab PO BID Referrals Follow up/Referrals: Jj Livingston MD [Primary Care Provider] - See instructions Activity Restrictions/Add. Instructions Additional Instructions/Restrictions: Return for chills vomiting worsening pain or any other concerns within the next 8 hours. Otherwise follow-up in the next few days with your primary care physician. Clinical Impressions Clinical Impression: Erysipelas Instructions Patient Instructions: Cellulitis Discharge ED Provider: Will Blake General Adult HPI General Chief complaint: Skin/Abscess/Foreign Body Stated complaint: rash on hip to hip, on legs Time Seen by Provider: 11/01/22 11:20 Mode of Arrival: Ambulatory Source of Information: Patient Limitations: No Limitations Description of Symptoms (Recalled from ER Triage Doc. by RN): PT WITH RED PAINFUL RASH TO BILATERAL BUTTOCKS THAT BEGAN ON SATURDAY History of Present Illness HPI narrative: 57-year-old female with history of hypertension, smoking presents with spread of rash. She has no fever or chills. No abdominal pain or pelvis pain. She was evaluated in the emergency room 2 days ago and started on Bactrim for treatment of erysipelas. Since that time the rash has spread slowly. She denies vomiting or diarrhea or any other systemic symptoms Related Data Home Medications Medication Instructions Recorded Confirmed oxybutynin chloride 10 mg 10 mg PO DAILY overactive bladder 06/29/21 11/01/22 tablet,extended release 24 hr ferrous sulfate 142 mg (45 mg 142 mg PO BID Diet supplement 10/11/21 11/01/22 iron) tablet,extended release (Slow Fe) biotin 1 mg capsule 1 mg PO DAILY Supplement 11/30/21 11/01/22 selenium 100 mcg tablet 100 mcg PO DAILY Supplement 11/30/21 11/01/22 melatonin 5 mg tablet 10 mg PO HS PRN Sleep 01/02/22 11/01/22 bisoprolol fumarate 5 mg tablet See Rx Instructions .Route 07/27/22 11/01/22 .COMPLEX HTN fluticasone 250 mcg-salmeterol 50 1 inh inhalation BID allergies 07/27/22 11/01/22 mcg/dose blistr powdr for inhalation (Advair Diskus) hydroxyzine pamoate 50 mg capsule 50 mg PO .COMPLEX Anxiety 07/27/22 11/01/22
[2022-11-01 12:01] VITALS: BP 115/57; PULSE 55; RESP 18; O2SAT 96
[2022-11-01 12:06] LABS: Chloride 101 mmol/L (98-107); Potassium 3.2 mmoL/L (3.5-5.1); Sodium 137 mmol/L (136-145)
[2022-11-01 12:09] LABS: Alanine Aminotransferase 19 U/L (12-78); Albumin Level 3.8 g/dl (3.5-5.0); Albumin/Globulin Ratio 1.1 (1.1-1.8); Alkaline Phosphatase 116 U/L (38-126); Anion Gap 11.2 mEq/L (5-15); Aspartate Amino Transferase 35 U/L (14-36); Bilirubin,Total 1.2 mg/dl (0.2-1.3); Blood Urea Nitrogen 18 mg/dl (7-17); Calcium 8.8 mg/dl (8.4-10.2); Carbon Dioxide 28 mmol/L (22.0-30.0); Creatinine Clearance Estimated 46 mL/min (50-200); Estimated Glomerular Filt Rate 51 ml/min (>60); GFR (African American) 62 ML/MIN (>60); Globulin 3.6 g/dL (1.3-3.2); Glucose 125 mg/dl (74-100); Lactic Acid 1.8 mmol/L (0.7-2.1); Total Protein,Serum 7.4 g/dl (6.3-8.2)
[2022-11-01 12:15] LABS: C-Reactive Protein 314.4 mg/L (0-4)
[2022-11-01 12:31] VITALS: BP 120/60; PULSE 52; O2SAT 96
--- NOTE | 2022-11-01 12:45 | PC.NURSE ---
DR MAYEN AT BEDSIDE TO REEVALUATE PT
--- NOTE | 2022-11-01 12:48 | PC.NURSE ---
DR. HURST UPDATING PT'S FAMILY
[2022-11-01 13:00] VITALS: BP 120/60; PULSE 60; RESP 17; TEMP 36.4; O2SAT 95
== END 2022-11-01 13:00 | disposition home or self-care (01) ==
PROVIDERS: Emergency Provider Emergency Medicine; PCP Emergency Medicine
DX: A46 Erysipelas (principal); I10 Essential (primary) hypertension; J45.909 Unspecified asthma, uncomplicated; F33.9 Major depressive disorder, recurrent, unspecified; Z86.16 Personal history of COVID-19; Z98.84 Bariatric surgery status; I45.10 Unspecified right bundle-branch block; Z90.710 Acquired absence of both cervix and uterus; Z83.3 Family history of diabetes mellitus; Z80.9 Family history of malignant neoplasm, unspecified; Z82.49 Family history of ischemic heart disease and other diseases of the circulatory system; Z82.3 Family history of stroke
CPT/HCPCS: 80053; 83605; 85025; 86140; 96360; 99285

== ENCOUNTER → 2022-11-06 12:00 | Outpatient (CLI) | payer MEDICARE, MEDICAID, SELFPAY | PROVIDERS: PCP Emergency Medicine; Visit Provider Student in an Organized Health Care Education/Training Program | DX: J02.9 Acute pharyngitis, unspecified (principal) | CPT/HCPCS: 87070 ==

== ENCOUNTER → 2022-11-27 15:21 | Outpatient (CLI) | payer MEDICARE, MEDICAID, SELFPAY | PROVIDERS: PCP Family Medicine; Visit Provider Family Medicine | DX: N39.41 Urge incontinence (principal) | CPT/HCPCS: 87086 ==

== ENCOUNTER → 2022-11-29 13:49 | Outpatient (CLI) | payer MEDICARE, MEDICAID, SELFPAY ==
--- NOTE | 2022-11-29 13:52 | XR_ITS ---
FINAL REPORT CLINICAL HISTORY: pain left hip FINDINGS: Left hip Four views were obtained. There is no acute fracture or dislocation. Patient is status post left hip arthroplasty. No soft tissue abnormality is identified. IMPRESSION: No acute process. Reviewed, Interpreted and Dictated by Deep Rice III, MD Transcribed by Peace White Authenticated and [facility]
== END ==
PROVIDERS: PCP Family Medicine; Visit Provider Family Medicine
DX: M25.552 Pain in left hip (principal)
CPT/HCPCS: 73502

== ENCOUNTER → 2022-11-30 15:55 | Outpatient (CLI) | payer MEDICARE, MEDICAID, SELFPAY ==
[2022-11-30 16:23] LABS: Basophils # 0.1 K/mm3 (0-0.2); Basophils % 1.9 % (0.1-2.0); Eosinophils # 0.3 K/mm3 (0.0-0.4); Eosinophils % 3.9 % (0.1-12.0); Hematocrit 47.7 % (37.0-47.0); Hemoglobin 15.4 g/dL (12.2-16.2); Lymphocytes # 2.6 K/mm3 (0.7-4.5); Lymphocytes % 34.7 % (10-50); Mean Corpuscular HGB Conc 32.2 g/dL (31.8-35.4); Mean Corpuscular Hemoglobin 28.6 pg (27.0-31.2); Mean Platelet Volume 8.3 fl (7.4-10.4); Monocytes # 0.4 K/mm3 (0.1-1.0); Neutrophils # 4.1 K/mm3 (1.8-7.8); Neutrophils % 54.6 % (37.0-80.0); Platelet Count 205 K/mm3 (142-424); Red Blood Count 5.36 M/mm3 (4.20-5.40); Red Cell Distribution Width 15.3 % (11.5-17.5); White Blood Count 7.4 K/mm3 (4.8-10.8)
[2022-11-30 16:39] LABS: Chloride 106 mmol/L (98-107); Sodium 140 mmol/L (136-145)
[2022-11-30 16:40] LABS: Potassium 4.7 mmoL/L (3.5-5.1)
[2022-11-30 16:42] LABS: Alanine Aminotransferase 17 U/L (12-78); Albumin Level 4.3 g/dl (3.5-5.0); Albumin/Globulin Ratio 1.2 (1.1-1.8); Alkaline Phosphatase 135 U/L (38-126); Anion Gap 11.7 mEq/L (5-15); Aspartate Amino Transferase 31 U/L (14-36); Bilirubin,Total 0.9 mg/dl (0.2-1.3); Blood Urea Nitrogen 14 mg/dl (7-17); Carbon Dioxide 27 mmol/L (22.0-30.0); Estimated Glomerular Filt Rate 64 ml/min (>60); GFR (African American) 78 ML/MIN (>60); Globulin 3.5 g/dL (1.3-3.2); Glucose 110 mg/dl (74-100); Total Protein,Serum 7.8 g/dl (6.3-8.2)
== END ==
PROVIDERS: PCP Family Medicine; Visit Provider Family Medicine
DX: A49.9 Bacterial infection, unspecified (principal); N39.0 Urinary tract infection, site not specified; L88 Pyoderma gangrenosum
CPT/HCPCS: 36415; 80053; 85025

== ENCOUNTER 2023-01-02 08:00 | Outpatient (RCR) | payer MEDICARE, MEDICAID, SELFPAY ==
--- NOTE | 2023-01-02 09:08 | HMH.PTOPWND ---
Rehab Outpt Wound Evaluation Rehab OP Wound Evaluation Start: 01/02/23 08:06 Freq: Status: Active Protocol: Document 01/02/23 08:40 GREGORY (Rec: 01/02/23 09:08 PHOWINNIE [id number]) E-signed By Christo Mendoza, PT Subjective/History History History This is the initial PT eval for Vianca Sepulveda 57 yowf who presents with c/o B LE edema x ~ 6 mos with insidious onset of symptoms. She reports the worst edema is in the lower legs, just above the ankle, and is associated with significant pain and tenderness to palpation. She reports she has also had some clear fluid that weeps from the legs intermittently as well. She has no c/o numbness or tingling. She has hx of Asthma, HTN, Depression, morbid obesity, L CORDELIA, bariatric surgery, x 3, BRIDGETTE, R carpal tunnel release, cellulitis of buttocks recently x 3. 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 Subjective Subjective She reports 0/10 pain currently, and 10/10 pain at the worst. She presents with 2 + pitting edema to the gaiter areas on B LE with mild skin color changes and no tendernes to palpation at this time. Moderate superficial varicosities noted. Lymphedema Eval Classification of Lymphedema Secondary Lymphedema Yes: CVI also Stemmer's sign Stemmer's Sign no Stage of Lymphedema Lymphedema stages Stage II (Pitting edema, increased fibrosis w/ decreased pitting) Skin Changes Dry Skin Yes Skin Folds Yes Redness Yes Wounds Yes Discoloration of Skin Y
== END 2023-01-02 08:05 | disposition home or self-care (01) ==
LOC: PT 08:00
PROVIDERS: PCP Family Medicine; Visit Provider Nurse Practitioner Family
DX: R60.0 Localized edema (principal)
CPT/HCPCS: 97163

== ENCOUNTER → 2023-05-22 14:56 | Outpatient (CLI) | payer MEDICARE, MEDICAID, SELFPAY | PROVIDERS: PCP Nurse Practitioner Family; Visit Provider Nurse Practitioner Family | DX: N39.41 Urge incontinence (principal); B96.29 Other Escherichia coli [E. coli] as the cause of diseases classified elsewhere | CPT/HCPCS: 87086; 87088; 87186 ==

== ENCOUNTER → 2023-06-18 09:46 | Outpatient (CLI) | payer MEDICARE, MEDICAID, SELFPAY ==
[2023-06-18 10:15] VITALS: PULSE 37; PULSE 38
== END ==
PROVIDERS: PCP Nurse Practitioner Family; Visit Provider Internal Medicine Pulmonary Disease
DX: R06.02 Shortness of breath (principal)
CPT/HCPCS: 94060; 94640

== ENCOUNTER 2023-07-11 18:46 | Emergency (ER) | payer MEDICARE, MEDICAID, SELFPAY ==
[2023-07-11 18:50] VITALS: BP 157/87; PULSE 73; RESP 20; TEMP 36.6; O2SAT 96; BMI 59.3
--- NOTE | 2023-07-11 19:04 | EXP.UTC ---
Discharge Plan Disposition Patient Disposition: Still a Patient Condition: Good Prescriptions Prescriptions: No Action selenium 100 mcg tablet 100 mcg PO DAILY biotin 1 mg capsule 1 mg PO DAILY ketoconazole 2 % cream 1 applic topical DAILY Patient Comments: APPLY TOPICALLY TO THE AFFECTED AREA(S) EVERY MORNING hydrocortisone 2.5 % ointment 1 applic topical DAILY Patient Comments: APPLY TOPICALLY TO THE AFFECTED AREA(S) EVERY EVENING fluticasone propion-salmeterol [Advair Diskus] 250-50 mcg/dose blister with device 1 inh inhalation BID 90 Days Qty: 180 3RF fluticasone propionate [Flonase Allergy Relief] 50 mcg/actuation spray,suspension 1 spray intranasal DAILY 90 Days Qty: 16 2RF Rx Instructions: administer into each nostril bupropion HCl 300 mg tablet extended release 24 hr 300 mg PO DAILY Qty: 30 2RF escitalopram oxalate 20 mg tablet 20 mg PO DAILY Qty: 30 2RF hydroxyzine pamoate [Vistaril] 50 mg capsule 50 mg PO .COMPLEX Qty: 30 2RF Rx Instructions: 50 mg PO daily in the morning; Slow Fe 142 mg (45 mg iron) tablet extended release 142 mg PO BID melatonin 5 mg tablet 10 mg PO HS modafinil 200 mg tablet 200 mg PO DAILY Qty: 30 5RF pramipexole 0.25 mg tablet 0.25 mg PO HS 30 Days Qty: 30 5RF mecobalamin (vitamin B12) 1,000 mcg tablet,disintegrating 1,000 mcg SUBLINGUAL DAILY Qty: 90 3RF amlodipine 10 mg tablet 10 mg PO DAILY Qty: 90 2RF Rx Instructions: TAKE ONE TABLET BY MOUTH EVERY DAY bisoprolol fumarate 5 mg tablet See Rx Instructions .ROUTE .COMPLEX Qty: 90 1RF Dose Instruction: TAKE ONE TABLET BY MOUTH EVERY DAY Rx Instructions: TAKE ONE TABLET BY MOUTH EVERY DAY cetirizine 10 mg tablet See Rx Instructions .ROUTE .COMPLEX Qty: 90 0RF Dose Instruction: TAKE ONE TABLET BY MOUTH EVERY DAY FOR FOR ALLERGY symptoms Rx Instructions: TAKE ONE TABLET BY MOUTH EVERY DAY FOR FOR ALLERGY symptoms Mounjaro 2.5 mg/0.5 mL pen injector 2.5 mg SQ WEEKLY 28 Days Qty: 2 0RF ondansetron 8 mg tablet,disintegrating 8 mg PO Q8H PRN (Reason: nausea and vomiting) Qty: 30 0RF Myrbetriq 50 mg tablet extended release 24 hr See Rx Instructions .ROUTE .COMPLEX Qty: 30 5RF Dose Instruction: TAKE ONE TABLET BY MOUTH EVERY DAY Rx Instructions: TAKE ONE TABLET BY MOUTH EVERY DAY oxybutynin chloride 10 MG tablet extended release 24hr 10 mg PO DAILY Referrals Follow up/Referrals: Clifton Mullins APRN [Primary Care Provider] - See instructions Discharge ED Provider: Vera Roman [facility] [place] General Stated complaint: upper abd pain Mode of Arrival: Ambulatory Source of Information: Patient Limitations: No Limitations Time Seen by Provider: 07/11/23 19:04 Description of Symptoms (Recalled from Triage Doc. by RN): PATIENT C/O MID EPIGASTRIC PAIN THAT STARTED LAST SATURDAY. SHE ALSO REPORTS NAUSEA AND VOMITING WITH EATING HEENT Symptoms (Recalled from RN notes): No Resp Symptoms (Recalled from RN notes): No Skin Symptoms (Recalled from RN notes): No MS Symptoms (Recalled from RN notes): No Functional Status (Recalled from RN notes): WNL History of Present Illness Provider Complaint: Patient states that last she started having pain in her upper abdomen that was worse when she would eat something or bend over States that she thought it was gas States that she took gas x and it didnt help then she started having N/V after eating and hasnt been able to eat much but the pain has continued and not got any better or not got any worse but has been constant States that it is still in her mid to upper abdomen in the middle and at times feels like a stabbing pain and she took zofran for her nausea but not helped much so this evening when she was still having the pain she came in to get it checked out States that she hasnt had any vomiting today but has slim
--- NOTE | 2023-07-11 19:29 | ECG_ITS ---
APPROVED REPORT Exam: Resting ECG HR:59 bpm ECG Measurements Heart Rate 59 AXES OK 136 P 13 QRSd 130 QRS -36 QT 426 T 7 QTc 426 Conclusion SINUS BRADYCARDIA LEFT AXIS DEVIATION [QRS AXIS < -30] RIGHT BUNDLE BRANCH BLOCK [120+ ms QRS DURATION, UPRIGHT V1, 40+ ms S IN I/aVL/V4/V5/V6] ABNORMAL ECG UNCONFIRMED REPORT Electronically signed by : Balta Hernandez MD 07/13/2023 08:00:33
--- NOTE | 2023-07-11 19:33 | HMH.EDGENADL ---
Discharge Plan Disposition Patient Disposition: Home, Self-Care Condition: Good Prescriptions Prescriptions: New omeprazole magnesium 20 mg capsule,delayed release(DR/EC) 20 mg PO DAILY Qty: 20 0RF No Action selenium 100 mcg tablet 100 mcg PO DAILY biotin 1 mg capsule 1 mg PO DAILY ketoconazole 2 % cream 1 applic topical DAILY Patient Comments: APPLY TOPICALLY TO THE AFFECTED AREA(S) EVERY MORNING hydrocortisone 2.5 % ointment 1 applic topical DAILY Patient Comments: APPLY TOPICALLY TO THE AFFECTED AREA(S) EVERY EVENING fluticasone propion-salmeterol [Advair Diskus] 250-50 mcg/dose blister with device 1 inh inhalation BID 90 Days Qty: 180 3RF fluticasone propionate [Flonase Allergy Relief] 50 mcg/actuation spray,suspension 1 spray intranasal DAILY 90 Days Qty: 16 2RF Rx Instructions: administer into each nostril bupropion HCl 300 mg tablet extended release 24 hr 300 mg PO DAILY Qty: 30 2RF escitalopram oxalate 20 mg tablet 20 mg PO DAILY Qty: 30 2RF hydroxyzine pamoate [Vistaril] 50 mg capsule 50 mg PO .COMPLEX Qty: 30 2RF Rx Instructions: 50 mg PO daily in the morning; Slow Fe 142 mg (45 mg iron) tablet extended release 142 mg PO BID melatonin 5 mg tablet 10 mg PO HS modafinil 200 mg tablet 200 mg PO DAILY Qty: 30 5RF pramipexole 0.25 mg tablet 0.25 mg PO HS 30 Days Qty: 30 5RF mecobalamin (vitamin B12) 1,000 mcg tablet,disintegrating 1,000 mcg SUBLINGUAL DAILY Qty: 90 3RF amlodipine 10 mg tablet 10 mg PO DAILY Qty: 90 2RF Rx Instructions: TAKE ONE TABLET BY MOUTH EVERY DAY bisoprolol fumarate 5 mg tablet See Rx Instructions .ROUTE .COMPLEX Qty: 90 1RF Dose Instruction: TAKE ONE TABLET BY MOUTH EVERY DAY Rx Instructions: TAKE ONE TABLET BY MOUTH EVERY DAY cetirizine 10 mg tablet See Rx Instructions .ROUTE .COMPLEX Qty: 90 0RF Dose Instruction: TAKE ONE TABLET BY MOUTH EVERY DAY FOR FOR ALLERGY symptoms Rx Instructions: TAKE ONE TABLET BY MOUTH EVERY DAY FOR FOR ALLERGY symptoms Mounjaro 2.5 mg/0.5 mL pen injector 2.5 mg SQ WEEKLY 28 Days Qty: 2 0RF ondansetron 8 mg tablet,disintegrating 8 mg PO Q8H PRN (Reason: nausea and vomiting) Qty: 30 0RF Myrbetriq 50 mg tablet extended release 24 hr See Rx Instructions .ROUTE .COMPLEX Qty: 30 5RF Dose Instruction: TAKE ONE TABLET BY MOUTH EVERY DAY Rx Instructions: TAKE ONE TABLET BY MOUTH EVERY DAY oxybutynin chloride 10 MG tablet extended release 24hr 10 mg PO DAILY Referrals Follow up/Referrals: Clifton Mullins APRN [Primary Care Provider] - See instructions Nery Trammell MD [Referring] - See instructions Clinical Impressions Clinical Impression: Epigastric abdominal pain Instructions Patient Instructions: DI for Acute Abdominal Pain Discharge ED Provider: Kadeem Pierson Adult HPI General Chief complaint: Abdominal Pain Stated complaint: upper abd pain Time Seen by Provider: 07/11/23 19:04 Mode of Arrival: Ambulatory Source of Information: Patient Limitations: No Limitations Description of Symptoms (Recalled from ER Triage Doc. by RN): PATIENT C/O MID EPIGASTRIC PAIN THAT STARTED LAST SATURDAY. SHE ALSO REPORTS NAUSEA AND VOMITING WITH EATING History of Present Illness HPI narrative: The patient presents with a chief complaint of severe abdominal pain that began a week ago after consuming an alcoholic beverage at a [facility]. The pain has been constant and severe for 3 days, with no relief from medications. The patient denies experiencing nausea or vomiting today but reports sharp pain in the middle of the abdomen. The pain seems to improve when lying back or squeezing the abdomen. 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 The patient has a past medical history of heart palpitations and was previousl
[2023-07-11 19:35] VITALS: BP 164/63; PULSE 61; RESP 13; TEMP 36.9; O2SAT 95; BMI 58.4
--- NOTE | 2023-07-11 19:54 | PC.NURSE ---
in room talking with patient at this time.
[2023-07-11 19:55] LABS: Basophils # 0.1 K/mm3 (0-0.2); Basophils % 1.1 % (0.1-2.0); Eosinophils # 0.2 K/mm3 (0.0-0.4); Eosinophils % 2.6 % (0.1-12.0); Hematocrit 49.6 % (37.0-47.0); Hemoglobin 15.8 g/dL (12.2-16.2); Lymphocytes # 3.1 K/mm3 (0.7-4.5); Mean Corpuscular HGB Conc 31.8 g/dL (31.8-35.4); Mean Corpuscular Hemoglobin 28.5 pg (27.0-31.2); Mean Corpuscular Volume 89.6 fl (81-99); Mean Platelet Volume 8.5 fl (7.4-10.4); Monocytes # 0.4 K/mm3 (0.1-1.0); Monocytes % 5.2 % (1.7-9.3); Neutrophils # 4.6 K/mm3 (1.8-7.8); Neutrophils % 54.2 % (37.0-80.0); Platelet Count 232 K/mm3 (142-424); Red Blood Count 5.54 M/mm3 (4.20-5.40); Red Cell Distribution Width 14.7 % (11.5-17.5); White Blood Count 8.5 K/mm3 (4.8-10.8)
[2023-07-11 20:00] LABS: Alanine Aminotransferase 20 U/L (12-78); Albumin Level 4.4 g/dl (3.5-5.0); Albumin/Globulin Ratio 1.1 (1.1-1.8); Alkaline Phosphatase 105 U/L (38-126); Aspartate Amino Transferase 34 U/L (14-36); Bilirubin,Total 0.5 mg/dl (0.2-1.3); Blood Urea Nitrogen 11 mg/dl (7-17); Calcium 9.5 mg/dl (8.4-10.2); Carbon Dioxide 30 mmol/L (22.0-30.0); Chloride 106 mmol/L (98-107); Creatinine Clearance Estimated 56 mL/min (50-200); Estimated Glomerular Filt Rate 64 ml/min (>60); GFR (African American) 78 ML/MIN (>60); Glucose 88 mg/dl (74-100); Lipase 152 U/L (23-300); Sodium 144 mmol/L (136-145); Total Protein,Serum 8.4 g/dl (6.3-8.2)
[2023-07-11 20:01] VITALS: BP 152/81; PULSE 58; RESP 17; O2SAT 96
[2023-07-11 20:14] LABS: Troponin I < 0.01 ng/ml (0.00-0.034)
[2023-07-11 20:35] VITALS: BP 153/70; PULSE 60; RESP 16; TEMP 36.9; O2SAT 97
== END 2023-07-11 20:36 | disposition home or self-care (01) ==
LOC: UTC 19:20 → ER 19:23
PROVIDERS: Emergency Provider Emergency Medicine; PCP Nurse Practitioner Family
DX: R10.13 Epigastric pain (principal); R94.31 Abnormal electrocardiogram [ECG] [EKG]; J45.909 Unspecified asthma, uncomplicated; I10 Essential (primary) hypertension; F33.9 Major depressive disorder, recurrent, unspecified; F41.1 Generalized anxiety disorder
CPT/HCPCS: 80053; 83690; 84484; 85025; 93005; 99284

== ENCOUNTER → 2023-07-26 10:47 | Outpatient (CLI) | payer MEDICARE, MEDICAID, SELFPAY | PROVIDERS: PCP Emergency Medicine; Visit Provider Physician Assistant | DX: I10 Essential (primary) hypertension (principal); I49.3 Ventricular premature depolarization; R00.2 Palpitations; R60.0 Localized edema | CPT/HCPCS: 93270 ==

== ENCOUNTER → 2023-08-06 14:43 | Outpatient (CLI) | payer MEDICARE, MEDICAID, SELFPAY ==
--- NOTE | 2023-08-06 14:56 | CA_ITS ---
APPROVED REPORT EXAM: Comprehensive 2D, Doppler, and color-flow Echocardiogram Sample Maker Hand: Riri Weber RT(R) Ht: 5 ft 3 in Wt: 325lbs BSA: 2.38 BP: 134/67 mmHg Indications: SOA, palpitations, edema, HTN, h/x COVID. 2D Dimensions LVOT 1.93 cm (M/F) 1.5-2.5 LVEF (Barba's) 45.10 % F: 54 - 74 LV Volume 137.80 mL F: 46 - 106 LV Volume Index 57.90 mL/m2 F: 29 - 61 LA Volume 50.40 mL LA Volume Index 21.18 mL/m2 (M/F) 16-34 M-Mode Dimensions RVDd 2.93 cm (0.9-2.6) LA Diam 3.32 cm (1.9-4.0) LVDd 5.43 cm (3.5-5.7) Ao Diam 2.90 cm (2.0-3.7) LVDs 4.33 cm (3.5-5.7) IVSd 1.06 cm (0.6-1.1) PWd 1.02 cm (0.6-1.1) EF (Teich) 41.00% FS 20.30% EDV (Teich) 143.10 mL ESV (Teich) 84.40 mL LV Diastology E Decel Time 177.00 (160-240 msec) E/A Ratio 0.9 MED E' 10.10 (< 7 cm/sec) E'/MED E' Ratio 8.34 (>14) LAT E' 8.60 (<10 cm/sec) E/LAT E' Ratio 9.79 (>14) Mitral Valve MV E Max Fareed. 84.00 (40-130 cm/s) MV A Velocity 91.00 (40-130 cm/s) E/A Ratio 0.92 MV Decel. Time 177.00 (160-240 ms) MV PHT 52.00 ms Tricuspid Valve TR P. Velocity 309.00 cm/s RAP Estimate 10.00 mmHg RVSP 48.10 mmHg Left Ventricle The left ventricle is normal size. The left ventricular systolic function is normal. The left ventricular ejection fraction is within the normal range. There is increased LV wall thickness. There is normal LV segmental wall motion. Diastolic function is normal. LVEF is 55%. Right Ventricle The right ventricle is normal size. The right ventricular systolic function is normal. Atria The left atrium size is normal. The right atrium size is normal. There is possible interatrial shunt on color Doppler. Aortic Valve The aortic valve is mildly thickened. There is no aortic valvular stenosis. Mild aortic regurgitation. Mitral Valve The mitral valve leaflets are mildly thickened. No evidence of mitral valve stenosis. Mild mitral regurgitation. Tricuspid Valve The tricuspid valve leaflets are thin and pliable. Mild tricuspid regurgitation. RVSP is 40-45 mmHg. Pulmonic Valve The pulmonary valve is normal in structure. Trace pulmonic regurgitation. Great Vessels The aortic root is normal in size. The ascending aorta is normal in size. IVC is normal in size and collapses >50% with inspiration. Pericardium There is no pericardial effusion. Other Information Study Quality: Technically Difficult Conclusion Technically difficult study due to poor acoustic windows. Normal biventricular systolic function. Mild AI, mild MR, mild TR. Electronically signed by : Sachi Rodríguez MD 08/09/2023 21:03:33
== END ==
LOC: RT 14:43
PROVIDERS: PCP Emergency Medicine; Visit Provider Physician Assistant
DX: I10 Essential (primary) hypertension (principal); I49.3 Ventricular premature depolarization; R00.2 Palpitations; R60.0 Localized edema; R94.31 Abnormal electrocardiogram [ECG] [EKG]; R06.09 Other forms of dyspnea
CPT/HCPCS: 93306

== ENCOUNTER → 2023-08-07 16:51 | Outpatient (CLI) | payer MEDICARE, MEDICAID, SELFPAY ==
--- NOTE | 2023-08-07 16:56 | MM_ITS ---
PROCEDURE INFORMATION: Exam: MG Bilateral Screening 3D Mammography Exam date and time: 08/07/2023 4:46 PM Age: 57 years old Clinical indication: Screening examination TECHNIQUE: Imaging protocol: Bilateral Screening tomosynthesis and 2D mammography including computer-aided detection (CAD) when performed. COMPARISON: 1. MG MM DIG SCREENING MAMM BI W/CAD 06/14/2022 4:51 PM 2. MG MM DIG SCREENING MAMM BI W/CAD 05/31/2021 1:46 PM FINDINGS: MAMMOGRAPHY: Breast composition: The breasts are almost entirely fatty. Mass: None. Architectural distortion: None. Calcifications: No suspicious calcifications. Asymmetric density: None. Skin thickening: None. Axillary adenopathy: None. IMPRESSION: No mammographic evidence of malignancy. Annual screening is recommended unless otherwise clinically indicated. The ASSESSMENT: BI-RADS Category 1: Negative
== END ==
PROVIDERS: PCP Emergency Medicine; Visit Provider Emergency Medicine
DX: Z12.31 Encounter for screening mammogram for malignant neoplasm of breast (principal)
CPT/HCPCS: 77063; 77067

== ENCOUNTER 2023-10-16 18:32 | Outpatient (CLI) | payer MEDICARE, MEDICAID, SELFPAY ==
[2023-10-16 18:47] LABS: Coronavirus 19, PCR Not Detected (NotDetected); Influenza A, PCR Not Detected (NotDetected); Influenza B, PCR Not Detected (NotDetected)
== END 2023-10-16 23:59 ==
LOC: LAB.DROPOF 18:33
PROVIDERS: PCP Nurse Practitioner Family; Visit Provider Nurse Practitioner Family
DX: Z20.822 Contact with and (suspected) exposure to COVID-19 (principal)
CPT/HCPCS: 87636

== ENCOUNTER 2023-11-01 12:07 | Day surgery (SDC) | payer MEDICARE, MEDICAID, SELFPAY ==
[2023-10-31 09:33] VITALS: BMI 60.2
[2023-11-01] MEDS: LACTATED RINGERS 1000ML 1,000 ML 25 ML IV (12:24)
[2023-11-01 12:27] VITALS: BP 126/60; PULSE 54; RESP 18; TEMP 36.3; O2SAT 95
--- NOTE | 2023-11-01 12:32 | HMH.SCOPE ---
Procedure: Date: 11/01/23 Patient Date of :: 1965 Indications:: Patient is a 58-year-old female with history of osteoarthritis, sleep apnea, hypertension, asthma, depression, bundle branch block, BMI of 60 who presents for colonoscopy due to history of polyps. She had a colonoscopy on 07/16/2018 in [place] and had several adenomatous polyps. I performed colonoscopy on 07/27/2022. She had a total of 10 polyps all of which were tubular adenomas. Patient describes some constipation. She states that she had rectal bleeding with the bowel prep. She also describes chronic left pelvic discomfort/pain. She had been diagnosed with pyoderma gangrenosum by dermatology. Performing Provider:: Deep Narayan MD Referring Provider:: Lynn Hubbard
--- NOTE | 2023-11-01 12:45 | EXP.ANES.CKL ---
[facility] Disclaimer: The information contained in this section may have been updated after the patient was seen, as this information can be updated by other users. Medical History Allergic rhinitis Allergies Anxiety Arthritis Asthma Bifascicular block Degenerative disc disease Dyspnea Dyspnea on exertion Family history of asthma Hemorrhoid History of 2019 novel coronavirus disease (COVID-19) History of anemia History of diverticulitis Hypertension Major depressive disorder Mild persistent asthma Moderate persistent asthma Nocturnal hypoxemia Panic disorder Pharyngitis Psoriasis Right bundle branch block Skin cancer Sleep apnea Urge urinary incontinence Surgical History H/O cosmetic surgery H/O shoulder surgery History of bariatric surgery History of carpal tunnel release History of section History of colonoscopy History of removal of skin mole History of total hip replacement History of total hysterectomy Family History Other Cancer Coronary artery disease Diabetes Heart attack Hypertension Stroke Social History Smoking Status: Former smoker alcohol intake: never substance use type: denies use current occupational status: retired and disabled Travel in the last 8 weeks: None household members: family housing: house number of children: 3 caffeine: Yes [facility] Anesthesia Checklist Patient Identification Patient Identification: Arm Band Structural Data Admitted From: Home Planned Operative Procedure/s: Colonoscopy Consent for Planned Operative Procedure(s) Verified: Yes Verified Documents: Surgical Consent and History and Physical NPO Status Verified Time NPO: 00:00 Additional verifications Anesthesia Reactions: No Airway Assessment Mallampati Score:: Class II C-Spine Mobility Assessed: Yes TMJ Mobility Assessed: Yes Dentition: Good Dentition Neurological Assessment Level of Consciousness: Awake and Alert Anesthesia Plan Anesthesia Risk discussed: Yes Anesthesia Plan: Verified ASA Class: III Anesthesia Type: MAC
[2023-11-01 12:52] VITALS: O2SAT 98
--- NOTE | 2023-11-01 13:02 | P.EN_ITS ---
Patient presented for follow-up surveillance colonoscopy. Patient is a 58-year-old female with history of osteoarthritis, sleep apnea, hypertension, asthma, depression, reported bundle branch block, BMI of 60 who presents for colonoscopy due to history of polyps. She had a colonoscopy on 07/16/2018 in [place] and had several adenomatous polyps removed. I performed colonoscopy on 07/27/2022. She had a total of 10 polyps all of which were tubular adenomas. She states that she had rectal bleeding with the bowel prep. She also describes chronic left pelvic discomfort/pain. She had been diagnosed with pyoderma gangrenosum at this location by dermatology but states that even with the area healed she has pain. Plan was to proceed with colonoscopy. History was obtained and appropriate physical examination was performed. Patient's medications and allergies were reviewed. Informed consent was obtained after explaining the benefits, alternatives, and risks of the procedure including, but not limited to, bleeding, perforation, missed lesions, and adverse reaction to anesthesia medications. Patient was transported to endoscopy procedure room. Patient was connected to e[employer]coming devices. Patient's blood pressure, pulse, and oxygen saturations were monitored. Patient identification and planned procedure were verified by the staff. Patient was positioned in lateral decubitus position. Patient was administered intravenous sedation. Prior to initiating the procedure patient had significant bradycardia with heart rate in the 30s. Procedure was not even initiated. It was felt by all personnel involved that continuation with procedure would be undesirable and carry risk for complications. Therefore procedure was not performed. Plan will be for cardiology evaluation.
--- NOTE | 2023-11-01 13:09 | ECG_ITS ---
APPROVED REPORT Exam: Resting ECG HR:41 bpm ECG Measurements Heart Rate 41 AXES QRSd 130 QRS -31 QT 495 T -37 QTc 431 Conclusion Severe sinus bradycardia with short NC interval LEFT AXIS DEVIATION [QRS AXIS < -30] RIGHT BUNDLE BRANCH BLOCK [120+ ms QRS DURATION, UPRIGHT V1, 40+ ms S IN I/aVL/V4/V5/V6] LEFT VENTRICULAR HYPERTROPHY AND ST-T CHANGE [VOLTAGE CRITERIA PLUS ST/T ABNORMALITY] ABNORMAL ECG UNCONFIRMED REPORT Electronically signed by : Balta Hernandez MD 11/02/2023 13:40:05
--- NOTE | 2023-11-01 13:12 | ECG_ITS ---
APPROVED REPORT Exam: Resting ECG HR:43 bpm ECG Measurements Heart Rate 43 AXES QRSd 129 QRS -30 QT 509 T -33 QTc 456 Conclusion Severe sinus bradycardia with short TN interval LEFT AXIS DEVIATION [QRS AXIS < -20] Right bundle branch block MODERATE VOLTAGE CRITERIA FOR LVH, CONSIDER NORMAL VARIANT [MEETS CRITERIA IN ONE OF: R(aVL), S(V1), R(V5), R(V5/V6)+S(V1)] ST DEVIATION AND MODERATE T-WAVE ABNORMALITY, CONSIDER LATERAL ISCHEMIA [-0.1+ mV T-WAVE IN I/aVL/V5/V6] ABNORMAL ECG UNCONFIRMED REPORT Electronically signed by : Balta Hernandez MD 11/02/2023 13:39:35
[2023-11-01 13:21] VITALS: BP 146/72; PULSE 47; RESP 17; TEMP 36.2; O2SAT 98
[2023-11-01 13:32] VITALS: BP 131/52; PULSE 42; RESP 18; O2SAT 100
[2023-11-01 13:42] VITALS: BP 127/73; PULSE 40; RESP 17; O2SAT 100
[2023-11-01 13:48] VITALS: BP 138/58; PULSE 40; RESP 17; O2SAT 100
--- NOTE | 2023-11-01 13:51 | SUR.PHASEII ---
pt had a place on left lower lip from biting it during procedure. no pain voiced.
== END 2023-11-01 13:52 | disposition home or self-care (01) ==
PROVIDERS: PCP Nurse Practitioner Family; Visit Provider Surgery
PROC: 0DJD8ZZ Inspection of Lower Intestinal Tract, Via Natural or Artificial Opening Endoscopic (ICD-10-PCS; principal; 2023-11-01 13:30)
DX: Z86.010 Personal history of colon polyps (principal); Z12.11 Encounter for screening for malignant neoplasm of colon; Z53.09 Procedure and treatment not carried out because of other contraindication; R00.1 Bradycardia, unspecified
CPT/HCPCS: G0105; 93005

== ENCOUNTER 2023-11-10 18:11 | Emergency (ER) | payer MEDICARE, MEDICAID, SELFPAY ==
--- NOTE | 2023-11-10 18:26 | ECG_ITS ---
APPROVED REPORT Exam: Resting ECG HR:45 bpm ECG Measurements Heart Rate 45 AXES CA 122 P 72 QRSd 129 QRS -37 QT 409 T -16 QTc 364 Conclusion SINUS BRADYCARDIA with short CA interval LEFT AXIS DEVIATION [QRS AXIS < -30] RIGHT BUNDLE BRANCH BLOCK [120+ ms QRS DURATION, UPRIGHT V1, 40+ ms S IN I/aVL/V4/V5/V6] MODERATE T-WAVE ABNORMALITY, CONSIDER LATERAL ISCHEMIA [-0.1+ mV T-WAVE IN I/aVL/V5/V6] ABNORMAL ECG UNCONFIRMED REPORT Electronically signed by : Balta Hernandez MD 11/11/2023 17:17:25
[2023-11-10 18:27] VITALS: BP 182/80; PULSE 57; RESP 15; TEMP 38.2; O2SAT 96; BMI 57.5
--- NOTE | 2023-11-10 18:31 | PC.NURSE ---
Dr. Swan at [facility] for pt eval
--- NOTE | 2023-11-10 18:34 | XR_ITS ---
PROCEDURE INFORMATION: Exam: XR Chest Exam date and time: 11/10/2023 6:37 PM Age: 58 years old Clinical indication: Shortness of breath; Additional info: SOB R hola TECHNIQUE: Imaging protocol: Radiologic exam of the chest. Views: 1 view. COMPARISON: CR XR CHEST PORTABLE 07/03/2021 5:56 AM FINDINGS: Lungs: Stable scattered calcified granulomas throughout both lungs. No active pulmonary infiltrate. Pleural spaces: Unremarkable. No pleural effusion. No pneumothorax. Heart/Mediastinum: Unremarkable. No cardiomegaly. Bones/joints: Unremarkable. IMPRESSION: No acute disease
[2023-11-10 18:38] LABS: Coronavirus 19, PCR Not Detected (NotDetected); Influenza A, PCR Not Detected (NotDetected)
--- NOTE | 2023-11-10 18:38 | ED_ITS ---
Discharge Plan Disposition Patient Disposition: Home, Self-Care Prescriptions Prescriptions: New cefdinir 300 mg capsule 300 mg PO Q12H 7 Days Qty: 14 0RF oseltamivir [Tamiflu] 75 mg capsule 75 mg PO BID 5 Days Qty: 10 0RF ondansetron 4 mg tablet,disintegrating 4 mg PO Q8H PRN (Reason: nausea and vomiting) 3 Days Qty: 9 0RF No Action selenium 100 mcg tablet 100 mcg PO DAILY biotin 1 mg capsule 1 mg PO DAILY ketoconazole 2 % cream 1 applic topical DAILY Patient Comments: APPLY TOPICALLY TO THE AFFECTED AREA(S) EVERY MORNING hydrocortisone 2.5 % ointment 1 applic topical DAILY Patient Comments: APPLY TOPICALLY TO THE AFFECTED AREA(S) EVERY EVENING fluticasone propion-salmeterol [Advair Diskus] 250-50 mcg/dose blister with device 1 inh inhalation BID 90 Days Qty: 180 3RF fluticasone propionate [Flonase Allergy Relief] 50 mcg/actuation spray,suspension 1 spray intranasal DAILY 90 Days Qty: 16 2RF Rx Instructions: administer into each nostril Slow Fe 142 mg (45 mg iron) tablet extended release 142 mg PO BID melatonin 5 mg tablet 10 mg PO HS modafinil 200 mg tablet 200 mg PO DAILY Qty: 30 5RF pramipexole 0.25 mg tablet 0.25 mg PO HS 30 Days Qty: 30 5RF mecobalamin (vitamin B12) 1,000 mcg tablet,disintegrating 1,000 mcg SUBLINGUAL DAILY Qty: 90 3RF ondansetron 8 mg tablet,disintegrating 8 mg PO Q8H PRN (Reason: nausea and vomiting) Qty: 30 0RF bisoprolol fumarate 5 mg tablet 2.5 mg PO DAILY Qty: 90 1RF Clenpiq 10 mg-3.5 gram- 12 gram/175 mL solution 175 ml PO DAILY Qty: 350 0RF Rx Instructions: take first dose at 5-9PM evening before colonoscopy; 2nd dose the next day approximately 5 hrs before colonoscopy oxybutynin chloride 10 MG tablet extended release 24hr 10 mg PO DAILY cetirizine 10 mg tablet 10 mg PO DAILY Rx Instructions: TAKE ONE TABLET BY MOUTH EVERY DAY FOR ALLERGY symptoms hydroxyzine pamoate 50 mg capsule 50 mg PO DAILY Rx Instructions: TAKE ONE CAPSULE BY MOUTH EVERY DAY IN THE MORNING FOR ANXIETY amlodipine 10 mg tablet 10 mg PO DAILY Rx Instructions: TAKE ONE TABLET BY MOUTH EVERY DAY escitalopram oxalate 20 mg tablet 20 mg PO DAILY Rx Instructions: TAKE ONE TABLET BY MOUTH EVERY DAY FOR depression bupropion HCl [Wellbutrin XL] 300 mg tablet extended release 24 hr 300 mg PO DAILY Rx Instructions: TAKE ONE TABLET BY MOUTH EVERY DAY FOR depression Myrbetriq 50 mg tablet extended release 24 hr 50 mg PO DAILY Rx Instructions: TAKE ONE TABLET BY MOUTH EVERY DAY Referrals Follow up/Referrals: Clifton Mullins APRN [Primary Care Provider] - See instructions Activity Restrictions/Add. Instructions Additional Instructions/Restrictions: At this time it was felt you are safe to be discharged home. If new or worsening symptoms please do not hesitate to return the emergency department. If symptoms persist please follow-up with your family doctor in 3 to 4 days as you are able for repeat evaluation to make sure things are headed in the right direction. Please take your medications as prescribed. Clinical Impressions Clinical Impression: UTI (urinary tract infection), Influenza B Discharge ED Provider: Paresh Swan HPI General Chief Complaint: Shortness of Breath/Dyspnea Stated Complaint: cough soa albarran diarrhea chills Time Seen by Provider: 11/10/23 18:18 Mode of Arrival: Wheelchair Source of Information: Patient Limitations: No Limitations Description of Symptoms (Recalled from ER Triage Doc. by RN): pt c/o SOA, light headedness, weakness, cough, chest congestion, and wheezing. pts grandauter was positive for RSV 3wks ago. pt states she had an unsuccessful colonoscopy on 11/01 because her heart rate dropped. History of Present Illness HPI narrative: Patient is a 58-year-old female with multiple comorbidities including hypertension, former smoker, palpitations on beta-tangela, urge incontinence, asthma who presents emergency department for evaluation of multiple complaints. Patient has shortness of breath, weakness, cough, sore throat, lightheadedness. Onset was acute. Sick contact with RSV 3 weeks ago. Patient states her baseline heart rate is in the 50s. Per review of cardiology note patient has stable diastolic dysfunction, paroxysmal SVT on beta-blockade. Bradycardia burden 17.5% in August. Due to persistent symptoms she presents here for continued evaluation. No headaches or room spinning. No trauma. No reports of chest pain. Related Data Home Medications Medication Instructions Recorded Confirmed oxybutynin chloride 10 mg 10 mg PO DAILY overactive bladder 06/29/21 10/31/23 tablet,extended release 24 hr ferrous sulfate 142 mg (45 mg 142 mg PO BID Diet supplement 10/11/21 10/31/23 iron) tablet,extended release (Slow Fe) biotin 1 mg capsule 1 mg PO DAILY Supplement 11/30/21 10/31/23 selenium 100 mcg tablet 100 mcg PO DAILY Supplement 11/30/21 10/31/23 hydrocortisone 2.5 % topical 1 applic topical DAILY 11/14/22 10/31/23 ointment ketoconazole 2 % topical cream 1 applic topical DAILY 11/14/22 10/31/23 melatonin 5 mg tablet 10 mg PO HS Sleep 11/14/22 10/31/23 amlodipine 10 mg tablet 10 mg PO DAILY 10/31/23 10/31/23 bupropion HCl 300 mg 24 hr tablet, 300 mg PO DAILY 10/31/23 10/31/23 extended release (Wellbutrin XL) cetirizine 10 mg tablet 10 mg PO DAILY 10/31/23 10/31/23 escitalopram oxalate 20 mg tablet 20 mg PO DAILY 10/31/23 10/31/23 hydroxyzine pamoate 50 mg capsule 50 mg PO DAILY 10/31/23 10/31/23 mirabegron 50 mg tablet,extended 50 mg PO DAILY 10/31/23 10/31/23 release 24 hr (Myrbetriq) Previous Rx's Medication Instructions Recorded mecobalamin (vitamin B12) 1,000 1,000 mcg sublingual DAILY 09/07/21 mcg disintegrating Supplement #90 tabs tablet,sublingual modafinil 200 mg tablet 200 mg PO DAILY Hypersomnia with 02/13/23 GORAN #30 tabs pramipexole 0.25 mg tablet 0.25 mg PO HS RLS 30 days #30 tabs 02/13/23 ondansetron 8 mg disintegrating 8 mg PO Q8H PRN nausea and 05/24/23 tablet vomiting #30 tabs fluticasone 250 mcg-salmeterol 50 1 inh inhalation BID 90 days #180 06/18/23 mcg/dose blistr powdr for ea inhalation (Advair Diskus) fluticasone propionate 50 1 spray intranasal DAILY 90 days 06/18/23 mcg/actuation nasal #16 grams spray,suspension (Flonase Allergy Relief) bisoprolol fumarate 5 mg tablet 2.5 mg PO DAILY #90 tabs 09/24/23 sod picosulf 10 mg-magnes 3.5 175 ml PO DAILY 2 doses #350 mL 10/03/23 gram-citric 12 gram/175 mL oral solution (Clenpiq) cefdinir 300 mg capsule 300 mg PO Q12H uti 7 days #14 caps 11/10/23 ondansetron 4 mg disintegrating 4 mg PO Q8H PRN nausea and 11/10/23 tablet vomiting 3 days #9 tabs oseltamivir 75 mg capsule (Tamiflu) 75 mg PO BID 5 days #10 caps 11/10/23 Allergies Allergy/AdvReac Type Severity Reaction Status Date / Time No Known Allergies Allergy Verified 11/01/23 12:24 PFS PFS Disclaimer: The information contained in this section may have been updated after the patient was seen, as this information can be updated by other users. Medical History (Updated 11/10/23 @ 20:31 by Paresh Swan MD) Allergic rhinitis Allergies Anxiety Arthritis Asthma Bifascicular block Degenerative disc disease Dyspnea Dyspnea on exertion Family history of asthma Hemorrhoid History of 2019 novel coronavirus disease (COVID-19) History of anemia History of diverticulitis Hypertension Major depressive disorder Mild persistent asthma Moderate persistent asthma Nocturnal hypoxemia Panic disorder Pharyngitis Psoriasis Right bundle branch block Skin cancer Sleep apnea Urge urinary incontinence Surgical History H/O cosmetic surgery H/O shoulder surgery History of bariatric surgery History of carpal tunnel release History of section History of colonoscopy History of removal of skin mole History of total hip replacement History of total hysterectomy Family History Other Cancer Coronary artery disease Diabetes Heart attack Hypertension Stroke Social History Smoking Status: Never smoker alcohol intake: never substance use type: denies use current occupational status: retired and disabled Travel in the last 8 weeks: None household members: family housing: house number of children: 3 caffeine: Yes ROS Obtained: Yes Systems reviewed as appropriate & no additional complaints except as documented Physical Exam General General appearance: alert and in no apparent distress Head Head exam: atraumatic and normocephalic Eye Eye exam: Present PERRL and EOMI ENT ENT exam: Present mucous membranes moist and other (Mildly erythematous posterior oropharynx without exudate.) Neck Neck exam: Present normal inspection Chest Chest inspection: Present normal inspection and symmetric chest wall rise Respiratory Respiratory exam: Present other (Rhonchi on the right); Absent normal lung sounds bilaterally or respiratory distress Cardiovascular Cardiovascular exam: Present normal rhythm and bradycardia Abdominal Exam Abdominal exam: Present soft; Absent tenderness Extremities Exam Extremities exam: Present normal inspection Neurological Exam Neurological exam: Present alert Psychiatric Psychiatric exam: Present normal affect Skin Skin exam: Present warm and dry HEART Score HEART Score HEART Score assessment performed?: Yes History (anamnesis): Slightly suspicious ECG: Normal Age: 45-65 years Risk factors: 3 or more risk factors Troponin: </= normal limit HEART Score: 3 Critical Care Critical Care Time Critical Care Time: No Medical Decision Making Michael Inquiry Pt receiving controlled substance: No Vital Signs Vital Signs: 11/10/23 18:27 11/10/23 19:05 11/10/23 19:00 Temperature 100.8 F H Temperature Source Oral Pulse Rate 55 L 56 L Pulse Rate [Left] 57 L Respiratory Rate 15 11 L Blood Pressure 148/79 H Blood Pressure [Right Arm] 182/80 H Blood Pressure Mean [Right Arm] 114 Blood Pressure Source [Right Arm] Automatic Cuff Blood Pressure Position [Right Arm] Sitting 02 Sat by Pulse Oximetry 96 100 Oxygen Delivery Method Room Air 11/10/23 19:31 11/10/23 20:00 Temperature Temperature Source Pulse Rate 55 L 61 Pulse Rate [Left] Respiratory Rate 13 16 Blood Pressure 137/66 147/71 H Blood Pressure [Right Arm] Blood Pressure Mean [Right Arm] Blood Pressure Source [Right Arm] Blood Pressure Position [Right Arm] 02 Sat by Pulse Oximetry 95 94 L Oxygen Delivery Method Lab Data Labs: Lab Results 11/10/23 18:20: SARS-CoV-2 (PCR) Not detected, Influenza A Untype (PCR) Not detected, Influenza Type B (PCR) Detected A 11/10/23 18:42: WBC 4.7 L, RBC 4.87, Hgb 14.2, Hct 41.9, MCV 86.0, MCH 29.1, MCHC 33.8, RDW 14.9, Plt Count 124 L, MPV 9.2, Neut % (Auto) 62.2, Lymph % (Auto) 27.7, Larue % (Auto) 7.4, Eos % (Auto) 1.7, Baso % (Auto) 1.0, Neut # (Auto) 2.9, Lymph # (Auto) 1.3, Larue # (Auto) 0.4, Eos # (Auto) 0.1, Baso # (Auto) 0.0, Sodium 137, Potassium 3.7, Chloride 105, Carbon Dioxide 27, Anion Gap 8.7, BUN 9, Creatinine 1.00, Estimated Creat Clear 49, Estimated GFR 57 L, Est GFR ( Amer) 68, Glucose 111 H, Calcium 8.7, Total Bilirubin 0.6, AST 35, ALT 18, Alkaline Phosphatase 97, Troponin I < 0.01, Total Protein 7.1, Albumin 3.9, Globulin 3.2, Albumin/Globulin Ratio 1.2 11/10/23 19:10: Urine Color Yellow, Urine Appearance Clear, Urine pH 6.0, Ur Specific [place] [address] 1.020, Urine Protein Negative, Urine Glucose (UA) Negative, Urine Ketones Negative, Urine Blood Negative, Urine Nitrate Positive, Urine Bilirubin Negative, Urine Urobilinogen 1.0, Ur Leukocyte Esterase Trace, Urine RBC None, Urine WBC 3-5, Ur Squamous Epith Cells Occasional, Urine Bacteria 3+ 11/10/23 18:42 11/10/23 18:42 Response Orders (Tests/Meds): ED MEDICATIONS Generic Name Dose Route Start Last Admin Trade Name Freq PRN Reason Stop Dose Admin Cefdinir 300 mg 11/10/23 20:28 11/10/23 20:31 Cefdinir 300mg Capsule PO 11/10/23 20:29 300 mg ONCE ONE Administration Discontinued Medications Generic Name Dose Route Start Last Admin Trade Name Freq PRN Reason Stop Dose Admin Albuterol/Ipratropium 6 ml 11/10/23 18:37 11/10/23 19:04 Ipratropium/Albuterol 3 Ml Neb IH 11/10/23 18:38 6 ml ONCE ONE Administration Lactated Ringer's 1,000 mls @ 999 mls/hr 11/10/23 18:35 11/10/23 18:50 Lactated Ringer's 1000 Ml Bag IV 11/10/23 19:35 999 mls/hr .Q1H1M ONE Administration Methylprednisolone Sodium Succinate 125 mg 11/10/23 18:37 11/10/23 18:50 Methylprednisolone Sod Succ 125mg Vial IV 11/10/23 18:38 125 mg ONCE ONE Administration ORDERS Category Date Time Status CXR --portable [XR chest portable] Stat Exams 11/10/23 18:34 Completed CBC w/Auto Diff [Complete Blood Count Auto Diff] Stat Lab 11/10/23 18:42 Completed CMP [Comprehensive Metabolic Panel] Stat Lab 11/10/23 18:42 Completed Rapid PCR Covid and Flu A/B Stat Lab 11/10/23 18:20 Completed Trop I [Troponin I] Stat Lab 11/10/23 18:42 Completed Troponin I Q3H Lab 11/10/23 21:45 Ordered Troponin I Q3H Lab 11/11/23 00:45 Ordered UA [Urinalysis and Microscopic] Stat Lab 11/10/23 19:10 Completed Urine Culture Stat Micro 11/10/23 19:10 Received ECG Data Tracing #1: ECG Narrative: Independently interpreted by me, rate is 45, rhythm is regular, sinus bradycardia, no ST elevation in anatomical contiguous leads, right bundle branch block, QTc 364. MDM Narrative Medical Decision Narrative: In summary patient is a 58-year-old female with past medical history described above who presents emergency department for evaluation of shortness of breath, cough, sore throat, weakness. Patient is hemodynamically stable nontoxic- appearing upon arrival, febrile temperature 100.8 ?F. Patient is bradycardic however has bradycardia at baseline. Differential includes viral syndrome, pneumonia, urinary tract infection, among others. Workup will be conducted with hematologic labs, chest x-ray, EKG, troponin, urinalysis. Initial interventions include crystalloid bolus, IV Tylenol. Workup reviewed by me, hematologic labs are nonactionable, initial troponin below detectable limit. Urinalysis interpreted by me and consistent with infection, patient is influenza B positive. Ambulatory oxygenation test shows no desaturations below 90%. Given this first dose of cefdinir will be administered here and patient was discharged with cefdinir, Tamiflu, Zofran was given return.
[2023-11-10] MEDS: METHYLPREDNISOLONE SOD SUCC 125MG VIAL 125 MG IV (18:50)
[2023-11-10] MEDS: LACTATED RINGERS 1000ML 1,000 ML 999 ML IV (18:50)
[2023-11-10 18:54] LABS: Eosinophils # 0.1 K/mm3 (0.0-0.4); Eosinophils % 1.7 % (0.1-12.0); Hematocrit 41.9 % (37.0-47.0); Hemoglobin 14.2 g/dL (12.2-16.2); Lymphocytes # 1.3 K/mm3 (0.7-4.5); Lymphocytes % 27.7 % (10-50); Mean Corpuscular HGB Conc 33.8 g/dL (31.8-35.4); Mean Corpuscular Hemoglobin 29.1 pg (27.0-31.2); Mean Platelet Volume 9.2 fl (7.4-10.4); Monocytes # 0.4 K/mm3 (0.1-1.0); Monocytes % 7.4 % (1.7-9.3); Neutrophils # 2.9 K/mm3 (1.8-7.8); Neutrophils % 62.2 % (37.0-80.0); Platelet Count 124 K/mm3 (142-424); Red Blood Count 4.87 M/mm3 (4.20-5.40); Red Cell Distribution Width 14.9 % (11.5-17.5); White Blood Count 4.7 K/mm3 (4.8-10.8)
[2023-11-10 19:00] VITALS: BP 148/79; PULSE 56; RESP 11; O2SAT 100
[2023-11-10 19:00] LABS: Alanine Aminotransferase 18 U/L (12-78); Albumin Level 3.9 g/dl (3.5-5.0); Albumin/Globulin Ratio 1.2 (1.1-1.8); Alkaline Phosphatase 97 U/L (38-126); Anion Gap 8.7 mEq/L (5-15); Aspartate Amino Transferase 35 U/L (14-36); Bilirubin,Total 0.6 mg/dl (0.2-1.3); Blood Urea Nitrogen 9 mg/dl (7-17); Calcium 8.7 mg/dl (8.4-10.2); Carbon Dioxide 27 mmol/L (22.0-30.0); Chloride 105 mmol/L (98-107); Creatinine Clearance Estimated 49 mL/min (50-200); Estimated Glomerular Filt Rate 57 ml/min (>60); GFR (African American) 68 ML/MIN (>60); Globulin 3.2 g/dL (1.3-3.2); Glucose 111 mg/dl (74-100); Potassium 3.7 mmoL/L (3.5-5.1); Sodium 137 mmol/L (136-145); Total Protein,Serum 7.1 g/dl (6.3-8.2)
[2023-11-10] MEDS: IPRATROPIUM/ALBUTEROL 3 ML NEB 6 ML IH (19:04)
[2023-11-10 19:05] VITALS: PULSE 55
[2023-11-10 19:06] LABS: Influenza B, PCR Detected (NotDetected)
[2023-11-10 19:18] LABS: Troponin I < 0.01 ng/ml (0.00-0.034)
[2023-11-10 19:21] LABS: Microscopic, Urine URINE MICROSCOPIC (MICROSCOPIC)
[2023-11-10 19:23] LABS: Appearance,Urine CLEAR (Clear); Bilirubin,Urine Negative (Negative); Blood, Urine Negative (Negative); Color,Urine YELLOW (Yellow); Glucose,Urine (UA) Negative (Negative); Ketones,Urine Negative (Negative); Leukocyte Esterase,Urine TRACE (Negative); Nitrate,Urine POSITIVE (Negative); Protein,Urine Negative (Negative)
[2023-11-10 19:31] VITALS: BP 137/66; PULSE 55; RESP 13; O2SAT 95
[2023-11-10 19:46] LABS: Bacteria,Urine 3+ /lpf; Squamous Epithelial Cell,Urine Occasional #/hpf (0-5)
[2023-11-10 20:00] VITALS: BP 147/71; PULSE 61; RESP 16; O2SAT 94
--- NOTE | 2023-11-10 20:21 | PC.NURSE ---
Pt ambulated with O2, she is 95% sitting 93% walking
[2023-11-10] MEDS: CEFDINIR 300MG CAPSULE 300 MG PO (20:31)
[2023-11-10 20:35] VITALS: BP 139/73; PULSE 64; RESP 16; TEMP 37.1; O2SAT 95
--- NOTE | 2023-11-14 06:27 | PC.NURSE ---
prelim u/a cx read as atb appropriate per dr brice. no new orders
== END 2023-11-10 20:36 | disposition home or self-care (01) ==
PROVIDERS: Emergency Provider Emergency Medicine; PCP Nurse Practitioner Family
DX: J10.1 Influenza due to other identified influenza virus with other respiratory manifestations (principal); R06.02 Shortness of breath; R05.9 Cough, unspecified; N39.0 Urinary tract infection, site not specified; B96.29 Other Escherichia coli [E. coli] as the cause of diseases classified elsewhere; R00.1 Bradycardia, unspecified; I45.19 Other right bundle-branch block; I10 Essential (primary) hypertension; J45.909 Unspecified asthma, uncomplicated
CPT/HCPCS: 71045; 80053; 81001; 84484; 85025; 87086; 87636; 93005; 96361; 96374; 99285

== ENCOUNTER 2023-11-27 08:46 | Day surgery (SDC) | payer MEDICARE, MEDICAID, SELFPAY ==
[2023-11-27] VITALS (10 sets, daily range): BP systolic 113–156; BP diastolic 56–93; PULSE 45–70; RESP 15–20; TEMP 36.6; O2SAT 97–99; BMI 57.0
--- NOTE | 2023-11-27 07:08 | IR_ITS ---
APPROVED REPORT Patient Location: Outpatient Feather Separator: CANDIDO Martnii RT (R) PROCEDURES 1. Pocket formation for Permanent Pacemaker Placement. 2. Placement of an atrial sensing and pacing coil into the right atrial appendage. 3. Placement of a ventricular sensing and pacing coil in the right ventricular apex. 4. Permanent Pacemaker Placement. INDICATION Sinus Pause Informed consent was obtained prior to the procedure. COMPLICATIONS NONE Estimated Blood Loss: LESS THAN 10 ML TECHNIQUE 1% Lidocaine with epinephrine used to anesthetized the left anterior aspect of the chest. Scalpel was used to make the initial cutaneous incision while electrocautery was used to dissect down tinto the fascia. The fascia was lifted off the pectoralis muscle and digitally manipulated creating a pocket for the pacemaker. The patient was then placed in Trendelenburg position and the subclavian vein was accessed twice via the Selinger technique, there are two wires in the vein. A 6 Peruvian sheath was placed under fluoroscopic guidance into the subclavian vein over one of the wires while keeping the other wire in place within the subclavian vein. The dilator was removed from the sheath. Using fluoroscopic guidance, the ventricular lead was placed into the right ventricular apex, screwed and secured into place. Electronic interrogation proved acceptable thresholds and voltage within the lead. Using 3-0 silk, the ventricular lead was then secured into place. Lead was secured to the facia using the 3-0 silk. Following this, the sheath was pealed away. An additional 6 Peruvian fresh sheath and dilator was placed over the existing wire. Using fluoroscopic guidance, the atrial lead was the placed into the right atrial appendage and screwed and secured in place. Electrical interrogation demonstrated acceptable thresholds and voltage number. The atrial lead was then secured into place using 3-0 silk. 1 gram of Ancef was used to flush the pocket. Following the pacemaker generator being secured to the fascia and in place, Monocryl was used to close the subcutaneous layers while shahnaz were used to close the cutaneous layer. A pressure dressing was placed and the patient was transferred to the postop holding area in stable condition for postoperative care. INTERROGATION Generator Model number: [facility], [id number] Generator Serial number: [id number] Atrial lead model number: Tendril STS, 2087TC, 52cm Atrial lead serial number: [id number] P-wave: 3.3mV Impedence: 540 ohms Threshold: 0.75V@0.4ms Right Ventricular lead model number: Jeffrey ASCENCIO, 2087TC, 58cm Right Ventricular lead serial number: [id number] R-wave: 4.0mV Impedence: 540 ohms Threshold: 0.5V@0.4ms Pacing Parameters: Mode: DDDR Base/Max Track:60 ppm / 130 ppm No diaphragmatic stimulation at 10 volts. IMPRESSION 1. Successful pocket formation for Permanent Pacemaker Placement. 2. Successful placement of an atrial sensing and pacing coil into the right atrial appendage. 3. Successful placement of a ventricular sensing and pacing coil in the right ventricular apex. 4. Successful permanent Pacemaker Placement. PLAN 1. Postop wound care. Electronically signed by : Geronimo Carreno MD 11/29/2023 10:59:42
[2023-11-27 09:11] LABS: Basophils # 0.1 K/mm3 (0-0.2); Basophils % 0.8 % (0.1-2.0); Eosinophils # 0.2 K/mm3 (0.0-0.4); Eosinophils % 2.1 % (0.1-12.0); Hematocrit 50.4 % (37.0-47.0); Hemoglobin 15.9 g/dL (12.2-16.2); Lymphocytes # 3.9 K/mm3 (0.7-4.5); Lymphocytes % 39.6 % (10-50); Mean Corpuscular HGB Conc 31.5 g/dL (31.8-35.4); Mean Corpuscular Hemoglobin 29.1 pg (27.0-31.2); Mean Corpuscular Volume 92.6 fl (81-99); Mean Platelet Volume 8.2 fl (7.4-10.4); Monocytes # 0.5 K/mm3 (0.1-1.0); Monocytes % 4.6 % (1.7-9.3); Neutrophils # 5.2 K/mm3 (1.8-7.8); Neutrophils % 52.9 % (37.0-80.0); Platelet Count 211 K/mm3 (142-424); Red Blood Count 5.44 M/mm3 (4.20-5.40); Red Cell Distribution Width 14.9 % (11.5-17.5); White Blood Count 9.9 K/mm3 (4.8-10.8)
[2023-11-27 09:16] LABS: Chloride 108 mmol/L (98-107); Potassium 3.9 mmoL/L (3.5-5.1); Sodium 140 mmol/L (136-145)
[2023-11-27 09:18] LABS: Blood Urea Nitrogen 12 mg/dl (7-17); Creatinine Clearance Estimated 45 mL/min (50-200); Estimated Glomerular Filt Rate 51 ml/min (>60); GFR (African American) 61 ML/MIN (>60)
[2023-11-27 09:19] LABS: Anion Gap 7.9 mEq/L (5-15); Calcium 8.9 mg/dl (8.4-10.2); Carbon Dioxide 28 mmol/L (22.0-30.0); Glucose 105 mg/dl (74-100)
--- NOTE | 2023-11-27 11:17 | P.PNANES_ITS ---
[facility] Disclaimer: The information contained in this section may have been updated after the patient was seen, as this information can be updated by other users. Medical History Allergic rhinitis Allergies Anxiety Arthritis Asthma Bifascicular block Degenerative disc disease Dyspnea Dyspnea on exertion Family history of asthma Hemorrhoid History of 2019 novel coronavirus disease (COVID-19) History of anemia History of diverticulitis Hypertension Major depressive disorder Mild persistent asthma Moderate persistent asthma Nocturnal hypoxemia Panic disorder Pharyngitis Psoriasis Right bundle branch block Skin cancer Sleep apnea Tachy-stefany syndrome Urge urinary incontinence Surgical History H/O cosmetic surgery H/O shoulder surgery History of bariatric surgery History of carpal tunnel release History of section History of colonoscopy History of removal of skin mole History of total hip replacement History of total hysterectomy Family History Other Cancer Coronary artery disease Diabetes Heart attack Hypertension Stroke Social History (Updated 11/27/23 @ 09:00 by Candice Guzman) Smoking Status: Never smoker alcohol intake: never substance use type: denies use current occupational status: retired and disabled Travel in the last 8 weeks: None household members: family housing: house number of children: 3 caffeine: Yes [facility] Anesthesia Checklist Patient Identification Patient Identification: Arm Band Structural Data Admitted From: Home Planned Operative Procedure/s: Dual Chamber Pacemaker Consent for Planned Operative Procedure(s) Verified: Yes Verified Documents: Surgical Consent and History and Physical NPO Status Verified Time NPO: 00:00 Additional verifications Anesthesia Reactions: No Airway Assessment Mallampati Score:: Class III C-Spine Mobility Assessed: Yes TMJ Mobility Assessed: Yes Dentition: Good Dentition Neurological Assessment Level of Consciousness: Awake and Alert Anesthesia Plan Anesthesia Risk discussed: Yes Anesthesia Plan: Verified ASA Class: IV Anesthesia Type: MAC
[2023-11-27] MEDS: LIDOCAINE 1% W/EPI 1:100,000 20ML VIAL 20 ML SQ (11:35)
[2023-11-27] MEDS: CEFAZOLIN SODIUM 1 GM in 0.9 % SODIUM CHLORIDE 50 ML IV (11:36)
[2023-11-27] MEDS: CEFAZOLIN 1GM VIAL 1 GM TP (11:36)
[2023-11-27] MEDS: 0.9 % SODIUM CHLORIDE 1000ML 1,000 ML 25 ML IV (11:36)
--- NOTE | 2023-11-27 12:59 | XR_ITS ---
FINAL REPORT CLINICAL HISTORY: Confirm pacemaker/AID placement COMPARISON: 11/10/2023 FINDINGS: The heart size is normal. Left-sided pacer is noted. There are overlying skin shahnaz. The mediastinum is normal. There is no focal infiltrate or edema. There are calcified granulomas in both lungs. There are no pleural effusions. There is no pneumothorax. There is no osseous abnormality. IMPRESSION: No acute cardiopulmonary process. Left-sided pacer with overlying skin shahnaz. Reviewed, Interpreted and Dictated by Jayy Webber MD Transcribed by Vianca Dior Authenticated and . [facility]
[2023-11-27] MEDS: OXYCODONE 5MG W/APAP 325MG TABLET 1 EACH PO (13:53)
== END 2023-11-27 14:39 | disposition home or self-care (01) ==
PROVIDERS: PCP Nurse Practitioner Family; Visit Provider Internal Medicine
DX: I49.5 Sick sinus syndrome (principal); I10 Essential (primary) hypertension; Z86.16 Personal history of COVID-19; Z79.899 Other long term (current) drug therapy; I49.3 Ventricular premature depolarization; R60.0 Localized edema
CPT/HCPCS: 33208; 71045; 80048; 85025; 99152; 99153; C1785; C1898; J2704

== ENCOUNTER 2023-12-30 16:20 | Outpatient (CLI) | payer MEDICARE, MEDICAID, SELFPAY ==
[2023-12-30 16:20] LABS: Microscopic,Cath URINE MICROSCOPIC (MICROSCOPIC)
[2023-12-30 16:58] LABS: Appearance,Urine/Cath CLEAR (Clear); Bilirubin,Cath Negative (Negative); Blood, Urine/Cath 1+ (Negative); Color,Urine/Cath YELLOW (Yellow); Glucose,Urine/Cath (UA) Negative (Negative); Ketones,Urine/Cath Negative (Negative); Leukocyte Esterase,Cath 3+ (Negative); Nitrate,Cath Negative (Negative); PH,Urine/Cath 6.5 (5.0-8.5); Protein,Urine/Cath TRACE (Negative)
== END 2023-12-30 23:59 ==
LOC: LAB.DROPOF 16:20
PROVIDERS: PCP Urology; Visit Provider Urology
DX: N39.0 Urinary tract infection, site not specified (principal); B96.29 Other Escherichia coli [E. coli] as the cause of diseases classified elsewhere
CPT/HCPCS: 81001; 87086

== ENCOUNTER 2024-02-11 13:59 | Outpatient (POV) | payer MEDICARE, MEDICAID, SELFPAY | END 2024-02-11 23:59 | disposition home or self-care (01) | LOC: SC 13:59 | PROVIDERS: PCP Nurse Practitioner Family; Visit Provider Dermatology | DX: Z00.00 Encounter for general adult medical examination without abnormal findings (principal) ==

== ENCOUNTER 2024-06-05 06:23 | Day surgery (SDC) | payer MEDICARE, SELFPAY ==
[2024-02-20 10:27] VITALS: BMI 58.4
--- NOTE | 2024-02-21 11:42 | HMH.SCOPE ---
Procedure: Date: 02/21/24 Patient Date of :: 1965 Indications:: Patient presents for colonoscopy. She is a 58-year-old female with history of osteoarthritis, sleep apnea, hypertension, asthma, depression, reported bundle branch block, BMI of 59 who presents for colonoscopy due to history of polyps. She had a colonoscopy on 07/16/2018 in [place] and had several adenomatous polyps removed. I performed colonoscopy on 07/27/2022. She had a total of 10 polyps all of which were tubular adenomas. Patient was scheduled for colonoscopy and presented for procedure on 11/01/2023. After she was administered intravenous sedation, prior to initiating the procedure, patient had significant bradycardia with heart rate in the 30s. Her procedure was therefore not performed in cardiology consultation was obtained. Patient did undergo permanent pacemaker implantation on 11/27/2023. . Performing Provider:: Deep Narayan MD Referring Provider:: Clifton Mullins
--- NOTE | 2024-06-01 12:08 | SUR.PREOP ---
Notified Chula Baeza [employer] of pt's BMI of 58. Ok to proceed per [employer].
[2024-06-03 13:45] VITALS: BMI 57.6
[2024-06-05 06:41] VITALS: BP 151/74; PULSE 60; RESP 18; TEMP 36.1; O2SAT 95
--- NOTE | 2024-06-05 06:51 | P.PCN_ITS ---
Procedure: Date: 06/05/24 Patient Date of :: 1965 Procedure Performed:: Total colonoscopy to terminal ileum with polypectomy using snare . Indications:: Patient presents for follow-up colonoscopy. She had a colonoscopy on 07/16/2018 in [place] and had several adenomatous polyps removed. I performed colonoscopy on 07/27/2022. She had a total of 10 polyps all of which were tubular adenomas. She had a colonoscopy scheduled for 11/01/2023. At that time upon induction of anesthesia she had significant bradycardia with a heart rate in the 30s and her procedure was not performed. Cardiology was involved. She did undergo pacemaker placement. . Performing Provider:: Deep Narayan MD Referring Provider:: Clifton Mullins . Sedation:: MAC sedation . Procedure:: Patient history was obtained and appropriate physical examination was performed. Patient's medications and allergies were reviewed. Informed consent was obtained after explaining the benefits, alternatives, and risks of the procedure including, but not limited to, bleeding, perforation, missed lesions, and adverse reaction to anesthesia medications. Patient was transported to endoscopy procedure room. Patient was connected to monitoring devices. Throughout the procedure the patient's blood pressure, pulse, and oxygen saturations were monitored continuously. Patient identification and planned procedure were verified by the staff. Patient was positioned in lateral decubitus position. Digital anorectal exam was performed. Variable stiffness Olympus colonoscope was inserted and advanced under direct visualization to the cecum. Adequacy of the colonic preparation was noted. The colonoscope was advanced a short distance into the terminal ileum. The colonoscope was then slowly withdrawn while carefully examining the color, texture, anatomy, and integrity of the mucosoa circumferentially. Within the rectum retroflexion was performed. Colonoscope was then withdrawn. Impression: There was some redundancy to the sigmoid colon. She had pandiverticulosis. There was some particulate stool throughout the colon which was able to be mostly cleared. In the proximal transverse colon there was adenomatous appearin g polyp removed with hot snare. At the splenic flexure there were a couple of adenomatous appearing polyps removed with hot snare. Larger of which required removal in a piecemeal fashion. Initially the specimen was unable to be retrieved. Colonoscope was advanced to locate the polyp post polypectomy. A tiny polyp was encountered in the mid transverse colon which was removed with cold snare. Polypectomy specimens were then identified which required retrieval and maceration using the Morales net. Colonoscope was withdrawn. . Findings:: Pandiverticulosis Polyps as noted above Recommendations:: Repeat colonoscopy pending pathology, likely 2 or 3 years Complications:: None immediate Estimated blood obtained (mL): 2 Colonoscopy Component Colonoscopy Component Was a colonoscopy performed during today's procedure?: Yes Recommended follow up colonoscopy of at least 10 years?: No If no, follow up colonoscopy recommended in ___ years?: 2-3 Reason for not recommending >/= 10 yr follow-up interval?: See above
--- NOTE | 2024-06-05 06:55 | EXP.ANES.CKL ---
[facility] Disclaimer: The information contained in this section may have been updated after the patient was seen, as this information can be updated by other users. Medical History Hypersomnia Tachy-stefany syndrome Arthritis Degenerative disc disease Anxiety Urge urinary incontinence Sleep apnea Psoriasis Hemorrhoid History of diverticulitis History of anemia Skin cancer Pharyngitis Moderate persistent asthma Hypertension Allergic rhinitis Asthma Nocturnal hypoxemia Mild persistent asthma Family history of asthma Allergies History of 2019 novel coronavirus disease (COVID-19) Dyspnea on exertion Panic disorder Major depressive disorder Dyspnea Bifascicular block Right bundle branch block Surgical History History of permanent cardiac pacemaker placement History of removal of skin mole H/O shoulder surgery H/O cosmetic surgery History of total hip replacement History of total hysterectomy History of section History of colonoscopy History of bariatric surgery History of carpal tunnel release Family History Other Cancer Coronary artery disease Diabetes Heart attack Hypertension Stroke Social History Smoking Status: Former smoker alcohol intake: never substance use type: denies use current occupational status: retired and disabled Travel in the last 8 weeks: None household members: family housing: house number of children: 3 caffeine: Yes [facility] Anesthesia Checklist Structural Data Admitted From: Home Planned Operative Procedure/s: Colonoscopy Consent for Planned Operative Procedure(s) Verified: Yes Verified Documents: Surgical Consent and History and Physical NPO Status Verified Time NPO: 00:00 Additional verifications Anesthesia Reactions: No Airway Assessment Mallampati Score:: Class III C-Spine Mobility Assessed: Yes TMJ Mobility Assessed: Yes Dentition: Good Dentition Neurological Assessment Level of Consciousness: Awake Hx Seizures: No Numbness or tingling in extremities: No Anesthesia Plan Anesthesia Risk discussed: Yes Anesthesia Plan: Verified ASA Class: III Anesthesia Type: MAC
[2024-06-05 07:15] VITALS: O2SAT 95
[2024-06-05 08:16] VITALS: BP 90/57; PULSE 60; RESP 18; TEMP 36.4; O2SAT 94
[2024-06-05 08:26] VITALS: BP 134/70; PULSE 60; RESP 18; TEMP 36.4; O2SAT 96
[2024-06-05 08:36] VITALS: BP 132/72; PULSE 60; RESP 18; TEMP 36.4; O2SAT 100
[2024-06-05 08:46] VITALS: BP 135/68; PULSE 60; RESP 18; TEMP 36.4; O2SAT 98
--- NOTE | 2024-06-05 08:48 | SUR.PHASEII ---
0820- Patients daughter, Aylin called regarding patient being in post-op since she was waiting in the vehicle. Offered for her to come in. She stated she would rather stay in the vehicle since her 2 year old daughter was with her. [id number]- Patient wheeled out via wheelchair to vehicle. Patient and patient's daughter provided discharge instructions at the vehicle. Patient helped into vehicle. Patient stable at time of discharge.
== END 2024-06-05 08:47 | disposition home or self-care (01) ==
PROVIDERS: PCP Nurse Practitioner Family; Visit Provider Surgery
PROC: 0DJD8ZZ Inspection of Lower Intestinal Tract, Via Natural or Artificial Opening Endoscopic (ICD-10-PCS; CPT 45385; principal; 2024-06-05 07:30)
DX: Z09 Encounter for follow-up examination after completed treatment for conditions other than malignant neoplasm (principal); Z86.010 Personal history of colon polyps; D12.3 Benign neoplasm of transverse colon; K57.30 Diverticulosis of large intestine without perforation or abscess without bleeding; Z95.0 Presence of cardiac pacemaker; Z12.11 Encounter for screening for malignant neoplasm of colon
CPT/HCPCS: 45385; 88300; 88305; J2704; J7120

== ENCOUNTER 2024-06-11 15:03 | Outpatient (CLI) | payer MEDICARE, SELFPAY | END 2024-06-11 23:59 | disposition home or self-care (01) | LOC: LAB.DROPOF 06-12 15:04 | PROVIDERS: PCP Nurse Practitioner Family; Visit Provider Nurse Practitioner Family | DX: N39.0 Urinary tract infection, site not specified (principal) | CPT/HCPCS: 87086; 87088; 87186 ==

== ENCOUNTER 2024-09-11 08:15 | Outpatient (CLI) | payer MEDICARE, SELFPAY ==
--- NOTE | 2024-09-11 08:16 | MM_ITS ---
PROCEDURE INFORMATION: Exam: MG Bilateral Screening 3D Mammography Exam date and time: 09/11/2024 8:14 AM Age: 58 years old Clinical indication: Screening examination TECHNIQUE: Imaging protocol: Bilateral Screening tomosynthesis and 2D mammography including computer-aided detection (CAD) when performed. COMPARISON: 1. MG MM DIG SCREENING MAMM BI W/CAD 08/07/2023 4:46 PM 2. MG MM DIG SCREENING MAMM BI W/CAD 06/14/2022 4:51 PM FINDINGS: MAMMOGRAPHY: Breast composition: The breasts are almost entirely fatty. Mass: None. Architectural distortion: None. Calcifications: No suspicious calcifications. Asymmetric density: None. Skin thickening: None. Axillary adenopathy: None. Other findings: A power pack is partially visualized overlying the left chest wall. IMPRESSION: No mammographic evidence of malignancy. Annual screening is recommended unless otherwise clinically indicated. ASSESSMENT: BI-RADS Category 1: Negative.
== END 2024-09-11 23:59 | disposition home or self-care (01) ==
LOC: RAD 08:16
PROVIDERS: PCP Nurse Practitioner Family; Visit Provider Nurse Practitioner Family
DX: Z12.31 Encounter for screening mammogram for malignant neoplasm of breast (principal)
CPT/HCPCS: 77063; 77067

== ENCOUNTER 2024-10-21 06:31 | Outpatient (CLI) | payer MEDICARE, SELFPAY ==
--- NOTE | 2024-10-21 | CA_ITS ---
APPROVED REPORT Exam: Pharmacologic Technologist: Eloisa Payton Ht: 5 ft 3 in Wt: 333 lbs BSA: 2.40 m2 HR: 60 bpm BP: 148/66 mmHg Stress Test Details Test: Lexiscan HR Resting HR: 60 bpm Max Heart Rate (APMHR): 159 bpm Max HR Achieved: 60 bpm Target HR (85% APMHR): 135 bpm % of APMHR: 38 Recovery HR: 60 bpm BP Resting BP: 148.0/66.0 mmHg Max BP: 153.0/60.0 mmHg Recovery BP: 127.0/68.0 mmHg ECG Stress ECG Conclusion Symptoms: Shortness of breath. No chest pain Arrhythmias/Ectopy: None ST-T Changes: EKG non-diagnostic - Lexiscan Electronically signed by : Sachi Rodríguez MD 10/21/2024 12:36:35
--- NOTE | 2024-10-21 06:35 | NM_ITS ---
APPROVED REPORT Exam: Nuclear Stress Test Indication: cad, fm hx, c.p., pre-op Patient Location: Outpatient Stress Tech: Eloisa Payton AR Tech:Dipika Blackburn ALISSAHarshad RT (R)(N)(M) Ht: 5 ft 3 in Wt: 333 lbs Bra Size: 42c HR: 60 bpm BP: 148/60 mmHg BSA: 2.40 m2 TID: 1.11 BMI: 58.9 History: cad, fm hx, c.p., pre-op Procedure: Patient received 0.4 mg of intravenous Lexiscan, resting heart rate 60 bpm, resting blood pressure 148/60 mmHg, with Lexiscan maximum heart rate achieved was 60 bpm which is % of the maximum predicted heart rate and blood pressure was 153/60 mmHg. With Lexiscan, patient denied any complaint of chest pain. Cardiac Stress and Resting SPECT Images: Cardiac Stress and Resting SPECT images were obtained using technetium 99m Myoview 31.4 mCi stress and 10.45 mCi at rest. Technically difficult study due to significant soft tissue overlap with the cardiac borders. This may affect the diagnostic interpretation of the study findings. Resting and stress imaging in supine and prone positions demonstrate a small sized, moderate, reversible perfusion defect in the distal inferior LV wall. There is also a Sized, moderate, partially reversible perfusion defect in the basal to mid lateral LV wall. Gated imaging demonstrates low-normal global LV systolic function. LVEF is calculated at 51%. Conclusion: Technically difficult study. Small sized, moderate, reversible perfusion defect in the distal inferior LV wall. There is also a Sized, moderate, partially reversible perfusion defect in the basal to mid lateral LV wall. Findings are suggestive of partial reversible ischemia. Gated imaging demonstrates low-normal global LV systolic function. LVEF is calculated at 51%. Electronically signed by : Sachi Rodríguez MD 10/21/2024 11:32:15
[2024-10-21] MEDS: SODIUM CHLORIDE 0.9% 10ML SYR (RAD ONLY) 10 ML IV ×2 (06:40→09:08)
[2024-10-21] MEDS: REGADENOSON 0.4MG/5ML SYRINGE 0.4 MG IV (09:07)
[2024-10-21] MEDS: ISOTOPE MYOVIEW (PER STUDY) 1 DOSE IV (09:08)
== END 2024-10-21 23:59 | disposition home or self-care (01) ==
LOC: RAD 06:32
PROVIDERS: PCP Nurse Practitioner Family; Visit Provider Physician Assistant
DX: R07.89 Other chest pain (principal); I10 Essential (primary) hypertension; R60.0 Localized edema; E66.01 Morbid (severe) obesity due to excess calories; Z68.43 Body mass index [BMI] 50.0-59.9, adult; R00.2 Palpitations; I49.3 Ventricular premature depolarization; R94.31 Abnormal electrocardiogram [ECG] [EKG]; I49.5 Sick sinus syndrome
CPT/HCPCS: 78452; 93017; 93018; A9502; J2785

== ENCOUNTER 2024-10-22 09:29 | Day surgery (SDC) | payer MEDICARE, SELFPAY ==
[2024-10-22] VITALS (12 sets, daily range): BP systolic 125–169; BP diastolic 64–81; PULSE 60–87; RESP 15–20; O2SAT 93–96; BMI 59.0
--- NOTE | 2024-10-22 09:02 | IR_ITS ---
APPROVED REPORT Patient Location: Outpatient Home Energy Inspector: CANDIDO Khoury RT (R) PROCEDURES Left heart catheterization Left ventriculogram Selective coronary angiogram INDICATION Abnormal Myoview, Preoperative evaluation Informed consent was obtained prior to the procedure. COMPLICATIONS None Estimated Blood Loss: Less than 10 mls TECHNIQUE One percent lidocaine used to anesthetize the right anterior aspect of the wrist. The right radial artery was accessed via the Seldinger technique. A 6 Yemeni sheath was placed in the right radial artery. 2.5 mg of Verapamil, 800 mcg of nitroglycerin, 1mg Lidocaine and 5000 U Heparin were given through the arterial sheath. The 6 Yemeni JL 3 guide catheter was also used to perform left heart catheterization, left ventriculogram and selective coronary angiogram. At the end of the procedure the sheath was removed good hemostasis was achieved using Traclet band, patient was transferred to the postop holding area in stable condition. ANGIOGRAPHIC RESULTS The left main artery Normal The left anterior descending artery Angiographically normal accompanied by CLEO II flow The circumflex artery Normal The right coronary artery Dominant normal The MISTRY ventriculogram reveals Normal 65% The left ventricular end-diastolic pressure Elevated at 20 to 25 mmHg IMPRESSION Angiographically normal coronary arteries accompanied by slow flow down the LAD consistent with endothelial dysfunction Elevated LVEDP consistent with diastolic dysfunction Normal ejection fraction PLAN 1. Patient is a low and acceptable risk to proceed with elective bladder surgery 2. Treatment of diastolic and endothelial dysfunction Electronically signed by : Geronimo Carreno MD 10/22/2024 11:54:46
[2024-10-22 10:03] LABS: Basophils # 0.1 K/mm3 (0-0.2); Basophils % 0.8 % (0.1-2.0); Eosinophils # 0.2 K/mm3 (0.0-0.4); Hematocrit 47.7 % (37.0-47.0); Hemoglobin 15.4 g/dL (12.2-16.2); Lymphocytes # 2.7 K/mm3 (0.7-4.5); Lymphocytes % 34.8 % (10-50); Mean Corpuscular HGB Conc 32.3 g/dL (31.8-35.4); Mean Corpuscular Hemoglobin 28.4 pg (27.0-31.2); Mean Platelet Volume 10.4 fl (7.4-10.4); Monocytes # 0.4 K/mm3 (0.1-1.0); Neutrophils # 4.3 K/mm3 (1.8-7.8); Neutrophils % 55.9 % (37.0-80.0); Platelet Count 190 K/mm3 (142-424); Red Blood Count 5.42 M/mm3 (4.20-5.40); Red Cell Distribution Width 14.1 % (11.5-17.5); White Blood Count 7.7 K/mm3 (4.8-10.8)
[2024-10-22 10:16] LABS: Chloride 108 mmol/L (98-107); Sodium 139 mmol/L (136-145)
[2024-10-22 10:17] LABS: Potassium 4.2 mmoL/L (3.5-5.1)
[2024-10-22 10:19] LABS: Blood Urea Nitrogen 14 mg/dl (7-17); Creatinine Clearance Estimated 49 mL/min (50-200); Estimated Glomerular Filt Rate 85 ml/min (>60); GFR (African American) 103 ML/MIN (>60)
[2024-10-22 10:20] LABS: Anion Gap 10.2 mEq/L (5-15); Calcium 9.5 mg/dl (8.4-10.2); Carbon Dioxide 25 mmol/L (22.0-30.0); Glucose 106 mg/dl (74-100)
[2024-10-22] MEDS: diphenhydrAMINE 50MG/ML VIAL 50 MG IV (11:15)
[2024-10-22] MEDS: HEPARIN 1,000 UNITS/500ML NS (CATH LAB) 3000 UNIT IV (11:25)
[2024-10-22] MEDS: NITROGLYCERIN 800MCG/8ML SYR (CATH LAB) 800 MCG IA (11:26)
[2024-10-22] MEDS: VERAPAMIL 2.5MG/ML 2ML VIAL 2.5 MG IV (11:26)
[2024-10-22] MEDS: 0.9 % SODIUM CHLORIDE 500 ML 25 ML IV (11:26)
[2024-10-22] MEDS: HEPARIN 1,000 UNITS/ML 10ML VIAL (CATH LAB) 10000 UNIT IV (11:26)
[2024-10-22] MEDS: LIDOCAINE 1% 10ML MDV 20 ML IJ (11:26)
[2024-10-22] MEDS: MIDAZOLAM HCL 1MG/ML 5ML VIAL 1 MG IV (11:49)
[2024-10-22] MEDS: FENTANYL 100MCG/2ML VIAL 50 MCG IV (11:49)
== END 2024-10-22 15:17 | disposition home or self-care (01) ==
PROVIDERS: PCP Nurse Practitioner Family; Visit Provider Internal Medicine
DX: R93.1 Abnormal findings on diagnostic imaging of heart and coronary circulation (principal); R07.89 Other chest pain; I49.5 Sick sinus syndrome; Z95.0 Presence of cardiac pacemaker; E66.01 Morbid (severe) obesity due to excess calories; Z68.43 Body mass index [BMI] 50.0-59.9, adult; E11.9 Type 2 diabetes mellitus without complications; I49.3 Ventricular premature depolarization; Z79.899 Other long term (current) drug therapy
CPT/HCPCS: 80048; 85025; 93458; 99152; C1725; C1769; J1200; J1644; J2250; J3010

== ENCOUNTER 2024-10-30 07:22 | Outpatient (CLI) | payer MEDICARE, SELFPAY ==
[2024-10-30 17:53] LABS: Coronavirus 19, PCR Not Detected (NotDetected); Influenza A, PCR Not Detected (NotDetected); Influenza B, PCR Not Detected (NotDetected)
== END 2024-10-30 23:59 | disposition home or self-care (01) ==
LOC: LAB.DROPOF 10-31 07:22
PROVIDERS: PCP Student in an Organized Health Care Education/Training Program; Visit Provider Student in an Organized Health Care Education/Training Program
DX: R11.2 Nausea with vomiting, unspecified (principal); B34.9 Viral infection, unspecified; Z20.828 Contact with and (suspected) exposure to other viral communicable diseases; J45.40 Moderate persistent asthma, uncomplicated
CPT/HCPCS: 87636

== ENCOUNTER 2024-11-19 15:23 | Outpatient (CLI) | payer MEDICARE, SELFPAY ==
--- NOTE | 2024-11-19 15:28 | XR_ITS ---
FINAL REPORT CLINICAL HISTORY: cough/ congestion, soa pt has had asthma since covid former smoker x 15 yrs, quit 2004 COMPARISON: 11/27/2023 FINDINGS: 2 views of the chest were obtained . Left-sided pacemaker is in place. The heart mildly enlarged. There is a moderate size hiatal hernia. The mediastinum is within normal limits. There is evidence of old calcified granulomatous disease. The lungs are otherwise clear. There is no pneumothorax. Osseous structures are unremarkable. IMPRESSION: Chronic changes without acute process. Reviewed, Interpreted and Dictated by Berenice Beck MD Transcribed by Marielena Butler Authenticated and [facility]
[2024-11-19 15:59] LABS: Coronavirus 19, PCR Not Detected (NotDetected); Influenza B, PCR Not Detected (NotDetected)
[2024-11-19 19:58] LABS: Influenza A, PCR Detected (NotDetected)
== END 2024-11-19 23:59 | disposition home or self-care (01) ==
LOC: RAD 15:23
PROVIDERS: PCP Nurse Practitioner Family; Visit Provider Student in an Organized Health Care Education/Training Program
DX: R05.9 Cough, unspecified (principal); R52 Pain, unspecified; J10.1 Influenza due to other identified influenza virus with other respiratory manifestations; J20.9 Acute bronchitis, unspecified
CPT/HCPCS: 71046; 87636

== ENCOUNTER 2024-11-29 10:37 | Emergency (ER) | payer MEDICARE, SELFPAY ==
[2024-11-29] VITALS (7 sets, daily range): BP systolic 116–148; BP diastolic 58–97; PULSE 62–83; RESP 19–22; TEMP 36.7; O2SAT 95–97; BMI 56.3
--- NOTE | 2024-11-29 10:49 | PC.NURSE ---
DR GONZALEZ AT BEDSIDE
--- NOTE | 2024-11-29 10:55 | XR_ITS ---
PROCEDURE INFORMATION: Exam: XR Chest Exam date and time: 11/29/2024 10:54 AM Age: 59 years old Clinical indication: Cough; Additional info: Productive cough TECHNIQUE: Imaging protocol: Radiologic exam of the chest. Views: 2 views. COMPARISON: CR XR CHEST 2V 11/19/2024 3:33 PM FINDINGS: Tubes, catheters and devices: Transvenous pacemaker leads in the heart Lungs: Calcified granulomas bilaterally . No focal consolidation Pleural spaces: Unremarkable. No pleural effusion. No pneumothorax. Heart/Mediastinum: Small hiatal hernia. Stable cardiac silhouette Bones/joints: Unremarkable. IMPRESSION: No focal consolidation
--- NOTE | 2024-11-29 10:55 | XR_ITS ---
PROCEDURE INFORMATION: Exam: XR Right Tibia and Fibula Exam date and time: 11/29/2024 10:56 AM Age: 59 years old Clinical indication: Injury or trauma; Fall; Other: Pain; Additional info: Fall posterior tenderness TECHNIQUE: Imaging protocol: Radiologic exam of the right tibia and fibula. Views: 2 views. COMPARISON: CR XR KNEE RT 2V 05/12/2019 8:17 AM FINDINGS: Bones/joints: Multiple lucencies in the patella may represent nondisplaced fractures. Recommend dedicated images of the knee especially the sunrise view to better delineate the fractures. Tricompartmental joint space narrowing and osteophyte formation consistent with degenerative changes. No acute fracture of the tibia or fibula. Soft tissues: Soft tissue swelling of the knee IMPRESSION: 1. Multiple lucencies in the patella may represent nondisplaced fractures. Recommend dedicated images of the knee especially the sunrise view to better delineate the fractures. 2. Tricompartmental joint space narrowing and osteophyte formation consistent with degenerative changes. 3. No acute fracture of the tibia or fibula.
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
[2024-11-29 11:10] LABS: Lactate Venous 1.6 mmol/L (0.4-2.0); VBG Base Excess 3.2 mmol/L (-2.4-2.3); VBG HCO3 27.4 mmol/L (23-30); VBG Oxygen Saturation 73.1 % (50-70); VBG PCO2 41.9 mmol/L (35-51); VBG PH 7.43 mmol/L (7.31-7.41); VBG PO2 36.7 mmol/L (28-40); VBG Total CO2 28.7 mmol/L (23-27)
[2024-11-29 11:13] LABS: Basophils # 0.1 K/mm3 (0-0.2); Basophils % 0.5 % (0.1-2.0); Eosinophils # 0.2 K/mm3 (0.0-0.4); Eosinophils % 1.4 % (0.1-12.0); Hematocrit 43.7 % (37.0-47.0); Hemoglobin 14.8 g/dL (12.2-16.2); Lymphocytes # 2.4 K/mm3 (0.7-4.5); Lymphocytes % 20.1 % (10-50); Mean Corpuscular HGB Conc 33.9 g/dL (31.8-35.4); Mean Corpuscular Volume 85.7 fl (81-99); Mean Platelet Volume 10.3 fl (7.4-10.4); Monocytes # 0.8 K/mm3 (0.1-1.0); Monocytes % 6.6 % (1.7-9.3); Neutrophils # 8.3 K/mm3 (1.8-7.8); Neutrophils % 70.5 % (37.0-80.0); Platelet Count 159 K/mm3 (142-424); White Blood Count 11.8 K/mm3 (4.8-10.8)
[2024-11-29 11:16] LABS: Albumin Level 3.9 g/dl (3.5-5.0); Chloride 103 mmol/L (98-107); Potassium 3.1 mmoL/L (3.5-5.1); Sodium 141 mmol/L (136-145)
[2024-11-29 11:18] LABS: Blood Urea Nitrogen 16 mg/dl (7-17); Creatinine Clearance Estimated 49 mL/min (50-200); Estimated Glomerular Filt Rate 56 ml/min (>60); GFR (African American) 68 ML/MIN (>60)
[2024-11-29 11:19] LABS: Alanine Aminotransferase 49 U/L (12-78); Albumin/Globulin Ratio 1.4 (1.1-1.8); Alkaline Phosphatase 116 U/L (38-126); Anion Gap 9.1 mEq/L (5-15); Aspartate Amino Transferase 59 U/L (14-36); Bilirubin,Total 1.5 mg/dl (0.2-1.3); Calcium 8.9 mg/dl (8.4-10.2); Carbon Dioxide 32 mmol/L (22.0-30.0); Globulin 2.7 g/dL (1.3-3.2); Glucose 121 mg/dl (74-100); Total Protein,Serum 6.6 g/dl (6.3-8.2)
--- NOTE | 2024-11-29 11:25 | PC.NURSE ---
ROUNDED ON THE PT. THE PT VOICES THAT SHE DOES NOT NEED ANYTHING AT THIS TIME. CALL LIGHT IS WITHIN REACH OF THE PT.
[2024-11-29] MEDS: IPRATROPIUM/ALBUTEROL 3 ML NEB 6 ML IH (11:28)
--- NOTE | 2024-11-29 12:00 | PC.NURSE ---
DR GONZALEZ AT BEDSIDE
--- NOTE | 2024-11-29 12:03 | CT_ITS ---
PROCEDURE INFORMATION: Exam: CT Right Lower Extremity, Knee Exam date and time: 11/29/2024 12:13 PM Age: 59 years old Clinical indication: Pain; Knee; Right; Additional info: Chronic R knee pain TECHNIQUE: Imaging protocol: CT of the right lower extremity without contrast was performed. Exam focused on the knee. Radiation optimization: All CT scans at this facility use at least one of these dose optimization techniques: automated exposure control; mA and/or kV adjustment per patient size (includes targeted exams where dose is matched to clinical indication); or iterative reconstruction. COMPARISON: CR XR KNEE RT 2V 05/12/2019 8:17 AM FINDINGS: Bones/joints: There is a lucency through the superior pole of the patella consistent with nondisplaced fracture. (Series 1001, image 45, 46).. Longitudinal lucency through the patella (series 1001, image 42, 43; series 3, image 41) may represent nondisplaced fracture of unknown age, acute or subacute. Tricompartmental degenerative changes in the knee. Soft tissues: Soft tissue swelling of the knee. IMPRESSION: 1. There is a lucency through the superior pole of the patella consistent with nondisplaced fracture. (Series 1001, image 45, 46).. 2. Longitudinal lucency through the patella (series 1001, image 42, 43; series 3, image 41) may represent nondisplaced fracture of unknown age, acute or subacute.
[2024-11-29] MEDS: POTASSIUM CHLORIDE 20MEQ TAB 40 MEQ PO (12:04)
[2024-11-29 12:15] LABS: Magnesium 1.5 mg/dl (1.6-2.3)
[2024-11-29 12:23] LABS: HIV Combo NEGATIVE (Negative)
--- NOTE | 2024-11-29 12:29 | PC.NURSE ---
ROUNDED ON THE PT. THE PT VOICES THAT SHE DOES NOT NEED ANYTHING AT THIS TIME. CALL LIGHT IS WITHIN REACH OF THE PT.
[2024-11-29 12:31] LABS: Hepatitis C Ab Qual. W/ RFX NEGATIVE (Negative)
--- NOTE | 2024-11-29 13:19 | PC.NURSE ---
Dr. Swan at bedside
--- NOTE | 2024-11-29 13:24 | PC.NURSE ---
1320hrs patient placed in a knee immobilizer. [id number] Becca contacted for walker to assist patient.
--- NOTE | 2024-11-29 13:48 | PC.NURSE ---
ROUNDED ON THE PT. THE PT VOICES THAT SHE DOES NOT NEED ANYTHING AT THIS TIME. CALL LIGHT IS WITHIN REACH OF THE PT.
== END 2024-11-29 13:57 | disposition home or self-care (01) ==
PROVIDERS: Emergency Provider Emergency Medicine; PCP Nurse Practitioner Family
DX: S82.001A Unspecified fracture of right patella, initial encounter for closed fracture (principal); R06.02 Shortness of breath; R05.9 Cough, unspecified; M79.671 Pain in right foot; M79.604 Pain in right leg; W01.0XXA Fall on same level from slipping, tripping and stumbling without subsequent striking against object, initial encounter; Y93.89 Activity, other specified; Y92.9 Unspecified place or not applicable
CPT/HCPCS: 71046; 73590; 73700; 80053; 82803; 83735; 85025; 86803; 87389; 99284; J7620

== ENCOUNTER 2024-11-30 10:20 | Outpatient (RCR) | payer MEDICARE, SELFPAY | END 2024-11-30 23:59 | disposition home or self-care (01) | LOC: PT 10:20 | PROVIDERS: Visit Provider Physician Assistant | DX: M25.561 Pain in right knee (principal); S82.001A Unspecified fracture of right patella, initial encounter for closed fracture | CPT/HCPCS: 97760 ==

== ENCOUNTER 2024-12-02 16:43 | Outpatient (CLI) | payer MEDICARE, SELFPAY ==
[2024-12-02 19:50] LABS: Basophils # 0.1 K/mm3 (0-0.2); Basophils % 0.5 % (0.1-2.0); Eosinophils # 0.3 K/mm3 (0.0-0.4); Hematocrit 45.1 % (37.0-47.0); Hemoglobin 14.4 g/dL (12.2-16.2); Lymphocytes # 2.2 K/mm3 (0.7-4.5); Lymphocytes % 16.9 % (10-50); Mean Corpuscular HGB Conc 31.9 g/dL (31.8-35.4); Mean Corpuscular Hemoglobin 28.5 pg (27.0-31.2); Mean Corpuscular Volume 89.3 fl (81-99); Mean Platelet Volume 11.8 fl (7.4-10.4); Monocytes # 0.9 K/mm3 (0.1-1.0); Monocytes % 6.4 % (1.7-9.3); Neutrophils # 9.7 K/mm3 (1.8-7.8); Neutrophils % 73.4 % (37.0-80.0); Platelet Count 163 K/mm3 (142-424); Red Blood Count 5.05 M/mm3 (4.20-5.40); White Blood Count 13.2 K/mm3 (4.8-10.8)
[2024-12-02 20:14] LABS: Alanine Aminotransferase 34 U/L (12-78); Albumin Level 3.8 g/dl (3.5-5.0); Albumin/Globulin Ratio 1.5 (1.1-1.8); Alkaline Phosphatase 108 U/L (38-126); Aspartate Amino Transferase 40 U/L (14-36); Bilirubin,Total 1.1 mg/dl (0.2-1.3); Blood Urea Nitrogen 14 mg/dl (7-17); Calcium 9.1 mg/dl (8.4-10.2); Carbon Dioxide 31 mmol/L (22.0-30.0); Chloride 104 mmol/L (98-107); Chol/HDL Ratio 3.5 (1-3.5); Cholesterol 149 mg/dl (140-200); Estimated Glomerular Filt Rate 73 ml/min (>60); GFR (African American) 88 ML/MIN (>60); Globulin 2.6 g/dL (1.3-3.2); Glucose 80 mg/dl (74-100); HDL Cholesterol 42 mg/dl (40-60); Magnesium 1.6 mg/dl (1.6-2.3); Sodium 140 mmol/L (136-145); Total Protein,Serum 6.4 g/dl (6.3-8.2); Triglycerides 167 mg/dl (30-150); VLDL Cholesterol 33 mg/dL (0-40)
[2024-12-02 20:28] LABS: Direct LDL Cholesterol 44.85 mg/dL (100-129)
[2024-12-02 20:35] LABS: 25-OH Vitamin D, Total 27.8 ng/mL (30-100)
[2024-12-02 20:50] LABS: Thyroid Stimulating Hormone 1.97 uIU/mL (0.465-4.68)
[2024-12-02 21:32] LABS: Iron 77 ug/dL (37-170); Vitamin B12 615 pg/mL (239-931)
[2024-12-02 21:41] LABS: Total Iron Binding Capacity 244 ug/dL (265-497)
[2024-12-02 22:08] LABS: Ferritin 177 ng/ml (11.1-264)
== END 2024-12-02 23:59 | disposition home or self-care (01) ==
LOC: LAB.DROPOF 12-03 16:44
PROVIDERS: PCP Family Medicine; Visit Provider Family Medicine
DX: E87.6 Hypokalemia (principal); E78.5 Hyperlipidemia, unspecified; D64.9 Anemia, unspecified; Z68.43 Body mass index [BMI] 50.0-59.9, adult; E66.01 Morbid (severe) obesity due to excess calories; E83.42 Hypomagnesemia; R53.83 Other fatigue
CPT/HCPCS: 80053; 80061; 82306; 82607; 82728; 83540; 83550; 83735; 84443; 85025

== ENCOUNTER 2024-12-10 08:30 | Outpatient (CLI) | payer MEDICARE, SELFPAY ==
[2024-12-10 20:13] LABS: Chloride 104 mmol/L (98-107); Sodium 142 mmol/L (136-145)
[2024-12-10 20:14] LABS: Potassium 4.5 mmoL/L (3.5-5.1)
[2024-12-10 20:16] LABS: Anion Gap 12.5 mEq/L (5-15); Blood Urea Nitrogen 17 mg/dl (7-17); Calcium 9.4 mg/dl (8.4-10.2); Carbon Dioxide 30 mmol/L (22.0-30.0); Estimated Glomerular Filt Rate 50 ml/min (>60); GFR (African American) 61 ML/MIN (>60); Glucose 56 mg/dl (74-100)
[2024-12-10 20:17] LABS: Magnesium 1.9 mg/dl (1.6-2.3)
== END 2024-12-10 23:59 | disposition home or self-care (01) ==
LOC: LAB.DROPOF 12-14 15:57
PROVIDERS: PCP Family Medicine; Visit Provider Family Medicine
DX: E83.42 Hypomagnesemia (principal); E87.6 Hypokalemia
CPT/HCPCS: 80048; 83735

== ENCOUNTER 2024-12-25 11:00 | Outpatient (RCR) | payer MEDICARE, SELFPAY ==
--- NOTE | 2024-12-16 12:10 | HMH.PTOPEV ---
PT Outpatient Evaluation Rehab PT Outpatient Evaluation Start: 12/16/24 11:02 Freq: Status: Active Protocol: Document 12/16/24 11:02 RYAN (Rec: 12/16/24 12:10 RYAN [id number]) E-signed By Anahy Ojeda, PT Outpatient Therapy Subjective History Subjective History Pt is a 59 y/o female who reports to PT for a R patella fracture. Pt states she fell at home 3 weeks ago landing on both knees resulting in R knee pain. Pt had a CT scan of her R knee on 11/29/24 with impression of 1.There is a lucency through the superior pole of the patella consistent with nondisplaced fracture. Longitudinal lucency through the patella may represent nondisplaced fracture of unknown age, acute or subacute . Pt reports pain along the front of her knee that is aggravated by standing, walking, and stair climbing. Pt reports she has 4 steps to enter her home she is traversing without issue. Pt denies paresthesia or swelling . Pt reports she is wearing the knee immobilizer set to 0- 30 as instructed and using a SPC for ambulation, states she is unable to use a RW due to taking care of her grandchild. Pt reports she returns to ortho on 12/28/24 for her next follow-up session. Medical History: Asthma, PACEMAKER, Sleep apnea, Hx L CORDELIA, Restless leg syndrome, stress incontinence with sacral nerve stimulator, low potassium New diagnosis of cancer in past 12 No months? Chief Complaint Pain,Gives out/Unstable, Weakness Symptom Type Sharp Symptoms Relieved By Rest/Positioning,OTC Meds, Elevation Symptoms Aggravated By Standing,Physical Activity, Twisting,Walking Current Functional Limitations Lifting,Housework,Standing, Squatting,Recreation Activity, Walking,Stairs,Balance Symptom Description Constant but Variable Level of pain today (0-10) 7 Pain scale - at its best (0-10) 1 Pain scale - at its worst (0-10) 10 Hip/Knee Eval Gait Observation General Gait Pattern Observation Antalgic Gait,Decrease Weight Bear (R),Decrease Stride Lngth (R) Assistive Device Assistive Devices Straight Cane Palpation Tenderness right Knee Palpation Finding Tenderness Knee Palpation Overall Comment 3/4 superior and inferior pole of the patella MMT Hip Flexion Strength Grade 4- Good- Hip Abduction Strength Grade 4- Good- Hip Adduction Strength Grade 4- Good- Hip Extension Strength Grade 4- Good- Knee Extension Strength Grade 4- Good- Knee Flexion Strength Grade Not Tested ROM Knee Extension Active Range of Motion ( 0 degrees) Knee Flexion Active Range of Motion ( 30 degrees) Effusion joint effusion knee exam standard right Mid - Patellar Circumerential Measure ( 64 cm) Lower Extremity Functional Index Activities Today, do you or would you have any difficulty at all with: a.Any of your usual work, housework or Moderate difficulty school activities b. Your usual hobbies, recreational or Moderate difficulty sporting activities c. Getting into or out of the bath A little bit of difficulty d. Walking between rooms No difficulty e. Putting on your shoes or socks Moderate difficulty f. Squatting Quite a bit of difficulty g. Lifting an object, like a bag of Moderate difficulty groceries from the floor h. Performing light activities around A little bit of difficulty your home i. Performing heavy activities around Extreme difficulty or unable your home to perform activity j. Getting into or out of a car Moderate difficulty k. Walking 2 blocks Extreme difficulty or unable to perform activity l. Walking a mile Extreme difficulty or unable to perform activity m. Going up or down 10 stairs (about 1 Moderate difficulty flight of stairs) n. Standing for 1 hour A little bit of difficulty o. Sitting for 1 hour A little bit of difficulty p. Running on even ground Extreme difficulty or unable to perform activity q. Running on uneven ground Extreme difficulty or unable to perform activity r. Making sharp turns while running fast Extreme difficulty or unable to perform activity s. Hopping Extreme difficulty or unable to perform activity t. Rolling over in bed Moderate difficulty LEFI Score Lower Extremity Functional Index Score 31 Outpatient Therapy Assessment Impairments Problems/Impairmments Palpation Tenderness,Impaired Range of Motion,Impaired Strength,Impaired Gait Pattern ,Impaired Walking,Impaired Standing,Impaired Lifting, Impaired Household Care, Impaired Stair Climbing, Impaired Incline Stepping, Impaired Stepping on Uneven Surface,Impaired Squatting, Impaired Balance,Increased Edema,Subjective C/O Pain, Impaired Self Care/Self Management Prognosis Rehab Potential Good Clinical Impression Consistent with Diagnosis Yes Short Term Goals Number of Weeks 4 Increase Range of Motion Yes: Improve R knee AROM to 0- 90 Improve LEFI Score Yes: Improve score to 41/80 to improve overall QOL Decrease Subjective C/O Pain Yes: Improve pain at worst to 8/10 to improve overall QOL Improve Self Care/Self Management Yes Patient to be Ind w/ HEP Yes Senior Living Goals Number of Weeks 6-8 Increase Range of Motion Yes: Improve R knee AROM to 0- 120 to assist with gait/ function Increase Strength Yes: Improve RLE MMT to 4-4+/5 grossly to assist with function Improve Gait Pattern without Assistive Yes: demonstrate proper gait Device mechanics without AD to decrease fall risk Improve Ability to Climb Stairs Yes: 1 flight without pain to assist with home/community navigation Improve LEFI Score Yes: Improve score to 51/80 to improve overall QOL Decrease Subjective C/O Pain Yes: Improve pain at worst to 6/10 to improve overall QOL Outpatient Therapy Plan of Care Treatment Plan May Include Therapeutic Exercise Including Home Yes Exercise Program Manual Therapy Techniques Yes Neuromuscular Re-education Yes Therapeutic Activities to Return to Yes Previous Functional/Work Level Gait Training Yes ADL/Self Care Education Yes Dry Needling Yes Thermal Modalities Yes Electrical Stimulation Yes Ultrasound/Phonophoresis Yes Iontophoresis Yes Orthotics/Bracing/Splinting Yes Vasopneumatic Compression Pump Yes Massage Yes Manual Lymphatic Drainage Yes Group Therapy for Medicare Yes Eval/Re-Eval Yes Frequency Times per week 2-3 Duration Number of Weeks 6-8 Addendums This patient is a candidate for social No or vocational rehab? Patient/Guardian verbally acknowledges Yes understanding of treatment program and consents to further treatment? Patient/Guardian verbally acknowledges Yes understanding of diagnosis, prognosis and goals for treatment? Eval Complexity PT Charges 00593 - Moderate Complexity Shoulder/Elbow Eval Shoulder Objective Measurements Elbow Objective Measurements PHYSICIAN CERTIFICATION: I certify the specified therapy services for Vianca Dina Cardenas are required, authorized, and reviewed every 30 days.
== END 2024-12-25 23:59 | disposition home or self-care (01) ==
LOC: PT 11:00
PROVIDERS: PCP Family Medicine; Visit Provider Physician Assistant
DX: M25.561 Pain in right knee (principal); S82.001A Unspecified fracture of right patella, initial encounter for closed fracture
CPT/HCPCS: 97110; 97163

== ENCOUNTER 2024-12-28 09:03 | Outpatient (CLI) | payer MEDICARE, SELFPAY ==
--- NOTE | 2024-12-28 09:07 | XR_ITS ---
FINAL REPORT CLINICAL HISTORY: right knee fx..pain COMPARISON: CT 11/29/2024 FINDINGS: AP, lateral and oblique views of the right knee were obtained. There is no acute fracture or dislocation. On sunrise view, a lucency through the medial patella is unchanged from the prior CT scan and could be due to nondisplaced subacute or chronic fracture. Small lucency through the superior patella on the lateral view is unchanged and likely chronic. There is tricompartmental degenerative disease. There is no joint effusion or other acute soft tissue abnormality. IMPRESSION: Stable lucency medial patella could be a nondisplaced subacute or chronic fracture. Unchanged lucency superior patella, likely chronic. Reviewed, Interpreted and Dictated by Gregoria Sun MD Transcribed by Vianca Dior Authenticated and [facility]
== END 2024-12-28 23:59 | disposition home or self-care (01) ==
LOC: RAD 09:04
PROVIDERS: PCP Nurse Practitioner Family; Visit Provider Physician Assistant
DX: M25.561 Pain in right knee (principal)
CPT/HCPCS: 73562

== ENCOUNTER 2025-01-05 09:24 | Outpatient (CLI) | payer MEDICARE, SELFPAY ==
[2025-01-05 09:48] LABS: Adenovirus F 40/41, stool Not Detected (NotDetected); Astrovirus Not Detected (NotDetected); Clostridium Difficile A/B, PCR Not Detected (NotDetected); Cryptosporidium Not Detected (NotDetected); Cyclospora Cayetanesis Not Detected (NotDetected); Entamoeba histolytica Not Detected (NotDetected); Enteroaggregative E coli Not Detected (NotDetected); Enteropathogenic E coli Not Detected (NotDetected); Enterotoxigenic E coli Not Detected (NotDetected); Giardia lamblia Not Detected (NotDetected); Norovirus Not Detected (NotDetected); Plesimonas Shigalloides, PCR Not Detected (NotDetected); Rotavirus A Not Detected (NotDetected); Salmonella, PCR Not Detected (NotDetected); Sapovirus Not Detected (NotDetected); Shiga-like toxin E coli Not Detected (NotDetected); Shigella Enterovasive E coli Not Detected (NotDetected); Vibrio Cholerae Not Detected (NotDetected); Vibrio, PCR Not Detected (NotDetected); Yersinia Entercolitica, PCR Not Detected (NotDetected)
[2025-01-05 17:57] LABS: Campylobacter Detected (NotDetected)
--- NOTE | 2025-01-05 19:08 | PC.NURSE ---
STOOL RESULTS DISCUSSED WITH DR GRIMM, ATTEMPTED TO CONTACT PT. NO ANSWER. LEFT MESSAGE
--- NOTE | 2025-01-06 13:24 | PC.NURSE ---
I spoke with the pt relaying her campylobacter results. She is still having some diarrhea and plans to follow up with her pcp today.
== END 2025-01-05 23:59 | disposition home or self-care (01) ==
PROVIDERS: PCP Family Medicine; Visit Provider Student in an Organized Health Care Education/Training Program
DX: A04.9 Bacterial intestinal infection, unspecified (principal); R19.7 Diarrhea, unspecified
CPT/HCPCS: 87507

== ENCOUNTER 2025-01-14 20:54 | Outpatient (CLI) | payer MEDICARE, SELFPAY ==
--- NOTE | 2025-01-06 11:26 | PC.NURSE ---
I spoke with the pt about her positive campylobacter diarrhea panel results. pt states she is still having diarrhea. She states she is going to call her PCP today to follow up.
[2025-01-14 21:25] LABS: Basophils # 0.1 K/mm3 (0-0.2); Basophils % 0.8 % (0.1-2.0); Eosinophils # 0.3 K/mm3 (0.0-0.4); Eosinophils % 3.4 % (0.1-12.0); Hematocrit 43.6 % (37.0-47.0); Hemoglobin 14.1 g/dL (12.2-16.2); Lymphocytes # 2.3 K/mm3 (0.7-4.5); Lymphocytes % 28.1 % (10-50); Mean Corpuscular HGB Conc 32.3 g/dL (31.8-35.4); Mean Corpuscular Hemoglobin 29.4 pg (27.0-31.2); Mean Platelet Volume 10.8 fl (7.4-10.4); Monocytes # 0.4 K/mm3 (0.1-1.0); Monocytes % 4.2 % (1.7-9.3); Neutrophils # 5.2 K/mm3 (1.8-7.8); Neutrophils % 62.8 % (37.0-80.0); Nucleated Red Blood Cells # 0 10^3/uL; Nucleated Red Blood Cells % 0 %; Platelet Count 229 K/mm3 (142-424); Red Blood Count 4.79 M/mm3 (4.20-5.40); Red Cell Distribution Width 15.6 % (11.5-17.5); Red Cell Distribution Width-SD 51.8 fL; White Blood Count 8.3 K/mm3 (4.8-10.8)
[2025-01-14 21:47] LABS: Alanine Aminotransferase 18 U/L (12-78); Albumin Level 3.4 g/dl (3.5-5.0); Albumin/Globulin Ratio 1.1 (1.1-1.8); Alkaline Phosphatase 96 U/L (38-126); Anion Gap 15.5 mEq/L (5-15); Aspartate Amino Transferase 31 U/L (14-36); Bilirubin,Total 0.8 mg/dl (0.2-1.3); Blood Urea Nitrogen 10 mg/dl (7-17); Calcium 9.1 mg/dl (8.4-10.2); Carbon Dioxide 28 mmol/L (22.0-30.0); Chloride 101 mmol/L (98-107); Estimated Glomerular Filt Rate 73 ml/min (>60); GFR (African American) 88 ML/MIN (>60); Globulin 3.2 g/dL (1.3-3.2); Glucose 124 mg/dl (74-100); Potassium 3.5 mmoL/L (3.5-5.1); Sodium 141 mmol/L (136-145); Total Protein,Serum 6.6 g/dl (6.3-8.2)
== END 2025-01-14 23:59 | disposition home or self-care (01) ==
LOC: LAB 20:54
PROVIDERS: PCP Family Medicine; Visit Provider Family Medicine
DX: Z00.00 Encounter for general adult medical examination without abnormal findings (principal); E83.10 Disorder of iron metabolism, unspecified; D64.9 Anemia, unspecified
CPT/HCPCS: 80053; 85025

== ENCOUNTER 2025-07-01 21:53 | Emergency (ER) | payer MEDICARE, SELFPAY ==
[2025-07-01 21:57] VITALS: BP 145/65; PULSE 60; O2SAT 95
--- OUTSIDE RECORDS SUMMARY | 2025-07-01 21:59 | XMS_ITS | Data Portability ---
Author Organization [facility] [place] Address [address] [place] [phone] Assessment No assessment recorded. Plan of Treatment Reminders Order Date Submit Date Provider Last Modified By Organization Details Last Modified Time Details Appointments None recorded. Lab urinalysis , dipstick [email or web address], [address], 13:35:05 Referral None recorded. Procedures None recorded. Surgeries None recorded. Imaging None recorded. Medication Orders None recorded. Patient TargetsNo targets recorded. Patient InstructionsNo instructions recorded. Reason for Referral None Reported. Results Created Date Observation Date Name Description Value Unit Range Abnormal Flag Note LastModifiedBy Organization Detail LastModifiedTime 07/31/2007/31/2023 urina lysis , dipst ick Leukocytes (reference range) small Not Available [address], [address], 07/31/2023 12:03:57 07/31/2007/31/2023 urina lysis , dipst ick Nitrite (reference range:) negati ve Not Available Ovi Mahendra [address], [address], 07/31/2023 12:03:57 07/31/2007/31/2023 urina lysis , dipst ick Urobilinogen (reference range) 1 Not Available [address], [address], 07/31/2023 12:03:57 07/31/2007/31/2023 urina lysis , dipst ick Protein (reference range) negati ve Not Available [address], [address], 07/31/2023 12:03:57 07/31/2007/31/2023 urina lysis , dipst ick pH (reference range 5-8.5) 5.0 Not Available [address], [address], 07/31/2023 12:03:57 07/31/2007/31/2023 urina lysis , dipst ick Blood (reference range:) negati ve Not Available [address], [address], 07/31/2023 12:03:57 07/31/2007/31/2023 urina lysis , dipst ick Specific [place] (reference range) 1.025 Not Available [address], [address], 07/31/2023 12:03:57 07/31/2007/31/2023 urina lysis , dipst ick Ketone (reference range) trace Not Available [address], [address], 07/31/2023 12:03:57 07/31/2007/31/2023 urina lysis , dipst ick Bilirubin (reference range) small Not Available [address], [address], 07/31/2023 12:03:57 07/31/2007/31/2023 urina lysis , dipst ick Glucose (reference range) negati ve Not Available [address], [address], 07/31/2023 12:03:57 Result Notes None recorded. Problems Name Problem SNOMED Code Status Onset Date Resolution Date Notes Provider Name and Address Organization Details Recorded Time Anemia 289908970 Active 2022 Elly hines, [facility] [place] 3 11:39:10 Hypertensive disorder 02051674 Active 2022 Elly hines, [facility] [place] 3 11:39:16 Sleep apnea 67399355 Active 2022 Elly hines, DESTIN - [facility] & [place] 11:39:25 Asthma 181855771 Active 2022 Elly hines, DESTIN - [facility] - [facility] & [place] 3 11:39:33 Arthritis 6172046 Active 2022 Elly hines, DESTIN - [facility] - [facility] & [place] 3 11:39:41 Anxiety 41602214 Active 2022 Elly hines, DESTIN - [facility] - [facility] [place] 11:39:48 Depressive disorder 89563487 Active 2022 Elly hines, DESTIN - [facility] - [facility] & [place] 3 11:42:00 Problem Notes None recorded. Procedures Surgical History Date Name Laterality Status Provider Name and Address Organization Details Recorded Time Total Hysterectomy completed Elly WEIR - [facility] [place] 07/31/2023 11:43:17 complete repair of rotator cuff completed Elly WEIR - [facility] & [place] 07/31/2023 11:43:38 Imaging Results None recorded. Procedure Notes None recorded. Medical Equipment None Reported. Allergies No known drug allergies Medications Name Sig Start Date Stop Date Status Note LastModified by Organization Details LastModified Time fluconazole 100 mg tablet TAKE ONE TABLET BY MOUTH ONCE DAILY FOR 10 DAYS -- FINISH ALL MEDICINE -- active Not Available Not Available Not Available fluticasone 250 mcg-salmeter ol 50 mcg/dose blistr powdr for inhalation INHALE 1 PUFF BY MOUTH TWICE DAILY --RINSE MOUTH AFTER USE-- active Not Available Not Available No t Available ketoconazole 2 % shampoo USE as a shampoo TO THE SCALP three times WEEKLY (Lather FOR 5 MINUTES THEN RINSE) active Not Available Not Available Not Available cetirizine 10 mg tablet TAKE ONE TABLET BY MOUTH EVERY DAY FOR ALLERGY symptoms active Not Available Not Available No t Available oxybutynin chloride ER 10 mg tablet,exten ded release 24 hr 1 tablet qd 2022 active Not Available Not Available Not Avai lable minocycline 100 mg capsule TAKE ONE CAPSULE BY MOUTH TWICE DAILY FOR 10 DAYS -- FINISH ALL MEDICINE -- active Not Available Not Available Not Available hydroxyzine pamoate 50 mg capsule TAKE ONE CAPSULE BY MOUTH EVERY DAY IN THE MORNING FOR ANXIETY active Not Available Not Available No t Available sulfamethoxa zole 800 mg-trimethop rim 160 mg tablet TAKE ONE TABLET BY MOUTH TWICE DAILY FOR 5 DAYS -- FINISH ALL MEDICINE -- active Not Available Not Available Not Available ondansetron 8 mg disintegrati ng tablet DISSOLVE ONE TABLET in MOUTH EVERY 8 HOURS NEEDED FOR NAUSEA AND VOMITING active Not Available Not Available No t Available bisoprolol fumarate 5 mg tablet TAKE ONE TABLET BY MOUTH EVERY DAY active Not Available Not Available No t Available modafinil 200 mg tablet TAKE ONE TABLET BY MOUTH EVERY DAY FOR hypersomnia with chaparrita active Not Available Not Available No t Available amlodipine 10 mg tablet TAKE ONE TABLET BY MOUTH EVERY DAY active Not Available Not Available No t Available cephalexin 500 mg capsule TAKE ONE CAPSULE BY MOUTH THREE TIMES DAILY FOR 10 DAYS -- FINISH ALL MEDICINE -- active Not Available Not Available Not Available oseltamivir 75 mg capsule TAKE ONE CAPSULE BY MOUTH EVERY TWELVE HOURS FOR 5 DAYS -- FINISH ALL MEDICINE -- active Not Available Not Available Not Available triamcinolon e acetonide 0.1 % topical ointment apply topically TO red tender RASH ON body AND TO wound in THE groin TWICE DAILY -do not USE ON face- active Not Available Not Available No t Available pramipexole 0.25 mg tablet TAKE ONE TABLET BY MOUTH EVERY DAY AT BEDTIME active Not Available Not Available No t Available omeprazole 20 mg capsule,abrahan yed release TAKE ONE CAPSULE BY MOUTH EVERY DAY active Not Available Not Available No t Available mupirocin 2 % topical ointment APPLY TOPICALLY TO affected ulcer(s) TWICE DAILY DIRECTED -- FOR EXTERNAL USE ONLY-- active Not Available Not Available N ot Available hydrocortiso ne 2.5 % topical ointment APPLY TOPICALLY TO THE AFFECTED AREA(S) EVERY EVENING active Not Available Not Available No t Available ketoconazole 2 % topical cream APPLY TOPICALLY TO THE AFFECTED AREA(S) EVERY MORNING active Not Available Not Available No t Available ondansetron 4 mg disintegrati ng tablet DISSOLVE ONE TABLET BY MOUTH THREE TIMES DAILY NEEDED FOR NAUSEA active Not Available Not Available No t Available fluticasone propionate 50 mcg/actuatio n nasal spray,suspen abhi instill one SPRAY IN EACH NOSTRIL EVERY DAY active Not Available Not Available No t Available modafinil 100 mg tablet TAKE TWO TABLETS BY MOUTH EVERY MORNING prior TO 800am active Not Available Not Available No t Available escitalopram 20 mg tablet TAKE ONE TABLET BY MOUTH EVERY DAY FOR depression active Not Available Not Available N ot Available bupropion HCl XL 300 mg 24 hr tablet, extended release TAKE ONE TABLET BY MOUTH EVERY DAY FOR depression active Not Available Not Available N ot Available nitrofuranto in monohydrate/ macrocrystal s 100 mg capsule TAKE ONE CAPSULE BY MOUTH EVERY TWELVE HOURS FOR 10 DAYS -- FINISH ALL MEDICINE -- --TAKE WITH A MEAL/FOOD-- active Not Available Not Available Not Available Myrbetriq 50 mg tablet,exten ded release TAKE ONE TABLET BY MOUTH EVERY DAY active Not Available Not Available No t Available Mounjaro 2.5 mg/0.5 mL subcutaneous pen injector INJECT 2.5MG SUBCUTANEOU SLY ONCE A WEEK active Not Available Not Available No t Available Vitals Date Recorded Body height Body mass index (BMI) Body weight Body temperature Provider Name and Address Organization Details Last Updated DateTime 07/31/2023 160.02 cm 57.6 kg/m2 336259.52 g 97.9 [degF] Devontecely Rojas [facility] & [place] 07/31/2023 11:38:50 Social History None recorded. Functional Status Question Answer Note LastModified by Organization D etails LastModified Time What is your level of alcohol consumption? None Information not available 07/31/2023 Mental Status None recorded. Family History Relationship Description Onset Age of this Age Resolved Age Notes LastModified by Organization Details LastModified Time Mother Diabetes mellitus dec [email or web address] Not available 2022 11:42:18 Father Malignant neoplasm of lung dec [email or web address] Not available 2022 11:42:32 Brother COVID-19 dec [email or web address] Not availab le 07/31/2023 11:42:47 Sister Congestive heart failure dec [email or web address] Not available 2022 11:42:58 Medical History No medical history recorded. Gynecological HistoryNo gynecological history recorded. Obstetrics History GPAL:G 0 P 0 0 0 0 Past Encounters Encounter ID Performer Location Encounter Start Date Encounter Closed Date Diagnosis/Indication Diagnosis SNOMED-CT Code Diagnosis ICD10 Code Diagnosis IMO Codes Diagnosis Note [id number] Francisco Hunt Jr, MD [facility] [address] [address] 07/31/2023 11:10:40 07/31/2023 11:58:24 Urge incontinence of urine 17626710 N39.41 57-year-ol d white female with refractory urge incontinen ce. She denies any symptoms of stress incontinen ce. She is currently on oxybutynin 10 mg and Myrbetriq 50 mg with continued leakage. She denies any caffeine use. She would like to consider alternativ e therapies in his enquiring about the InterStim today. I discussed that InterStim is a good option for her. Success rates are 50-60%. [facility] does not allow us to do the InterStim procedures there and I will refer her to [place] for considerat ion. Health Concerns Section Related Observation LastModified by Organization Detai ls LastModified Time None Recorded Concern Status LastModified by Organization Details LastModified Time None Recorded Advance Directives Directive None Recorded Payers Insurance Date Sequence Insurance Name Policy Number Policy Mcqueen Covered Member ID Mcqueen Member ID Guarantor Name 04/25/2024 1 [facility] (MEDICARE REPLACEMENT/AD VANTAGE - HMO) [place] Cardenas [id number] Vianca Cardenas 04/25/2024 2 [facility] (MEDICAID REPLACEMENT - HMO) Vianca Cardenas [id number] Vianca Cardenas Notes Date Note Type Note Provider Name and Address Organization Details Recorded Time 07/31/2023 text/html patient is a 57-year-old white female with a history of urge incontinence. I previously saw her at [facility]. He has been 1 year since her last visit. She continues on oxybutynin 10 mg and Mybetriq 50 mg with unsatisfactory results. She states she has 2 accidents a day and wears 2-3 depends per day. She would like to consider alternative therapies. We have discussed InterStim in the past. Francisco Hunt Jr, MD [address] [place] [address], [address], [place], [address], [facility] [place] [facility] [place] 07/31/2023 12:05:41 OBGyn Episode No OBEpisode recorded.
[2025-07-01 22:01] VITALS: BP 138/51; PULSE 61; O2SAT 97
[2025-07-01 22:03] VITALS: BP 145/65; PULSE 60; RESP 20; TEMP 36.8; O2SAT 96; BMI 49.2
[2025-07-01 22:31] VITALS: BP 126/55; PULSE 60; O2SAT 96
[2025-07-01] MEDS: TET/DIPHTH/PERT-ADULT 0.5ML SYRINGE 0.5 ML IM (22:41)
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
[2025-07-02 00:33] VITALS: BP 130/62; PULSE 60; RESP 18; TEMP 36.8; O2SAT 98
== END 2025-07-02 00:36 | disposition home or self-care (01) ==
PROVIDERS: Emergency Provider Student in an Organized Health Care Education/Training Program; PCP Family Medicine
DX: S71.112A Laceration without foreign body, left thigh, initial encounter (principal); W26.0XXA Contact with knife, initial encounter
CPT/HCPCS: 12001; 90471; 90715; 99283

== ENCOUNTER 2025-07-08 09:55 | Outpatient (CLI) | payer MEDICARE, SELFPAY ==
[2025-07-08] MEDS: ALBUTEROL 0.083% 2.5 MG/3 ML NEB IH (10:19)
== END 2025-07-08 23:59 | disposition home or self-care (01) ==
LOC: RT 09:55
PROVIDERS: PCP Family Medicine; Visit Provider Internal Medicine Pulmonary Disease
DX: R94.2 Abnormal results of pulmonary function studies (principal); R06.09 Other forms of dyspnea; R06.02 Shortness of breath
CPT/HCPCS: 94010; 94618

== ENCOUNTER → 2025-08-17 15:04 | Outpatient (RCR) | payer MEDICARE, SELFPAY | LOC: PULREHAB 15:04 | PROVIDERS: PCP Family Medicine; Visit Provider Internal Medicine Pulmonary Disease | DX: R06.09 Other forms of dyspnea (principal) | CPT/HCPCS: 94626; G0237 ==

== ENCOUNTER 2025-08-19 09:35 | Outpatient (CLI) | payer MEDICARE, SELFPAY ==
[2025-08-19 19:57] LABS: Coronavirus 19, PCR Not Detected (NotDetected); Influenza A, PCR Not Detected (NotDetected); Influenza B, PCR Not Detected (NotDetected)
== END 2025-08-19 23:59 | disposition home or self-care (01) ==
LOC: LAB.DROPOF 08-23 09:36
PROVIDERS: PCP Family Medicine; Visit Provider Family Medicine
DX: R05.1 Acute cough (principal)
CPT/HCPCS: 87636